=== PATIENT | male | born 1950 | race Caucasian/White ===

== ENCOUNTER 2018-01-29 12:54 | Outpatient (CLI) | payer MEDICARE, OTHER ==
--- NOTE | 2018-01-29 14:51 | XRAY Report ---
Procedure Date: 01/29/2018 Accession Number: [id number] / [id number] Procedure: XR - Hips 2V BILAT CPT Code: FULL RESULT: EXAM: PELVIS AND BILATERAL HIPS RADIOGRAPHY EXAM DATE: 01/29/2018 01:21 PM. CLINICAL HISTORY: DAWSON HIP px. COMPARISON: None. TECHNIQUE: 1 view of the pelvis and 1 view of each hip. FINDINGS: Bones: No fracture or bone lesion. Joints: The bilateral hip, pubis symphysis, and sacroiliac joints are preserved. Soft Tissues: Vascular stent in place. IMPRESSION: Unremarkable pelvis and bilateral hip radiography for age. RADIA
== END 2018-01-29 12:55 | disposition home or self-care (01) ==
LOC: DI 12:54
PROVIDERS: ATTEND Family Medicine
DX: M25.551 Pain in right hip (principal); M25.552 Pain in left hip
CPT/HCPCS: 73521

== ENCOUNTER 2019-07-30 10:02 | Outpatient (CLI) | payer MEDICARE, OTHER ==
[2019-07-30] MEDS ORDERED: IOVERSOL 320 100 ML VIAL IVP ONE ×2 (10:32→12:58)
--- NOTE | 2019-07-30 13:23 | CT Report ---
Reason: RETROMOLAR Procedure Date: 07/30/2019 Accession Number: [id number] / [id number] Procedure: CT - ANGIO LOWER EXT W/WO - RT CPT Code: Final Report FULL RESULT: EXAM: CT ANGIOGRAM RIGHT LOWER EXTREMITY WITH CONTRAST DATE: 07/30/2019 11:25 AM HISTORY: Retromolar cancer. Evaluation of the right lower extremity vessels for graft procedure. COMPARISONS: None. TECHNIQUE: Thin-section axial images were acquired of the lower extremity from the pelvis to the foot in arterial phase after administration of intravenous contrast. IV contrast: 120 cc Optiray 320. Post-processing: Multiplanar MPR and 3D MIP reformats. Other: None. In accordance with CT protocol optimization, one or more of the following dose reduction techniques were utilized for this exam: automated exposure control, adjustment of mA and/or KV based on patient size, or use of iterative reconstructive technique. FINDINGS: Bones: No fracture or bone lesion. Joints: Mild to moderate right hip osteoarthritis. Mild to moderate right knee osteoarthritis. Severe first MTP joint osteoarthritis. Musculature: Normal. No fatty atrophy. Vascular Structures: Calcified plaques at the visualized aorta. Moderate to severe stenosis at the origin of the right renal artery. There is a 1.1 x 0.8 cm saccular aneurysm arising from the right anterolateral aspect of the infrarenal segment of the abdominal aorta. A distal abdominal aortic stent is present. Calcified plaques within the iliac arteries. There is an approximately 6 x 5 mm saccular aneurysm arising from the anteromedial aspect of the right common femoral artery. The right superficial femoral artery is occluded from the level of the right groin to the level of the distal femoral metaphysis (approximate 24 cm long segment). The deep right femoral artery is patent. Contrast is present within the popliteal artery lumen. Calcified plaques at the popliteal artery. Mild to moderate focal stenoses at the popliteus artery. Calcified plaques within the proximal peroneal artery. The peroneal artery is patent. There is lack of contrast within the anterior tibial artery lumen from the level of the proximal tibial diaphysis through the foot. The posterior tibial artery is patent. There are areas of mild to severe stenoses within the visualized left superficial femoral artery. Moderate stenosis within the left popliteal artery. The left posterior tibial and peroneal arteries are patent. There is lack of contrast within the left anterior tibial artery at the level of the lower leg. Other: The other visualized soft tissues are unremarkable. IMPRESSION: 1. 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 2. Occlusion of the right superficial femoral artery from the level of the right groin to the level of the distal femoral metaphysis (approximately 24 cm long segment). Mild to moderate focal stenoses at the right popliteal artery. Occlusion of the right anterior tibial artery. 3. Areas of mild to severe stenoses at the visualized left superficial femoral artery. Moderate stenosis at the left popliteal artery. Occluded left anterior tibial artery. RADIA
--- NOTE | 2019-08-03 13:59 | CT Report ---
Reason: RETROMOLAR AREA CA Procedure Date: 07/30/2019 Accession Number: [id number] / [id number] Procedure: CT - CHEST W CPT Code: Final Report FULL RESULT: EXAM: CT CHEST EXAM DATE: 07/30/2019 11:25 AM. CLINICAL HISTORY: Retromolar area CA. COMPARISONS: None. TECHNIQUE: Routine helical CT imaging was performed through the chest. IV contrast: 120 mL Optiray 320. Reconstructions: Coronal and sagittal. In accordance with CT protocol optimization, one or more of the following dose reduction techniques were utilized for this exam: automated exposure control, adjustment of mA and/or KV based on patient size, or use of iterative reconstructive technique. FINDINGS: Lungs/Pleura: Paraseptal emphysema. Mild centrilobular emphysema. No lung mass or suspicious nodule. Mediastinum: At least moderate coronary arterial calcifications. No cardiomegaly. No bulky mediastinal adenopathy. No pericardial effusion. Moderate atherosclerotic calcifications of the descending thoracic aorta and aortic arch. No thoracic aortic aneurysm. Abdominal aortic stent partially imaged. Bones: Unremarkable. Visualized Abdomen: Dependent gallstones. Large right renal parapelvic cyst. Other: None. IMPRESSION: 1. No evidence for thoracic metastatic disease. 2. Emphysema. 3. Cholelithiasis. RADIA
== END 2019-07-30 10:03 | disposition home or self-care (01) ==
LOC: DI 10:02
PROVIDERS: ATTEND Otolaryngology
DX: C06.2 Malignant neoplasm of retromolar area (principal); I71.4 Abdominal aortic aneurysm, without rupture; I70.92 Chronic total occlusion of artery of the extremities; I70.201 Unspecified atherosclerosis of native arteries of extremities, right leg; J43.9 Emphysema, unspecified; K80.20 Calculus of gallbladder without cholecystitis without obstruction
CPT/HCPCS: 71260; 73706; Q9967

== ENCOUNTER 2019-08-13 10:43 | Outpatient (CLI) | payer MEDICARE, OTHER ==
[2019-08-13] MEDS ORDERED: IOVERSOL 320 100 ML VIAL IVP ONE ×2 (10:52→11:48)
[2019-08-13 11:11] LABS: CREATININE 1.3 mg/dL (0.6-1.2)
--- NOTE | 2019-08-13 14:03 | CT Report ---
Reason: RETROMOLAR CA Procedure Date: 08/13/2019 Accession Number: [id number] / [id number] Procedure: CT - ANGIO LOWER EXT W/WO - LT CPT Code: Final Report FULL RESULT: EXAM: CT ANGIOGRAM ABDOMEN AND PELVIS, WITH LOWER EXTREMITY ARTERY RUNOFF EXAM DATE: 08/13/2019 11:43 AM. CLINICAL HISTORY: Retromolar carcinoma. COMPARISON: 07/30/2019 right lower extremity CTA. TECHNIQUE: Routine helical imaging was performed through the abdomen, pelvis and bilateral lower extremities in arterial phase. IV Contrast: 125 mL Optiray 320. Reconstructions: Coronal, sagittal, and 3D MIP reconstructions were performed. FINDINGS: Vascular: Partially imaged stent graft in the distal infrarenal abdominal aorta. Calcified atherosclerotic plaque is present within the bilateral proximal common iliac arteries without significant stenosis. The internal and external iliac arteries are patent. The common femoral arteries patent. The superficial femoral artery is patent, with 90% stenosis at the mid superficial femoral artery (series 6 image 151). Additionally, there is 90% stenosis of the distal superficial femoral artery at the level of the adductor canal (series 6 image 204). The profunda femoris artery is patent. The popliteal artery is patent, with up to 50% stenosis. The proximal tibial artery is patent. There is occlusion of the proximal anterior tibial artery with immediate reconstitution. The distal half of the peroneal artery is occluded. The posterior tibial artery is patent. Inferior vena cava normal. Abdomen: Image salt abdominal organs are unremarkable. Imaged small bowel and colon is unremarkable. Pelvis: Pelvic organs, bowel, and bladder unremarkable for arterial phase enhancement. Pelvic contents otherwise normal. Extremities: Distal fibula fracture nonunion, with one half shaft width posterior displacement of the distal fracture fragment. Healed fracture of the distal tibial diaphysis. Postsurgical changes of prior instrumentation across the medial malleolus. No significant degenerative changes. IMPRESSION: 1. High-grade stenoses of the mid and distal left superficial arteries measuring 90%. 2. 50% stenosis of the left popliteal artery. 3. Occlusion of the proximal left anterior tibial artery and distal peroneal artery. RADIA
== END 2019-08-13 10:44 | disposition home or self-care (01) ==
LOC: DI 10:43
PROVIDERS: ATTEND Otolaryngology
DX: C06.2 Malignant neoplasm of retromolar area (principal); I70.202 Unspecified atherosclerosis of native arteries of extremities, left leg
CPT/HCPCS: 36415; 73706; 82565; Q9967

== ENCOUNTER 2020-12-20 15:54 | Emergency (ER) | payer MEDICARE, OTHER ==
--- NOTE | 2020-12-20 16:44 | ED Physician Documentation ---
PD HPI HEENT - Stated complaint Stated Complaint: SOA/GROWTH IN MOUTH WITH PX - Chief complaint Chief Complaint: Resp - History obtained from History obtained from: Patient - History of Present Illness Timing - onset: How many days ago (2-3 days of right lower gum/mouth irritation. New dentures feel like they were rubbing in that area and now pain with some swelling.) Timing - duration: Days (2) Timing - details: Gradual onset, Still present Location: Mouth (right lower gums. has had teeth all removed, and neck/mouth cancer with surgery and RT. Had dentures fitted, and started wearing them recently, with feeling of not fitting and rubbing.) Worsens: Swalllowing, Other (palpation) Associated symptoms: No: Fever, Congestion, Unable to swallow (but pain with swallowing.) Review of Systems Constitutional: denies: Fever, Chills Nose: denies: Rhinorrhea / runny nose, Congestion Respiratory: reports: Dyspnea, Cough (mild cough) GI: denies: Nausea, Vomiting, Diarrhea PD PAST MEDICAL HISTORY - Past Medical History Cardiovascular: Hypertension, High cholesterol, Peripheral Vascular Disease Respiratory: COPD GI: GERD : Benign prostate hypertrophy Musculoskeletal: Chronic back pain - Past Surgical History Ortho: Other (ORIF left tib/fib with multiple subsequent procedures including pedicle flap) Cardiovascular: Angioplasty (aortic) HEENT: Other (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 ) Derm: Skin grafts - Present Medications Home Medications: Ambulatory Orders Medication Instructions Recorded Confirmed Aspirin [Adult Aspirin Regimen] 81 mg PO DAILY 03/08/20 12/20/20 Ibuprofen [Motrin Ib] 400 mg PO DAILY 03/08/20 12/20/20 Lovastatin 20 mg PO DAILY 03/08/20 12/20/20 Metoprolol Tartrate 25 tab PO DAILY 03/08/20 12/20/20 Multivitamin [Multiple Vitamins] 1 tab PO DAILY 03/08/20 12/20/20 Omeprazole 20 mg PO DAILY 03/08/20 12/20/20 Sertraline HCl 100 mg PO DAILY 03/08/20 12/20/20 Tamsulosin [Flomax] 0.4 mg PO DAILY 03/08/20 12/20/20 diphenhydrAMINE [Benadryl] 25 mg PO Q4-6H PRN 03/08/20 12/20/20 oxyCODONE ER [OxyCONTIN] 10 mg PO QID 03/08/20 12/20/20 Chlorhexidine Gluconate [Peridex] 15 ml MM TID #118 ml 12/20/20 Clindamycin [Cleocin] 150 mg PO TID 7 Days #15 cap 12/20/20 Ipratropium/Albuterol [Combivent 2 puffs IH QID #1 inhaler 12/20/20 Respimat] LORazepam [Ativan] 1 mg PO Q6H PRN #20 tablet 12/20/20 dexAMETHasone [Decadron] 4 mg PO DAILY #5 tablet 12/20/20 - Allergies Allergies/Adverse Reactions: Allergies Allergy/AdvReac Type Severity Reaction Status Date / Time No Known Drug Allergies Allergy Verified 12/23/20 17:20 PD ED PE NORMAL - Vitals Vital signs reviewed: Yes - General General: Alert and oriented X 3, No acute distress, Well developed/nourished - HEENT HEENT: Ears normal, Moist mucous membranes, Other (old scarring right anterior neck and right inner mouth. There is linear white area lower gums (edentulous) with some redness and swelling of gum, but no fluctuance nor discahrge. ) Results - Vitals Vitals: Oxygen O2 Source Room air - Labs Labs: Laboratory Tests 12/20/20 12/20/20 12/20/20 17:09 17:09 17:09 WBC 4.7 L RBC 3.44 L Hgb 12.3 L Hct 35.2 L MCV 102.3 H MCH 35.8 H MCHC 34.9 RDW 13.3 Plt Count 193 MPV 9.8 Neut # (Auto) 2.8 Lymph # (Auto) 1.2 L [place] # (Auto) 0.5 Eos # (Auto) 0.2 Baso # (Auto) 0.1 Absolute Nucleated RBC 0.00 Nucleated RBC % 0.0 Sodium 139 Potassium 2.9 L Chloride 101 Carbon Dioxide 26 Anion Gap 12.0 BUN 9 Creatinine 0.8 Estimated GFR (MDRD) 96 Glucose 105 H Calcium 8.6 Total Bilirubin 0.5 AST 70 H ALT 34 Alkaline Phosphatase 114 Total Protein 7.0 Albumin 3.3 Globulin 3.7 Albumin/Globulin Ratio 0.9 L Lipase 78 H TSH 1.96 Salicylates < 6.0 Urine Opiates Screen Ur Oxycodone Screen Urine Methadone Screen Ur Propoxyphene Screen Acetaminophen 12 Ur Barbiturates Screen Ur Tricyclics Screen Ur Phencyclidine Scrn Ur Amphetamine Screen U Methamphetamines Scrn U Benzodiazepines Scrn Urine Cocaine Screen U Cannabinoids Screen Ethyl Alcohol 152.8 12/20/20 18:10 WBC RBC Hgb Hct MCV MCH MCHC RDW Plt Count MPV Neut # (Auto) Lymph # (Auto) [place] # (Auto) Eos # (Auto) Baso # (Auto) Absolute Nucleated RBC Nucleated RBC % Sodium Potassium Chloride Carbon Dioxide Anion Gap BUN Creatinine Estimated GFR (MDRD) Glucose Calcium Total Bilirubin AST ALT Alkaline Phosphatase Total Protein Albumin Globulin Albumin/Globulin Ratio Lipase TSH Salicylates Urine Opiates Screen NEGATIVE Ur Oxycodone Screen POSITIVE H Urine Methadone Screen NEGATIVE Ur Propoxyphene Screen NEGATIVE Acetaminophen Ur Barbiturates Screen NEGATIVE Ur Tricyclics Screen NEGATIVE Ur Phencyclidine Scrn NEGATIVE Ur Amphetamine Screen NEGATIVE U Methamphetamines Scrn NEGATIVE U Benzodiazepines Scrn POSITIVE H Urine Cocaine Screen NEGATIVE U Cannabinoids Screen NEGATIVE Ethyl Alcohol - Rads (name of study) chest xray Radiology: Prelim report reviewed (no pneumonia), See rad report PD MEDICAL DECISION MAKING - ED course Complexity details: reviewed results (chest xray without pneumonia), considered differential (he is concerned about recurrent tumor or alternatively abscess in area. Clinically not seeming space occupying enough to affect swallow but lot of scarring. Appears gum issue with redness and point of white/local infection or irritation. ), d/w patient Departure - Departure Disposition: 01 Home, Self Care Clinical Impression: Mild chronic obstructive pulmonary disease, Alcoholism Blister of gum with infection Qualifiers: Encounter type: initial encounter Qualified Code(s): S00.522A - Blister (nonthermal) of oral cavity, initial encounter Alcohol withdrawal Qualifiers: Complication of substance-induced condition: uncomplicated Qualified Code(s): F10.230 - Alcohol dependence with withdrawal, uncomplicated Condition: Stable Record reviewed to determine appropriate education?: Yes Instructions: ED Withdrawal Alcohol, ED COPD Flare Follow-Up: López Brasher MD [Primary Care Provider] - Prescriptions: LORazepam [Ativan] 1 mg PO Q6H PRN #20 tablet PRN Reason: Alcohol Withdrawal Clindamycin [Cleocin] 150 mg PO TID 7 Days #15 cap Ipratropium/Albuterol [Combivent Respimat] 2 puffs IH QID #1 inhaler dexAMETHasone [Decadron] 4 mg PO DAILY #5 tablet Chlorhexidine Gluconate [Peridex] 15 ml MM TID #118 ml Comments: Lesion on your gum looks like a an abrasion or irritation with local infection. I would use the chlorhexidine oral rinse twice daily in particular in that area, swish and spit. Also clindamycin as directed for the next 5 days for apparent infection in the gum. Regarding your breathing, I believe it is your COPD acting up which can relate to your starting smoking again and/or environmental irritants. Use the Combivent inhaler 2 puffs 4 times a day regularly. Also Decadron steroid daily for the next 5 days to help with bronchial inflammation. Please refrain from alcohol as you are hoping to do. Use lorazepam instead to help with withdrawal symptoms. Initially 1 to 2 tablets every 6-8 hours. Try to taper down the dose and frequency over the next 3 to 5 days to help with withdrawal. Follow-up with detox as planned. Follow-up with your throat cancer specialist for the planned follow-up scanning to ensure no recurrence of tumors. Discharge Date/Time: 12/20/20 18:43
[2020-12-20] MEDS ORDERED: IPRATROPIUM/ALBUTEROL 3 ML NEB INH STA (17:00)
[2020-12-20] MEDS ORDERED: CLINDAMYCIN 150 MG CAPSULE PO STA (17:03)
[2020-12-20] MEDS ORDERED: CHERRY SYRUP 10 ML UDC PO ONE (17:03)
[2020-12-20] MEDS ORDERED: DEXAMETHASONE 10 MG/ML VIAL PO STA (17:03)
[2020-12-20] MEDS ORDERED: diphenhydrAMINE ELIXIR 25 MG/10 ML UDC PO STA (17:04)
[2020-12-20 17:21] LABS: BASOPHILS # (AUTO) 0.1 10^3/uL (0.0-0.1); BASOPHILS % (AUTO) 1.1 %; EOSINOPHILS # (AUTO) 0.2 10^3/uL (0.0-0.7); EOSINOPHILS % (AUTO) 4.3 %; HCT - HEMATOCRIT 35.2 % (42.0-52.0); HGB - HEMOGLOBIN 12.3 g/dL (14.0-18.0); LYMPHOCYTES # (AUTO) 1.2 10^3/uL (1.5-3.5); LYMPHOCYTES % (AUTO) 25.2 %; MEAN CORPUSCULAR HEMOGLOBIN 35.8 pg (27.0-31.0); MEAN CORPUSCULAR HGB CONC 34.9 g/dL (32.0-36.0); MEAN CORPUSCULAR VOLUME 102.3 fL (80.0-94.0); MEAN PLATELET VOLUME 9.8 fL (7.4-11.4); MONOCYTES # (AUTO) 0.5 10^3/uL (0.0-1.0); MONOCYTES % (AUTO) 10.4 %; NEUTROPHILS # (AUTO) 2.8 10^3/uL (1.5-6.6); NEUTROPHILS % (AUTO) 58.6 %; PLT - PLATELET COUNT 193 10^3/uL (130-450); RED BLOOD COUNT 3.44 10^6/uL (4.70-6.10); RED CELL DISTRIBUTION WIDTH 13.3 % (12.0-15.0); WHITE BLOOD COUNT 4.7 x10^3/uL (4.8-10.8)
[2020-12-20 17:39] LABS: ACETAMINOPHEN 12 ug/mL (10-30); ALBUMIN 3.3 g/dL (3.2-5.5); ALBUMIN/GLOBULIN RATIO 0.9 (1.0-2.2); ALKALINE PHOSPHATASE 114 IU/L (42-121); ALT ALANINE AMINOTRANSFERASE 34 IU/L (10-60); AST ASPARTATE AMINOTRANSFERASE 70 IU/L (10-42); BILIRUBIN,TOTAL 0.5 mg/dL (0.2-1.0); BUN - BLOOD UREA NITROGEN 9 mg/dL (6-20); CALCIUM 8.6 mg/dL (8.5-10.3); CARBON DIOXIDE - CO2 26 mmol/L (21-32); CHLORIDE 101 mmol/L (101-111); CREATININE 0.8 mg/dL (0.6-1.2); ETOH - ETHANOL 152.8 mg/dL; GFR - MDRD 96 (>89); GLUCOSE 105 mg/dL (70-100); LIPASE 78 U/L (22-51); POTASSIUM 2.9 mmol/L (3.5-5.0); SALICYLATE < 6.0 mg/dL; SODIUM 139 mmol/L (135-145)
[2020-12-20 18:16] LABS: MUDS CUTOFF CONCENTRATIONS CUTOFF CONC BELOW:
--- NOTE | 2020-12-20 18:19 | XRAY Report ---
PROCEDURE: Chest 1 View X-Ray INDICATIONS: chest pain TECHNIQUE: One view of the chest was acquired. COMPARISON: Images from prior studies not available for review. FINDINGS: Surgical changes and devices: None. Lungs and pleura: No pleural effusions or pneumothorax. Lungs are clear. Mediastinum: Mediastinal contours appear normal. Heart size is normal. Bones and chest wall: No suspicious bony lesions. Overlying soft tissues appear unremarkable. IMPRESSION: Chest without acute cardiopulmonary abnormalities. No focal airspace disease. Reviewed by: Aniket Suazo MD on 12/20/2020 6:18 PM PDT Approved by: Aniket Suazo MD on 12/20/2020 6:18 PM PDT Station ID: [id number]
[2020-12-20] MEDS ORDERED: diazePAM 5 MG TABLET PO STA (18:21)
[2020-12-20 18:32] VITALS: BP 171/76
[2020-12-20 18:33] LABS: AMPHETAMINE SCREEN,URINE NEGATIVE (NEGATIVE); BARBITURATE SCREEN,UR NEGATIVE (NEGATIVE); BENZODIAZEPINES SCREEN, URINE POSITIVE (NEGATIVE); COCAINE SCREEN URINE NEGATIVE (NEGATIVE); METHADONE SCREEN, URINE NEGATIVE (NEGATIVE); METHAMPHETAMINES SCREEN, URINE NEGATIVE (NEGATIVE); OPIATE SCREEN, URINE NEGATIVE (NEGATIVE); OXYCODONE SCREEN, URINE POSITIVE (NEGATIVE); PROPOXYPHENE SCREEN, URINE NEGATIVE (NEGATIVE); THC CANNABINOID SCREEN, URINE NEGATIVE (NEGATIVE); TRICYCLIC ANTIDEPRESSANT,URINE NEGATIVE (NEGATIVE)
== END 2020-12-20 18:43 | disposition home or self-care (01) ==
LOC: ED 15:54
DX: S00.522A Blister (nonthermal) of oral cavity, initial encounter (principal); X58.XXXA Exposure to other specified factors, initial encounter; K05.11 Chronic gingivitis, non-plaque induced; F10.230 Alcohol dependence with withdrawal, uncomplicated; J44.9 Chronic obstructive pulmonary disease, unspecified; F17.200 Nicotine dependence, unspecified, uncomplicated; Z85.89 Personal history of malignant neoplasm of other organs and systems; I10 Essential (primary) hypertension; Z79.82 Long term (current) use of aspirin
CPT/HCPCS: 36415; 71045; 80053; 80306; 80307; 83690; 84443; 85025; 94640; 99283; 99284; A9270; G0480; 80320; 80329

== ENCOUNTER 2020-12-23 16:36 | Outpatient (CLI) | payer MEDICARE, OTHER | END 2020-12-23 16:37 | disposition critical access hospital (66) | LOC: EMS 16:36 | DX: R53.1 Weakness (principal) | CPT/HCPCS: A0425; A0429 ==

== ENCOUNTER 2020-12-23 17:12 | Emergency (ER) | payer MEDICARE, OTHER ==
[2020-12-23] MEDS ORDERED: FOLIC ACID INJ 1 MG, THIAMINE INJ 100 MG, MAGNESIUM SULFATE 2 GM, MULTIVITAMIN 10 ML in... IV STA ×5 (17:30)
--- NOTE | 2020-12-23 17:44 | ED Physician Documentation ---
History of Present Illness - Stated complaint Stated Complaint: WEAKNESS - Chief complaint Chief Complaint: General - History obtained from History obtained from: Patient - History of Present Illness Timing: Today Pain level max: 0 Pain level now: 0 - Additonal information Additional information: Patient is a 70-year-old male, alcoholic who presents to the emergency department requesting detox. He states he has been feeling weak for the past week or so. He states he has had several episodes of near falling. No injuries. He also states that he has a sore on his tongue, history of mouth cancer, unclear which type. Patient does not know. He is not suicidal or homicidal. He wants help stopping drinking. Has been taking Ativan at home and drinking 2-3 drinks per day. Review of Systems Ten Systems: 10 systems reviewed and negative Constitutional: denies: Fever, Chills Respiratory: denies: Cough GI: denies: Vomiting, Diarrhea Musculoskeletal: denies: Neck pain, Back pain Neurologic: denies: Headache PD PAST MEDICAL HISTORY - Past Medical History Past Medical History: Yes Cardiovascular: Hypertension, High cholesterol, Peripheral Vascular Disease Respiratory: Emphysema Neuro: None Endocrine/Autoimmune: None GI: GERD : Benign prostate hypertrophy HEENT: None Psych: None Musculoskeletal: Chronic back pain Derm: Other - Past Surgical History Past Surgical History: Yes Ortho: Other Cardiovascular: Angioplasty HEENT: Other Derm: Skin grafts - Present Medications Home Medications: Ambulatory Orders Medication Instructions Recorded Confirmed Aspirin [Adult Aspirin Regimen] 81 mg PO DAILY 03/08/20 12/23/20 Metoprolol Tartrate 25 tab PO BID 03/08/20 12/23/20 Multivitamin [Multiple Vitamins] 1 tab PO DAILY 03/08/20 12/23/20 Omeprazole 20 mg PO DAILY 03/08/20 12/23/20 Sertraline HCl 100 mg PO DAILY 03/08/20 12/23/20 Tamsulosin [Flomax] 0.4 mg PO DAILY 03/08/20 12/23/20 oxyCODONE ER [OxyCONTIN] 10 mg PO QID 03/08/20 12/23/20 Clindamycin [Cleocin] 150 mg PO TID 7 Days #15 cap 12/20/20 12/23/20 Ipratropium/Albuterol [Combivent 2 puffs IH QID #1 inhaler 12/20/20 12/23/20 Respimat] LORazepam [Ativan] 1 mg PO Q6H PRN #20 tablet 12/20/20 12/23/20 dexAMETHasone [Decadron] 4 mg PO DAILY #5 tablet 12/20/20 12/23/20 Baclofen 20 mg PO 12/23/20 Benzocaine [Hurricaine] 1 spray TOP DAILY 12/23/20 12/23/20 Gabapentin [Neurontin] 900 mg PO QID 12/23/20 12/23/20 Senna [Senokot] 1 tab PO DAILY 12/23/20 12/23/20 - Allergies Allergies/Adverse Reactions: Allergies Allergy/AdvReac Type Severity Reaction Status Date / Time No Known Drug Allergies Allergy Verified 12/23/20 17:20 - Social History Does the pt smoke?: No Smoking Status: Never smoker Does the pt drink ETOH?: Yes Does the pt have substance abuse?: No - Immunizations Immunizations are current?: Yes PD ED PE NORMAL - Vitals Vital signs reviewed: Yes - General General: Alert and oriented X 3, No acute distress - HEENT HEENT: Other (Dry mucous membranes. There is a small white lesion on the right side of the tongue. No visible ulceration.) - Neck Neck: Supple, no meningeal sign - Cardiac Cardiac: RRR, Strong equal pulses - Respiratory Respiratory: No respiratory distress, Clear bilaterally - Abdomen Abdomen: Soft, Non tender, Non distended - Derm Derm: Warm and dry - Extremities Extremities: No edema, No calf tenderness / cord - Neuro Neuro: Alert and oriented X 3 - Psych Psych: Normal mood, Normal affect Results - Vitals Vitals: Vital Signs - 24 hr 12/23/20 12/23/20 12/23/20 17:17 19:20 21:00 Temperature 36.7 C 36.6 C 36.7 C Heart Rate 70 74 75 Respiratory 12 17 17 Rate Blood Pressure 108/63 157/97 H 172/105 H O2 Saturation 98 98 98 Oxygen O2 Source Room air - Labs Labs: Laboratory Tests 12/23/20 12/23/20 12/23/20 17:36 17:36 17:40 WBC 5.0 RBC 3.26 L Hgb 11.7 L Hct 34.2 L MCV 104.9 H MCH 35.9 H MCHC 34.2 RDW 13.9 Plt Count 184 MPV 9.8 Neut # (Auto) 4.5 Lymph # (Auto) 0.3 L [facility] # (Auto) 0.2 Eos # (Auto) 0.0 Baso # (Auto) 0.0 Absolute Nucleated RBC 0.00 Nucleated RBC % 0.0 Sodium Potassium Chloride Carbon Dioxide Anion Gap BUN Creatinine Estimated GFR (MDRD) Glucose Calcium Phosphorus Magnesium Total Bilirubin AST ALT Alkaline Phosphatase Total Protein Albumin Globulin Albumin/Globulin Ratio Lipase TSH Urine Color YELLOW Urine Clarity CLEAR Urine pH 6.0 Ur Specific [place] 1.015 Urine Protein NEGATIVE Urine Glucose (UA) NEGATIVE Urine Ketones NEGATIVE Urine Occult Blood NEGATIVE Urine Nitrite NEGATIVE Urine Bilirubin NEGATIVE Urine Urobilinogen 0.2 (NORMAL) Ur Leukocyte Esterase NEGATIVE Ur Microscopic Review NOT INDICATED Urine Culture Comments NOT INDICATED Nasal Adenovirus (PCR) NOT DETECTED Nasal B. parapertussis DNA (PCR) NOT DETECTED Nasal Coronavir 229E PCR NOT DETECTED Nasal Coronavir HKU1 PCR NOT DETECTED Nasal Coronavir NL63 PCR NOT DETECTED Nasal Coronavir OC43 PCR NOT DETECTED Nasal Enterovir/Rhinovir PCR NOT DETECTED Nasal Influenza B PCR NOT DETECTED Nasal Influenza A PCR NOT DETECTED Nasal Parainfluen 1 PCR NOT DETECTED Nasal Parainfluen 2 PCR NOT DETECTED Nasal Parainfluen 3 PCR NOT DETECTED Nasal Parainfluen 4 PCR NOT DETECTED Nasal RSV (PCR) NOT DETECTED Nasal B.pertussis DNA PCR NOT DETECTED Nasal C.pneumoniae (PCR) NOT DETECTED Jamil Human Metapneumo PCR NOT DETECTED Nasal M.pneumoniae (PCR) NOT DETECTED Nasal SARS-CoV-2 (PCR) NOT DETECTED Salicylates Urine Opiates Screen NEGATIVE Ur Oxycodone Screen POSITIVE H Urine Methadone Screen NEGATIVE Ur Propoxyphene Screen NEGATIVE Acetaminophen Ur Barbiturates Screen NEGATIVE Ur Tricyclics Screen NEGATIVE Ur Phencyclidine Scrn NEGATIVE Ur Amphetamine Screen NEGATIVE U Methamphetamines Scrn NEGATIVE U Benzodiazepines Scrn POSITIVE H Urine Cocaine Screen NEGATIVE U Cannabinoids Screen NEGATIVE Ethyl Alcohol 12/23/20 12/23/20 17:40 17:40 WBC RBC Hgb Hct MCV MCH MCHC RDW Plt Count MPV Neut # (Auto) Lymph # (Auto) [facility] # (Auto) Eos # (Auto) Baso # (Auto) Absolute Nucleated RBC Nucleated RBC % Sodium 138 Potassium 3.0 L Chloride 98 L Carbon Dioxide 25 Anion Gap 15.0 H BUN 11 Creatinine 0.9 Estimated GFR (MDRD) 84 L Glucose 135 H Calcium 7.9 L Phosphorus 3.7 Magnesium 1.6 L Total Bilirubin 0.8 AST 65 H ALT 35 Alkaline Phosphatase 93 Total Protein 6.4 L Albumin 3.0 L Globulin 3.4 Albumin/Globulin Ratio 0.9 L Lipase 49 TSH 1.24 Urine Color Urine Clarity Urine pH Ur Specific [place] Urine Protein Urine Glucose (UA) Urine Ketones Urine Occult Blood Urine Nitrite Urine Bilirubin Urine Urobilinogen Ur Leukocyte Esterase Ur Microscopic Review Urine Culture Comments Nasal Adenovirus (PCR) Nasal B. parapertussis DNA (PCR) Nasal Coronavir 229E PCR Nasal Coronavir HKU1 PCR Nasal Coronavir NL63 PCR Nasal Coronavir OC43 PCR Nasal Enterovir/Rhinovir PCR Nasal Influenza B PCR Nasal Influenza A PCR Nasal Parainfluen 1 PCR Nasal Parainfluen 2 PCR Nasal Parainfluen 3 PCR Nasal Parainfluen 4 PCR Nasal RSV (PCR) Nasal B.pertussis DNA PCR Nasal C.pneumoniae (PCR) Jamil Human Metapneumo PCR Nasal M.pneumoniae (PCR) Nasal SARS-CoV-2 (PCR) Salicylates < 6.0 Urine Opiates Screen Ur Oxycodone Screen Urine Methadone Screen Ur Propoxyphene Screen Acetaminophen < 10 L Ur Barbiturates Screen Ur Tricyclics Screen Ur Phencyclidine Scrn Ur Amphetamine Screen U Methamphetamines Scrn U Benzodiazepines Scrn Urine Cocaine Screen U Cannabinoids Screen Ethyl Alcohol 90.2 PD MEDICAL DECISION MAKING - ED course Complexity details: reviewed results, re-evaluated patient, considered differential, d/w patient ED course: Patient feels better after banana bag. He does have some mild electrolyte abnormalities. Tolerating p.o. without difficulty. Ambulating with a steady gait. There are no detox beds available [facility], but the [facility] stabilization facility in [place] states they will likely have a bed tomorrow. Patient is comfortable going home at this time and will follow up with detox tomorrow. He will return if he worsens. Patient counseled regarding signs and symptoms for which I believe and urgent re-evaluation would be necessary. Patient with good understanding of and agreement to plan and is comfortable going home at this time This document was made in part using voice recognition software. While efforts are made to proofread this document, sound alike and grammatical errors may occur. Departure - Departure Disposition: 01 Home, Self Care Clinical Impression: Alcoholism, Dehydration, Hypomagnesemia Condition: Good Instructions: ED Withdrawal Alcohol, ED Dehydration Follow-Up: López Brasher MD [Primary Care Provider] - Within 3 Days Comments: Please call [facility] tomorrow in [place] as they may have a bed for you. Contact: [address] [address] Fax: Discharge Date/Time: 12/23/20 21:45
[2020-12-23 17:45] LABS: MUDS CUTOFF CONCENTRATIONS CUTOFF CONC BELOW:
[2020-12-23 17:47] LABS: BASOPHILS % (AUTO) 0.2 %; HCT - HEMATOCRIT 34.2 % (42.0-52.0); HGB - HEMOGLOBIN 11.7 g/dL (14.0-18.0); LYMPHOCYTES # (AUTO) 0.3 10^3/uL (1.5-3.5); LYMPHOCYTES % (AUTO) 5.4 %; MEAN CORPUSCULAR HEMOGLOBIN 35.9 pg (27.0-31.0); MEAN CORPUSCULAR HGB CONC 34.2 g/dL (32.0-36.0); MEAN CORPUSCULAR VOLUME 104.9 fL (80.0-94.0); MEAN PLATELET VOLUME 9.8 fL (7.4-11.4); MONOCYTES # (AUTO) 0.2 10^3/uL (0.0-1.0); MONOCYTES % (AUTO) 3.4 %; NEUTROPHILS # (AUTO) 4.5 10^3/uL (1.5-6.6); NEUTROPHILS % (AUTO) 90.4 %; PLT - PLATELET COUNT 184 10^3/uL (130-450); RED BLOOD COUNT 3.26 10^6/uL (4.70-6.10); RED CELL DISTRIBUTION WIDTH 13.9 % (12.0-15.0)
[2020-12-23 17:52] LABS: BILIRUBIN,URINE NEGATIVE (NEGATIVE); GLUCOSE, URINE (UA) NEGATIVE (NEGATIVE); KETONES,URINE (UA) NEGATIVE (NEGATIVE); LEUKOCYTE ESTERASE, URINE NEGATIVE (NEGATIVE); NITRITE,URINE NEGATIVE (NEGATIVE); OCCULT BLOOD,URINE NEGATIVE (NEGATIVE); PROTEIN,URINE NEGATIVE (NEGATIVE); UROBILINOGEN,URINE 0.2 (NORMAL) E.U./dL (NORMAL)
[2020-12-23 17:53] LABS: CLARITY,URINE CLEAR (CLEAR)
[2020-12-23 18:01] LABS: AMPHETAMINE SCREEN,URINE NEGATIVE (NEGATIVE); BARBITURATE SCREEN,UR NEGATIVE (NEGATIVE); BENZODIAZEPINES SCREEN, URINE POSITIVE (NEGATIVE); COCAINE SCREEN URINE NEGATIVE (NEGATIVE); METHADONE SCREEN, URINE NEGATIVE (NEGATIVE); METHAMPHETAMINES SCREEN, URINE NEGATIVE (NEGATIVE); OPIATE SCREEN, URINE NEGATIVE (NEGATIVE); OXYCODONE SCREEN, URINE POSITIVE (NEGATIVE); PROPOXYPHENE SCREEN, URINE NEGATIVE (NEGATIVE); THC CANNABINOID SCREEN, URINE NEGATIVE (NEGATIVE); TRICYCLIC ANTIDEPRESSANT,URINE NEGATIVE (NEGATIVE)
[2020-12-23 18:02] LABS: ACETAMINOPHEN < 10 ug/mL (10-30); ALBUMIN/GLOBULIN RATIO 0.9 (1.0-2.2); ALKALINE PHOSPHATASE 93 IU/L (42-121); ALT ALANINE AMINOTRANSFERASE 35 IU/L (10-60); AST ASPARTATE AMINOTRANSFERASE 65 IU/L (10-42); BILIRUBIN,TOTAL 0.8 mg/dL (0.2-1.0); BUN - BLOOD UREA NITROGEN 11 mg/dL (6-20); CALCIUM 7.9 mg/dL (8.5-10.3); CARBON DIOXIDE - CO2 25 mmol/L (21-32); CHLORIDE 98 mmol/L (101-111); CREATININE 0.9 mg/dL (0.6-1.2); ETOH - ETHANOL 90.2 mg/dL; GFR - MDRD 84 (>89); GLUCOSE 135 mg/dL (70-100); LIPASE 49 U/L (22-51); MAGNESIUM 1.6 mg/dL (1.7-2.8); PHOSPHORUS 3.7 mg/dL (2.5-4.6); SALICYLATE < 6.0 mg/dL; SODIUM 138 mmol/L (135-145); TOTAL PROTEIN 6.4 g/dL (6.7-8.2)
[2020-12-23 18:38] LABS: B. PARAPERTUSSIS- RESP PCR PAN NOT DETECTED; B. PERTUSSIS- RESP PCR PANEL NOT DETECTED; C. PNEUMONIAE- RESP PCR PANEL NOT DETECTED; CORONAVIRUS 229E-RESP PCR NOT DETECTED; CORONAVIRUS HKU1-RESP PCR NOT DETECTED; CORONAVIRUS NL63-RESP PCR NOT DETECTED; CORONAVIRUS OC43-RESP PCR NOT DETECTED; HUMAN METAPNEUMOVIRUS NOT DETECTED; INFLUENZA A- RESP PCR PANEL NOT DETECTED; INFLUENZA B - RESP PCR PANEL NOT DETECTED; M. PNEUMONIAE- RESP PCR PANEL NOT DETECTED; PARAINFLUENZA VIRUS 1 NOT DETECTED; PARAINFLUENZA VIRUS 2 NOT DETECTED; PARAINFLUENZA VIRUS 3 NOT DETECTED; PARAINFLUENZA VIRUS 4 NOT DETECTED; RHINOVIRUS/ENTEROVIRUS NOT DETECTED; RSV- RESP PCR PANEL NOT DETECTED; SARS-CoV-2 -RESP PCR PANEL NOT DETECTED
[2020-12-23] MEDS ORDERED: LORazepam 1 MG TABLET PO STA (21:14)
[2020-12-23 21:35] VITALS: BP 172/105
== END 2020-12-23 21:45 | disposition home or self-care (01) ==
LOC: EDUNIT# → ED 17:12 → SUPCPDRO 17:12 → ED 21:45
DX: F10.20 Alcohol dependence, uncomplicated (principal); E86.0 Dehydration; E83.42 Hypomagnesemia; K13.70 Unspecified lesions of oral mucosa; Z85.89 Personal history of malignant neoplasm of other organs and systems; Z20.822 Contact with and (suspected) exposure to COVID-19; I10 Essential (primary) hypertension; Z79.82 Long term (current) use of aspirin
CPT/HCPCS: 36415; 80053; 80306; 80307; 81003; 83690; 83735; 84100; 84443; 85025; 87631; 96360; 96361; 99284; G0480; J3411; J8499; 0202U; 80320; 80329; 81001; 87086

== ENCOUNTER 2022-08-12 12:00 | Outpatient (CLI) | payer MEDICARE, OTHER | END 2022-08-12 12:01 | disposition critical access hospital (66) | LOC: EMS 12:00 | DX: R06.03 Acute respiratory distress (principal); S29.9XXA Unspecified injury of thorax, initial encounter; W18.30XA Fall on same level, unspecified, initial encounter; Y92.002 Bathroom of unspecified non-institutional (private) residence as the place of occurrence of the external cause | CPT/HCPCS: A0425; A0427 ==

== ENCOUNTER 2022-08-12 12:31 | Inpatient (IN) | payer MEDICARE, OTHER ==
[2022-08-12] MEDS ORDERED: fentaNYL 100 MCG/2 ML VIAL IVP STA (12:35)
[2022-08-12] MEDS ORDERED: SODIUM CHLORIDE 0.9% 1,000 ML IV STA (12:35)
[2022-08-12] MEDS ORDERED: PROPOFOL 200 MG/20 ML VIAL IVP STA (12:35)
[2022-08-12] MEDS ORDERED: LIDOCAINE 1%-EPI 1:100000 20 ML MDV SUBQ STA (12:41)
[2022-08-12 12:50] LABS: BASOPHILS # (AUTO) 0.1 10^3/uL (0.0-0.1); BASOPHILS % (AUTO) 0.7 %; EOSINOPHILS % (AUTO) 0.1 %; HCT - HEMATOCRIT 30.5 % (42.0-52.0); HGB - HEMOGLOBIN 8.8 g/dL (14.0-18.0); LYMPHOCYTES # (AUTO) 1.4 10^3/uL (1.5-3.5); LYMPHOCYTES % (AUTO) 7.3 %; MEAN CORPUSCULAR HEMOGLOBIN 24.9 pg (27.0-31.0); MEAN CORPUSCULAR HGB CONC 28.9 g/dL (32.0-36.0); MEAN CORPUSCULAR VOLUME 86.2 fL (80.0-94.0); MEAN PLATELET VOLUME 10.8 fL (7.4-11.4); MONOCYTES # (AUTO) 1.5 10^3/uL (0.0-1.0); MONOCYTES % (AUTO) 7.7 %; NEUTROPHILS # (AUTO) 16.3 10^3/uL (1.5-6.6); NEUTROPHILS % (AUTO) 83.6 %; PLT - PLATELET COUNT 263 10^3/uL (130-450); RED BLOOD COUNT 3.54 10^6/uL (4.70-6.10); RED CELL DISTRIBUTION WIDTH 19.9 % (12.0-15.0); WHITE BLOOD COUNT 19.5 x10^3/uL (4.8-10.8)
[2022-08-12] MEDS ORDERED: iohexoL-300 100 ML VIAL ONE (12:53)
[2022-08-12 12:57] LABS: INR 1.3 (0.8-1.2); PT - PROTHROMBIN TIME 14.9 secs (9.9-12.6)
--- NOTE | 2022-08-12 12:57 | XRAY Report ---
PROCEDURE: Chest 1 View X-Ray INDICATIONS: Chest wall injury TECHNIQUE: One view of the chest was acquired. COMPARISON: None. FINDINGS: Surgical changes and devices: None. Lungs and pleura: Large right pneumothorax. Mediastinum: Mediastinal contours appear normal. Heart size is normal. Bones and chest wall: There are are right ninth and 10th and 11th rib fractures. No suspicious bony lesions. Overlying soft tissues appear unremarkable. IMPRESSION: Right ninth, 10th, 11th rib fractures with a large right pneumothorax. Findings were discussed with the emergency department at 11:[address] Castle is aware of findings . Reviewed by: Ryan Pat on 08/12/2022 11:55 AM [facility] Approved by: Ryan Pat on 08/12/2022 11:55 AM [facility] Station ID: [id number]
--- NOTE | 2022-08-12 13:06 | ED Physician Documentation ---
PD HPI MAJOR TRAUMA - Stated complaint Stated Complaint: GLF/RIB PX - Chief complaint Chief Complaint: Trauma Ch/Bk - History obtained from History obtained from: Patient, EMS - Additional information Additional information: This is 71-year-old gentleman with history of COPD who wears oxygen at home. He was feeling weak and fell and hit his right chest wall on the ground on the way down. He is brought in by ambulance with clear signs of a right-sided pneumothorax including subcu air and lowering blood pressures. Because of acuity history was somewhat limited on initial evaluation. He says he has no heart problems though. Review of the chart shows that he has a history of alcoholism. 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 PD PAST MEDICAL HISTORY - Past Medical History Cardiovascular: Hypertension, High cholesterol, Peripheral Vascular Disease Respiratory: Emphysema Neuro: None Endocrine/Autoimmune: None GI: GERD : Benign prostate hypertrophy HEENT: None Psych: None Musculoskeletal: Chronic back pain Derm: Other - Past Surgical History Past Surgical History: Yes Ortho: Other Cardiovascular: Angioplasty HEENT: Other Derm: Skin grafts - Present Medications Home Medications: Ambulatory Orders Medication Instructions Recorded Confirmed Aspirin [Adult Aspirin Regimen] 81 mg PO DAILY 03/08/20 12/23/20 Metoprolol Tartrate 25 tab PO BID 03/08/20 12/23/20 Multivitamin [Multiple Vitamins] 1 tab PO DAILY 03/08/20 12/23/20 Omeprazole 20 mg PO DAILY 03/08/20 12/23/20 Sertraline HCl 100 mg PO DAILY 03/08/20 12/23/20 Tamsulosin [Flomax] 0.4 mg PO DAILY 03/08/20 12/23/20 oxyCODONE ER [OxyCONTIN] 10 mg PO QID 03/08/20 12/23/20 Clindamycin [Cleocin] 150 mg PO TID 7 Days #15 cap 12/20/20 12/23/20 Ipratropium/Albuterol [Combivent 2 puffs IH QID #1 inhaler 12/20/20 12/23/20 Respimat] LORazepam [Ativan] 1 mg PO Q6H PRN #20 tablet 12/20/20 12/23/20 dexAMETHasone [Decadron] 4 mg PO DAILY #5 tablet 12/20/20 12/23/20 Baclofen 20 mg PO 12/23/20 Benzocaine [Hurricaine] 1 spray TOP DAILY 12/23/20 12/23/20 Gabapentin [Neurontin] 900 mg PO QID 12/23/20 12/23/20 Senna [Senokot] 1 tab PO DAILY 12/23/20 12/23/20 - Allergies Allergies/Adverse Reactions: Allergies Allergy/AdvReac Type Severity Reaction Status Date / Time No Known Drug Allergies Allergy Verified 12/23/20 17:20 - Social History Does the pt smoke?: No Smoking Status: Never smoker Does the pt drink ETOH?: Yes Does the pt have substance abuse?: No - Immunizations Immunizations are current?: Yes PD ED PE NORMAL - Vitals Vital signs reviewed: Yes - General General: Alert and oriented X 3, Other (He appears to be in significant pain from right-sided chest wall injuries. He is very thin.) - HEENT HEENT: PERRL, EOMI - Neck Neck: Supple, no meningeal sign, No bony TTP, Other (No tracheal deviation) - Cardiac Cardiac: RRR, No murmur - Respiratory Respiratory: Other (Subcutaneous air and severe right-sided chest wall tenderness) - Abdomen Abdomen: Normal bowel sounds, Soft, Other (Significant right upper quadrant tenderness.) - Back Back: No CVA TTP, No spinal TTP - Derm Derm: Normal color, Warm and dry - Extremities Extremities: No edema, No calf tenderness / cord - Neuro Neuro: Alert and oriented X 3, Normal speech Results - Vitals Vitals: Vital Signs - 24 hr 08/12/22 08/12/22 08/12/22 12:39 14:00 14:03 Temperature 36.5 C Heart Rate 101 H 88 90 Respiratory 23 21 21 Rate Blood Pressure 131/80 H 169/86 H 110/82 H O2 Saturation 93 100 100 If not protocol 2 : Oxygen Flow, liters/minute 08/12/22 14:30 Temperature Heart Rate 95 Respiratory 19 Rate Blood Pressure 129/79 O2 Saturation 100 If not protocol 2 : Oxygen Flow, liters/minute Oxygen O2 Source Nasal cannula - Labs Labs: Laboratory Tests 08/12/22 08/12/22 08/12/22 12:38 12:38 12:38 WBC 19.5 H RBC 3.54 L Hgb 8.8 L Hct 30.5 L MCV 86.2 MCH 24.9 L MCHC 28.9 L RDW 19.9 H Plt Count 263 MPV 10.8 Neut # (Auto) 16.3 H Lymph # (Auto) 1.4 L [place] # (Auto) 1.5 H Eos # (Auto) 0.0 Baso # (Auto) 0.1 Absolute Nucleated RBC 0.00 Nucleated RBC % 0.0 RBC Morph Micro Appear 1+ SPHEROCYTES PT 14.9 H INR 1.3 H Sodium 145 Potassium 4.4 Chloride 100 L Carbon Dioxide 20 L Anion Gap 25.0 H BUN 20 Creatinine 1.1 Estimated GFR (MDRD) 66 L Glucose 123 H Calcium 9.5 Total Bilirubin 2.5 H AST 109 H ALT 44 Alkaline Phosphatase 437 H Total Protein 7.4 Albumin 2.8 L Globulin 4.6 H Albumin/Globulin Ratio 0.6 L Blood Type Blood Type Recheck Antibody Screen 08/12/22 08/12/22 12:38 12:46 WBC RBC Hgb Hct MCV MCH MCHC RDW Plt Count MPV Neut # (Auto) Lymph # (Auto) [place] # (Auto) Eos # (Auto) Baso # (Auto) Absolute Nucleated RBC Nucleated RBC % RBC Morph Micro Appear PT INR Sodium Potassium Chloride Carbon Dioxide Anion Gap BUN Creatinine Estimated GFR (MDRD) Glucose Calcium Total Bilirubin AST ALT Alkaline Phosphatase Total Protein Albumin Globulin Albumin/Globulin Ratio Blood Type O POSITIVE Blood Type Recheck O POSITIVE Antibody Screen NEGATIVE - Rads (name of study) Initial chest x-ray shows a very large right-sided pneumothorax with 2 rib fractures. Radiology: Final report received, EMP read indepedently Postprocedural x-ray shows appropriate placement of right-sided chest tube with reexpansion of the right lung Radiology: Final report received, EMP read indepedently CT of the head demonstrates right maxillary sinus opacification, no trauma Radiology: Final report received, EMP read indepedently CT of the chest with IV contrast demonstrates 25% residual pneumothorax on the right with right ninth and 10th rib fractures Radiology: Final report received, EMP read indepedently CT C Spine - NAD Radiology: Final report received, EMP read indepedently CT of the abdomen pelvis demonstrates extensive hepatic densities consistent with cancerous disease. No trauma. Radiology: Final report received, EMP read indepedently Procedures - Chest Tube (location) - Major right 4th middle axillary line Chest tube preparation: Consent obtained (Verbally, his acuity did not allow for written consent), Sterile prep and drape Chest tube location: Right Chest tube anesthesia: Lidocaine Chest tube size: 20 Chest tube return: Air Chest tube after care: Sutured, Confirmed with xray, Pt tolerated well - Procedural sedation Sedation prep: Informed consent, Time out completed, ASA 3 - severe disease Sedation Medications: propofol (60 then 40 mg IVP) Mallampati classification: I Patient status during sedation: Responds to tactile Sedation recovery: Recovered uneventfully Time in sedation (Minutes): 10 PD Medical Decision Making - ED course ED course: This is a frail-appearing 71-year-old gentleman that fell today injuring his right chest wall and he clearly has signs of significant chest wall injuries with likely pneumothorax. He was attended to immediately. He was hemodynamically stable and chest x-ray was done showing a large right-sided hemothorax. Using conscious sedation with propofol a chest tube was expeditiously placed. He was not leveled a full trauma in the field but I did call the general surgeon, Dr. Li shortly after the chest tube was placed to consult. CT goldman scan was done. On my review of the initial results, He still had some residual pneumothorax, and several rib fractures. Also concerning the innumerable lesions in the liver that look consistent with metastatic cancer. On further history after the initial read of his CAT scans. He had head neck cancer addressed at [facility] maybe 4 years ago. He thinks he was in remission, and had a PET scare and a year later that was negative. I discussed with the patient that it looks like most likely his cancer has returned with metastases to liver. Alternatively there may be some other source of cancer. Dr. Li is admitting the patient, he requested that I speak with our hospitalist, Dr. Segura for discharge planning and hospice consultation which I did do. - Critical Care Time(min): 42 Time Includes: Direct patient care, Review records, Reassess patient, Document care, Coordinate care, Medical consult Data interpretation: Labs, Pulse ox Procedures included in critical care time: Peripheral IV Procedures excluded from critical care time: Chest tube Departure - Departure Disposition: [facility] DC/Xfer Clinical Impression: Pneumothorax, right, Ground-level fall, Metastatic disease Fracture of ribs, two Qualifiers: Encounter type: initial encounter Fracture type: closed Laterality: right Qualified Code(s): S22.41XA - Multiple fractures of ribs, right side, initial encounter for closed fracture Condition: Serious
[2022-08-12 13:23] LABS: ALBUMIN 2.8 g/dL (3.2-5.5); ALBUMIN/GLOBULIN RATIO 0.6 (1.0-2.2); BILIRUBIN,TOTAL 2.5 mg/dL (0.2-1.0); CALCIUM 9.5 mg/dL (8.5-10.3); CREATININE 1.1 mg/dL (0.6-1.2); POTASSIUM 4.4 mmol/L (3.5-5.0); TOTAL PROTEIN 7.4 g/dL (6.7-8.2)
[2022-08-12] MEDS ORDERED: HYDROmorphone 1 MG/ML CARPUJECT IVP STA ×2 (13:35→15:10)
--- NOTE | 2022-08-12 13:38 | XRAY Report ---
PROCEDURE: Chest for Line Placement INDICATIONS: Status post chest tube TECHNIQUE: One view of the chest was acquired. COMPARISON: None. FINDINGS: Surgical changes and devices: Interval placement of a right-sided chest tube. Lungs and pleura: No pleural effusions or pneumothorax. Lungs are clear. Mediastinum: Mediastinal contours appear normal. Heart size is normal. Bones and chest wall: Fractures of the right 10th and 11th ribs are again seen. IMPRESSION: Interval placement of a right-sided chest tube with reexpansion of the right lung. Reviewed by: Ryan Pat on 08/12/2022 12:36 PM [facility] Approved by: Ryan Pat on 08/12/2022 12:36 PM [facility] [place] Station ID: [id number]
[2022-08-12] MEDS ORDERED: iohexoL-300 100 ML VIAL IVP ONE (13:44)
--- NOTE | 2022-08-12 14:17 | HISTORY & PHYSICAL EXAMINATION ---
Chief Complaint - Chief Complaint Chief Complaint: weak and fell at home History of Present Illness - History Obtained From Records Reviewed: yes History obtained from: pt and ER MD Exam Limitations: none - History of Present Illness HPI Comment/Other: frail 71 year old gentlemen. lives alone. history tobacco use, home O2, head and neck cancer. ground level fall with right ptx and 2 broken ribs by cxr. ct chest pending. feeling better after chest tube placement. has been very weak for a long time. sister lives in adjacent apartment. she is on dialysis. no other support. History - Past Medical History Cardiovascular: reports: Hypertension, High cholesterol, Peripheral Vascular Disease Respiratory: reports: Emphysema Neuro: reports: None Endocrine/Autoimmune: reports: None GI: reports: GERD : reports: Benign prostate hypertrophy HEENT: reports: None Psych: reports: None Musculoskeletal: reports: Chronic back pain Derm: reports: Other MRSA Hx?: No - Past Surgical History Ortho: reports: Other Cardiovascular: reports: Angioplasty HEENT: reports: Other Derm: reports: Skin grafts - Substance History Use: Uses substance without health or social issues: NONE Meds/Allgy - Home Medications Home Medications: Ambulatory Orders Medication Instructions Recorded Confirmed Aspirin [Adult Aspirin Regimen] 81 mg PO DAILY 03/08/20 12/23/20 Metoprolol Tartrate 25 tab PO BID 03/08/20 12/23/20 Multivitamin [Multiple Vitamins] 1 tab PO DAILY 03/08/20 12/23/20 Omeprazole 20 mg PO DAILY 03/08/20 12/23/20 Sertraline HCl 100 mg PO DAILY 03/08/20 12/23/20 Tamsulosin [Flomax] 0.4 mg PO DAILY 03/08/20 12/23/20 oxyCODONE ER [OxyCONTIN] 10 mg PO QID 03/08/20 12/23/20 Clindamycin [Cleocin] 150 mg PO TID 7 Days #15 cap 12/20/20 12/23/20 Ipratropium/Albuterol [Combivent 2 puffs IH QID #1 inhaler 12/20/20 12/23/20 Respimat] LORazepam [Ativan] 1 mg PO Q6H PRN #20 tablet 12/20/20 12/23/20 dexAMETHasone [Decadron] 4 mg PO DAILY #5 tablet 12/20/20 12/23/20 Baclofen 20 mg PO 12/23/20 Benzocaine [Hurricaine] 1 spray TOP DAILY 12/23/20 12/23/20 Gabapentin [Neurontin] 900 mg PO QID 12/23/20 12/23/20 Senna [Senokot] 1 tab PO DAILY 12/23/20 12/23/20 - Allergies Allergies/Adverse Reactions: Allergies Allergy/AdvReac Type Severity Reaction Status Date / Time No Known Drug Allergies Allergy Verified 12/23/20 17:20 Review of Systems - Other Findings Other Findings: 10 pt ros as above otherwise unremarkable Exam - Vital Signs Reviewed Vital Signs: Yes Vital Signs: Vital Signs x48h Temp Pulse Resp BP Pulse Ox O2 Flow Rate 08/12/22 14:03 36.5 C 90 21 110/82 H 100 2 08/12/22 14:00 88 21 169/86 H 100 08/12/22 12:39 101 H 23 131/80 H 93 - Physical Exam General Appearance: positive: No acute distress, Lethargic, Other (frail, cachectic) Eyes Bilateral: positive: PERRL, EOMI, No scleral icterus ENT: positive: No signs of dehydration Neck: positive: No JVD, Trachea midline, Other (mild subcut air right neck) Respiratory: positive: No respiratory distress, Other (functional right chest tube) Cardiovascular: positive: Regular rate & rhythm Abdomen: positive: Non-tender, No distention Neurologic/Psychiatric: positive: Oriented x3 Conclusion/Plan - Problem List (1) Ground-level fall Conclusion/Plan: right rib fractures, pneumothorax. he has been very weak. he is frail, cachectic, little to no support at home. appears to have advanced metastatic cancer to liver. plan admit, medicine consult. - Lab Results Fish Bones: 08/12/22 12:38 08/12/22 12:38
[2022-08-12] MEDS ORDERED: ACETAMINOPHEN 325 MG TABLET PO PRN (14:22)
[2022-08-12] MEDS ORDERED: ONDANSETRON 4 MG/2 ML VIAL IVP PRN (14:22)
[2022-08-12] MEDS ORDERED: oxyCODONE 5 MG TABLET PO PRN ×2 (14:22)
[2022-08-12] MEDS ORDERED: ZOLPIDEM 5 MG TABLET PO PRN (14:22)
[2022-08-12] MEDS ORDERED: ONDANSETRON ODT 4 MG TABLET TL PRN (14:22)
[2022-08-12] MEDS ORDERED: GABAPENTIN 300 MG CAPSULE PO PRN (14:28)
--- NOTE | 2022-08-12 14:29 | CT Report ---
PROCEDURE: HEAD WO INDICATIONS: trauma TECHNIQUE: Noncontrast 4.5 mm thick angled axial sections acquired from the foramen magnum to the vertex. For r adiation dose reduction, the following was used: automated exposure control, adjustment of mA and/or kV according to patient size. COMPARISON: None. FINDINGS: Image quality: Excellent. CSF spaces: Basal cisterns are patent. No extra-axial fluid collections. Ventricles are normal in size and shape. Brain: No midline shift. No intracranial masses or hemorrhage. Reed-white matter interface is norm al. Skull and face: Calvarium and visualized facial bones are intact, without suspicious lesions. Sinuses: The right maxillary sinus is opacified. IMPRESSION: 1. No acute intracranial abnormality. 2. Opacification of the right maxillary sinus likely due to sinusitis. Reviewed by: Ryan Pat on 08/12/2022 1:27 PM [facility] Approved by: Ryan Pat on 08/12/2022 1:27 PM [facility] Station ID: [id number]
[2022-08-12] MEDS ORDERED: TAMSULOSIN 0.4 MG CAPSULE PO STA (14:30)
[2022-08-12] MEDS ORDERED: SENNA 8.6 MG TABLET PO STA (14:31)
[2022-08-12] MEDS ORDERED: LORazepam 1 MG TABLET PO PRN (14:32)
--- NOTE | 2022-08-12 14:34 | CT Report ---
PROCEDURE: CHEST W INDICATIONS: IV only, trauma CONTRAST:100ml omni 300 TECHNIQUE: After the administration of intravenous contrast, 1 mm axial images were acquired from the pulmonary apices through the posterior costophrenic angles. Axial 5 mm soft tissue kernel reconstructions were performed as well as 8 mm axial MIP and coronal and sagittal 5 mm reformations. For radiation dose reduction, the following was used: automated exposure control, adjustment of mA and/or kV according to patient size. COMPARISON: None. FINDINGS: Image quality: Excellent. Lungs and pleura: A chest tube has been placed in the right hemithorax. There is a persistent pneumot horax anteriorly of approximately 25%. Extensive subcutaneous emphysema over the right chest wall. Th e left lung is well aerated. There is right basilar atelectasis. Mediastinum: Heart size is normal. No pericardial effusion. The coronary arteries have atheroscler otic calcifications. No mediastinal or hilar adenopathy by size criteria. Thoracic aorta and central pulmonary arteries are normal in size. Esophagus is normal in caliber. No hiatal hernia. Bones and chest wall: No suspicious bony lesions. The right ninth and 10th ribs have minimally disp laced fractures No vertebral body compression fractures. No axillary or supraclavicular adenopathy b y size criteria. The thyroid is normal in size and there are no incidental findings.. Abdomen: See separately dictated CT of the abdomen. IMPRESSION: 1. Interval placement of a right-sided chest tube with a 25% residual pneumothorax on the right. 2. Fractures of the right ninth and 10th ribs. Reviewed by: Ryan Pat on 08/12/2022 1:33 PM [facility] Approved by: Ryan Pat on 08/12/2022 1:33 PM [facility] Station ID: [id number]
--- NOTE | 2022-08-12 14:55 | CT Report ---
PROCEDURE: CERVICAL SPINE WO INDICATIONS: trauma TECHNIQUE: Noncontrast 3 mm thick sections acquired from the skull base to the T4 level. Sagittal and coronal r eformats were then constructed. For radiation dose reduction, the following was used: automated exp osure control, adjustment of mA and/or kV according to patient size. COMPARISON: None. FINDINGS: Image quality: Excellent. Bones: No fractures or dislocations. Visualized superior ribs are intact. Soft tissues: Prevertebral soft tissues are normal in thickness. No paravertebral hematomas. No ap ical pneumothoraces. Subcutaneous emphysema from the right chest extends into the right neck. There is seen extending as far superiorly as the retropharyngeal space. IMPRESSION: No acute traumatic abnormality of the cervical spine. Reviewed by: Ryan Pat on 08/12/2022 1:53 PM [facility] Approved by: Ryan Pat on 08/12/2022 1:53 PM [facility] Station ID: [id number]
--- NOTE | 2022-08-12 15:13 | CT Report ---
PROCEDURE: ABDOMEN/PELVIS W INDICATIONS: IV only, trauma CONTRAST: 100ml omni 300 TECHNIQUE: After the administration of contrast, 5 mm thick sections acquired from the diaphragms to the symphys is. 5 mm thick coronal and sagittal reformats were acquired. For radiation dose reduction, the foll owing was used: automated exposure control, adjustment of mA and/or kV according to patient size. COMPARISON: None. FINDINGS: Image quality: Excellent. ABDOMEN: Lung bases: See separately dictated CT of the chest. Solid organs: The liver has innumerable hypodensities consistent with metastatic disease. The gallbladder is not distinctly identified. No acute traumatic abnormality of the liver. The spleen is normal. Both adrenal glands are normal with no nodules. The kidneys have no solid or cystic roberta s. The right kidney has a 5 cm parapelvic cyst versus pelviectasis. No dilatation of the ureter is se en. No stone along the course of the ureters. The bladder is intact. Peritoneum and bowel: Bowel loops demonstrate normal wall thickness and caliber. No free fluid or a ir. Nodes and vessels: No retroperitoneal or mesenteric adenopathy by size criteria. The aorta has a nor mal caliber. There are diffuse atherosclerotic calcifications. There is an aortobifemoral stent graft . Miscellaneous: No ventral hernias. PELVIS: Genitourinary: Bladder wall thickness is normal. Miscellaneous: No inguinal hernias or adenopathy. Bones: No suspicious bony lesions. No vertebral body compression fractures. IMPRESSION: 1. No acute traumatic abnormality of the abdomen or pelvis. 2. Extensive hepatic hypodensities consistent with metastatic disease or extensive primary neoplasm o f the liver. Reviewed by: Ryan Pat on 08/12/2022 2:12 PM [place] Approved by: Ryan Pat on 08/12/2022 2:12 PM [facility] Station ID: [id number]
[2022-08-12] MEDS: D5.45NS W/20 MEQ KCL 1,000 ML IV SCH (17:24)
[2022-08-12] MEDS: oxyCODONE ER 10 MG TABLET PO SCH ×2 (17:24→21:32)
[2022-08-12] MEDS: SODIUM CHLORIDE FLUSH 0.9% 10 ML SYRINGE IVP SCH (17:24)
[2022-08-12] MEDS: HYDROmorphone 0.5 MG/0.5 ML SYRINGE IVP PRN (20:07)
[2022-08-12] MEDS: IBUPROFEN 600 MG TABLET PO SCH (21:31)
[2022-08-12] MEDS: METOPROLOL TARTRATE 25 MG TABLET PO SCH (21:31)
[2022-08-12] MEDS: BACLOFEN 10 MG TABLET PO SCH (21:31)
[2022-08-13] MEDS: HYDROmorphone 0.5 MG/0.5 ML SYRINGE IVP PRN (00:35)
[2022-08-13] MEDS: SODIUM CHLORIDE FLUSH 0.9% 10 ML SYRINGE IVP SCH ×3 (00:35→17:15)
[2022-08-13] MEDS: hydrALAZINE INJ 20 MG/ML VIAL IVP PRN (01:50)
[2022-08-13] MEDS: PANTOPRAZOLE 40 MG TABLET PO SCH (06:16)
[2022-08-13] MEDS: D5.45NS W/20 MEQ KCL 1,000 ML IV SCH ×2 (06:16→18:57)
[2022-08-13] MEDS: BACLOFEN 10 MG TABLET PO SCH ×3 (06:16→21:33)
[2022-08-13] MEDS: IBUPROFEN 600 MG TABLET PO SCH ×3 (06:16→21:32)
[2022-08-13] MEDS: SERTRALINE 50 MG TABLET PO SCH (09:03)
[2022-08-13] MEDS: oxyCODONE ER 10 MG TABLET PO SCH ×4 (09:03→21:33)
[2022-08-13] MEDS: METOPROLOL TARTRATE 25 MG TABLET PO SCH ×2 (09:04→21:33)
[2022-08-13] MEDS: ENOXAPARIN 40 MG/0.4 ML SYRINGE SUBQ SCH (09:07)
--- NOTE | 2022-08-13 11:27 | PHARMACY PROGRESS NOTE ---
- Best Possible Medication History Admit Date and Time: 08/12/22 1422 Processed by: Pharmacy Medication History completed: Yes Patient Interview: Pt unable to participate Secondary Source(s): Prescription bottles, Pharmacy records, Insurance records Patient unable to participate in med rec interview. List updated using prescription bottles brought in with patient. According to insurance records, patient has been taking Suboxone but this medication was not included in patient's bag of medications. I called his [facility] pharmacy to confirm the dose. He filled the medication a couple days ago and the current prescription on file is for the buprenorphine-naloxone 8 mg-2 mg SL films (0.5 film SL TID). As the person ultimately responsible for medication therapy, providers are able to order a medication from an existing home medication list in [facility] via the "Reconcile Routine" prior to Confirmation of that medication by customer support associate. Such practice is discouraged except when the physician, in their clinical judgment, deems that a medical need exists for a medication without regard to previous use.
[2022-08-13] MEDS: polyethylene glycoL 3350 17 GM PACKET PO SCH (13:17)
--- NOTE | 2022-08-13 16:29 | PROVIDER PROGRESS NOTE ---
Subjective - Prog Note Date Prog Note Date: 08/13/22 - Subjective Subjective: very sleepy and difficult to arouse. falls back to sleep Objective - Vital Signs/Intake & Output Reviewed Vital Signs: Yes Vital Signs: Vital Signs x48h Temp Pulse Resp BP BP Pulse Ox O2 Flow Rate 08/13/22 15:36 36.7 C 79 16 161/72 H 97 1 08/13/22 13:00 95 16 96 1 08/13/22 09:15 36.7 C 91 12 160/77 H 97 1 08/13/22 09:04 155/76 H Intake & Output: Intake & Output 08/10/22 08/11/22 08/12/22 08/13/22 23:59 23:59 23:59 23:59 Intake Total 600 1133 Output Total 201 1019 Balance 399 114 - Objective General Appearance: positive: No acute distress, Lethargic Eyes Bilateral: positive: PERRL, EOMI Respiratory: positive: No respiratory distress Abdomen: positive: No distention Neurologic/Psychiatric: positive: Other (lethargic and not able to keep eyes open at time seen) - Lab Results Fish Bones: 08/12/22 12:38 08/12/22 12:38 Assessment/Plan - Problem List (1) Ground-level fall Impression: doing well in regards to breathing and pneumothorax/ chest tube he has advanced metastatic cancer to his liver. I was hoping to discuss this with him; however, he is too sleepy. will talk with him tomorrow. appreciated medical service help chest tube to water seal tomorrow. cxr 08/15/ and likely chest tube out 08/15
[2022-08-14] MEDS: IBUPROFEN 600 MG TABLET PO SCH (06:57)
[2022-08-14] MEDS: SODIUM CHLORIDE FLUSH 0.9% 10 ML SYRINGE IVP SCH ×4 (06:57→23:55)
[2022-08-14] MEDS: BACLOFEN 10 MG TABLET PO SCH (06:58)
[2022-08-14] MEDS: PANTOPRAZOLE 40 MG TABLET PO SCH (07:07)
[2022-08-14] MEDS: D5.45NS W/20 MEQ KCL 1,000 ML IV SCH ×2 (07:25→17:30)
[2022-08-14] MEDS ORDERED: MULTIVITAMIN W/MINERALS TABLET PO SCH (08:00)
[2022-08-14] MEDS: oxyCODONE ER 10 MG TABLET PO SCH (08:05)
[2022-08-14] MEDS: ENOXAPARIN 40 MG/0.4 ML SYRINGE SUBQ SCH (08:27)
--- NOTE | 2022-08-14 08:46 | PROVIDER PROGRESS NOTE ---
Subjective - Subjective Pt reports feeling: No change (awakens to voice. very weak. denies breathing problems) Objective - Vital Signs/Intake & Output Reviewed Vital Signs: Yes Vital Signs: Vital Signs x48h Temp Pulse Resp BP Pulse Ox O2 Flow Rate 08/14/22 07:50 36.4 C L 64 12 130/61 96 1 Intake & Output: Intake & Output 08/11/22 08/12/22 08/13/22 08/14/22 23:59 23:59 23:59 23:59 Intake Total 600 2641.75 587.5 Output Total 201 1166 130 Balance 399 1475.75 457.5 - Objective General Appearance: positive: No acute distress, Alert Eyes Bilateral: positive: PERRL, EOMI, No scleral icterus Neck: positive: No JVD, Trachea midline Respiratory: positive: No respiratory distress Abdomen: positive: Non-tender, No distention Neurologic/Psychiatric: positive: Oriented x3 - Lab Results Fish Bones: 08/12/22 12:38 08/12/22 12:38 Assessment/Plan - Problem List (1) Ground-level fall Impression: metastatic cancer and very weak, cachectic plan chest tube to water seal cxr tomorrow and likely chest tube out tomorrow. I briefly discussed that his cancer has spread to his liver and is making him weak. he is too lethargic to discuss in detail what he would like to do.
[2022-08-14 09:55] LABS: BASOPHILS % (AUTO) 0.3 %; EOSINOPHILS # (AUTO) 0.1 10^3/uL (0.0-0.7); EOSINOPHILS % (AUTO) 1.2 %; HCT - HEMATOCRIT 23.4 % (42.0-52.0); LYMPHOCYTES # (AUTO) 0.6 10^3/uL (1.5-3.5); LYMPHOCYTES % (AUTO) 4.6 %; MEAN CORPUSCULAR HGB CONC 29.5 g/dL (32.0-36.0); MEAN CORPUSCULAR VOLUME 84.8 fL (80.0-94.0); MEAN PLATELET VOLUME 10.6 fL (7.4-11.4); MONOCYTES # (AUTO) 0.9 10^3/uL (0.0-1.0); MONOCYTES % (AUTO) 7.2 %; NEUTROPHILS # (AUTO) 10.4 10^3/uL (1.5-6.6); NEUTROPHILS % (AUTO) 86.4 %; PLT - PLATELET COUNT 146 10^3/uL (130-450); RED BLOOD COUNT 2.76 10^6/uL (4.70-6.10); RED CELL DISTRIBUTION WIDTH 19.8 % (12.0-15.0); WHITE BLOOD COUNT 12.1 x10^3/uL (4.8-10.8)
[2022-08-14 10:05] LABS: HGB - HEMOGLOBIN 6.9 g/dL (14.0-18.0); SLIDE REVIEW? Indicated
[2022-08-14 10:07] LABS: ALBUMIN 2.2 g/dL (3.2-5.5); ALBUMIN/GLOBULIN RATIO 0.6 (1.0-2.2); BILIRUBIN,TOTAL 1.9 mg/dL (0.2-1.0); CALCIUM 8.4 mg/dL (8.5-10.3); POTASSIUM 4.8 mmol/L (3.5-5.0); TOTAL PROTEIN 5.9 g/dL (6.7-8.2)
[2022-08-14 10:16] LABS: PLATELET MORPHOLOGY NORMAL APPEARANCE (NORMAL)
[2022-08-14 10:17] LABS: PLATELET ESTIMATE, MANUAL NORMAL (130-450,000) (NORMAL)
[2022-08-14] MEDS: METOPROLOL TARTRATE 25 MG TABLET PO SCH (11:28)
[2022-08-14] MEDS: polyethylene glycoL 3350 17 GM PACKET PO SCH (11:29)
[2022-08-14] MEDS: SERTRALINE 50 MG TABLET PO SCH (11:29)
--- NOTE | 2022-08-14 14:42 | PROVIDER PROGRESS NOTE ---
Assessment/Plan - Problem List (1) AMS (altered mental status) Qualifiers: Altered mental status type: somnolence Qualified Code(s): R40.0 - Somnolence Assessment/Plan: This patient has been very weak and also eating poorly. Here he is ordered to get alot of narcotics prn and scheduled and prn Ambien. He is mostly somnolent today. RN did a clinical swallowing evaluation and he cannot swallow safely today. Plan: Stop the scheduled narcotics and prn Ambien which are probably causing hyper- somnolence Continue with as needed narcotic pain meds We will try to use his home dose of buprenorphine/naloxone translingual TID Change p.o. to IV meds Stop his Baclofen, Neurontin, oral Motrin, prn Ativan, Zoloft and Miralax Continue IV fluids and increase rate from 75 cc/hr tyo 83.33 cc/hr, since he is not adequately taking nutrition or hydration Continue with the pured diet, will order that he must be fed Depending on if the family wants him to be under Hospice care, we could start ordering comfort measures. RN gave me the message that the son is not coming in today and I have not heard from the son who lives in [place], [place] regarding what he and his brother want going forward. 2) Pneumothorax Management as per general surgery 3) Broken ribs Management as per general surgery Head and neck cancer with mets 4) Anemia Suspect this is anemia of chronic disease given his cancer with mets diagnosed Plan: No new work-up is planned as the patient is likely to go under Hospice care soon 5) Cancer, metastatic C79.9 As per Hx (6) Severe protein calorie malnutrition This patient has significant muscle wasting, loss of subcu fat, oral intake of less than 50% of recommended for 2 weeks or more, has been basically bedridden and has a BMI of 16.1 Plan: No new work-up is planned as the patient is likely to go under Hospice care soon - Current Meds Current Meds: Current Medications Generic Name Dose Route Start Last Admin Trade Name Freq PRN Reason Stop Dose Admin Baclofen 10 mg 08/12/22 22:00 08/14/22 06:58 Baclofen 10 Mg Tablet PO Not Given TID [facility] Enoxaparin Sodium 40 mg 08/13/22 09:00 08/14/22 08:27 Enoxaparin 40 Mg/0.4 Ml Syringe SUBQ 40 mg DAILY ANAID Administration Hydralazine HCl 10 mg 08/13/22 01:13 08/13/22 01:50 Hydralazine Inj 20 Mg/Ml Vial IVP 10 mg Q8H PRN Administration sys bp more than 170 Hydromorphone HCl 0.5 mg 08/12/22 14:22 08/13/22 00:35 Hydromorphone 0.5 Mg/0.5 Ml Syringe IVP 0.5 mg Q2H PRN Administration Pain 8 to 10 Potassium Chloride/Dextrose/Sod Cl 1,000 mls @ 75 mls/hr 08/12/22 15:00 08/14/22 07:25 D5.45ns W/20 Meq Kcl IV 75 mls/hr .[id number] ANAID Administration Ibuprofen 600 mg 08/12/22 22:00 08/14/22 06:57 Ibuprofen 600 Mg Tablet PO Not Given Q8HR ANAID Lorazepam 1 mg 08/12/22 14:32 08/13/22 01:49 Lorazepam 1 Mg Tablet PO 1 mg QID PRN Administration Anxiety Metoprolol Tartrate 25 mg 08/12/22 21:00 08/14/22 11:28 Metoprolol Tartrate 25 Mg Tablet PO Not Given BID ANAID Multivitamins/Minerals 1 tab 08/14/22 08:00 08/14/22 11:28 Multivitamin W/Minerals Tablet PO Not Given DAILYWM ANAID Ondansetron HCl 4 mg 08/12/22 14:22 08/12/22 20:07 Ondansetron 4 Mg/2 Ml Vial IVP 4 mg Q6HR PRN Administration Nausea / Vomiting Oxycodone HCl 10 mg 08/12/22 17:00 08/14/22 08:05 Oxycodone Er 10 Mg Tablet PO 10 mg QID ANAID Administration Pantoprazole Sodium 40 mg 08/13/22 07:00 08/14/22 07:07 Pantoprazole 40 Mg Tablet PO Not Given QDAC ANAID Polyethylene Glycol 17 gm 08/13/22 12:00 08/14/22 11:29 Polyethylene Glycol 3350 17 Gm Packet PO Not Given DAILY ANAID Sertraline HCl 100 mg 08/13/22 09:00 08/14/22 11:29 Sertraline 50 Mg Tablet PO Not Given DAILY ANAID Sodium Chloride 10 ml 08/12/22 17:00 08/14/22 11:29 Sodium Chloride Flush 0.9% 10 Ml Syringe IVP Not Given 0100,0900,1700 ANAID - Lab Result Fish Bone Diagrams: 08/14/22 09:41 08/14/22 09:41 Subjective - Subjective Patient Reports: Other (Awakens to touch or to name but falls right back to sleep) Nursing Reports: Other (Not awake enough to swallow pills or manipulate water or swallow meds) Objective Vital Signs: Vital Signs - 24 hr 08/13/22 08/13/22 08/13/22 15:36 21:33 22:25 Temperature 36.7 C Heart Rate [ 79 Brachial] Respiratory 16 Rate Blood Pressure 136/76 H Blood Pressure 161/72 H [Left Brachial artery] O2 Saturation 97 If not protocol 1 1 : Oxygen Flow, liters/minute 08/13/22 08/14/22 23:48 07:50 Temperature 36.4 C L 36.4 C L Heart Rate [ 62 64 Brachial] Respiratory 13 12 Rate Blood Pressure Blood Pressure 134/61 H 130/61 [Left Brachial artery] O2 Saturation 99 96 If not protocol 1 1 : Oxygen Flow, liters/minute Oxygen O2 Source Nasal cannula I&O (Last 24 Hrs): Intake and Output Totals x24h 08/12/22 08/13/22 08/14/22 23:59 23:59 23:59 Intake Total 600 2641.75 587.5 Output Total 201 1166 330 Balance 399 1475.75 257.5 General: Other (Somnolent, appears in no distress, is cachectic with temporal wasting and sunken eyes) HEENT: Other (Has temporal wasting and sunken eyes, dry mucosa, is edentulous) Neuro: Other (Lethargic and overall weak, sleepy) Cardiovascular: Regular rate, No murmurs Respiratory: No respiratory distress, Breath sounds nml Abdomen: Normal bowel sounds, Soft, No tenderness Extremities: No clubbing, No edema, No tenderness/swelling - Results Results: Laboratory Results WBC 12.1 x10^3/uL (4.8-10.8) H 08/14/22 09:41 RBC 2.76 10^6/uL (4.70-6.10) L 08/14/22 09:41 Hgb 6.9 g/dL (14.0-18.0) L* 08/14/22 09:41 Hct 23.4 % (42.0-52.0) L 08/14/22 09:41 MCV 84.8 fL (80.0-94.0) 08/14/22 09:41 MCH 25.0 pg (27.0-31.0) L 08/14/22 09:41 MCHC 29.5 g/dL (32.0-36.0) L 08/14/22 09:41 RDW 19.8 % (12.0-15.0) H 08/14/22 09:41 Plt Count 146 10^3/uL (130-450) 08/14/22 09:41 MPV 10.6 fL (7.4-11.4) 08/14/22 09:41 Neut # (Auto) 10.4 10^3/uL (1.5-6.6) H 08/14/22 09:41 Lymph # (Auto) 0.6 10^3/uL (1.5-3.5) L 08/14/22 09:41 [place] # (Auto) 0.9 10^3/uL (0.0-1.0) 08/14/22 09:41 Eos # (Auto) 0.1 10^3/uL (0.0-0.7) 08/14/22 09:41 Baso # (Auto) 0.0 10^3/uL (0.0-0.1) 08/14/22 09:41 Absolute Nucleated RBC 0.00 x10^3/uL 08/14/22 09:41 Nucleated RBC % 0.0 /100WBC 08/14/22 09:41 Manual Slide Review Indicated 08/14/22 09:41 Platelet Estimate NORMAL (130-450,000) (NORMAL) 08/14/22 09:41 Platelet Morphology NORMAL APPEARANCE (NORMAL) 08/14/22 09:41 RBC Morph Micro Appear 3+ HYPOCHROMASIA (NORMAL) 2+ ANISOCYTOSIS (NORMAL) 1+ SPHEROCYTES (NORMAL) 08/14/22 09:41 RBC Morph Micro Appear 3+ HYPOCHROMASIA (NORMAL) 2+ ANISOCYTOSIS (NORMAL) 1+ SPHEROCYTES (NORMAL) 08/14/22 09:41 RBC Morph Micro Appear 3+ HYPOCHROMASIA (NORMAL) 2+ ANISOCYTOSIS (NORMAL) 1+ SPHEROCYTES (NORMAL) 08/14/22 09:41 PT 14.9 secs (9.9-12.6) H 08/12/22 12:38 INR 1.3 (0.8-1.2) H 08/12/22 12:38 Sodium 143 mmol/L (135-145) 08/14/22 09:41 Potassium 4.8 mmol/L (3.5-5.0) 08/14/22 09:41 Chloride 107 mmol/L (101-111) 08/14/22 09:41 Carbon Dioxide 26 mmol/L (21-32) 08/14/22 09:41 Anion Gap 10.0 (6-13) 08/14/22 09:41 BUN 22 mg/dL (6-20) H 08/14/22 09:41 Creatinine 1.0 mg/dL (0.6-1.2) 08/14/22 09:41 Estimated GFR (MDRD) 74 (>89) L 08/14/22 09:41 Glucose 104 mg/dL (70-100) H 08/14/22 09:41 Calcium 8.4 mg/dL (8.5-10.3) L 08/14/22 09:41 Total Bilirubin 1.9 mg/dL (0.2-1.0) H 08/14/22 09:41 AST 139 IU/L (10-42) H 08/14/22 09:41 ALT 52 IU/L (10-60) 08/14/22 09:41 Alkaline Phosphatase 267 IU/L (42-121) H 08/14/22 09:41 Total Protein 5.9 g/dL (6.7-8.2) L 08/14/22 09:41 Albumin 2.2 g/dL (3.2-5.5) L 08/14/22 09:41 Globulin 3.7 g/dL (2.1-4.2) 08/14/22 09:41 Albumin/Globulin Ratio 0.6 (1.0-2.2) L 08/14/22 09:41 Blood Type O POSITIVE 08/12/22 12:46 Blood Type Recheck O POSITIVE 08/12/22 12:38 Antibody Screen NEGATIVE 08/12/22 12:46
[2022-08-14] MEDS: HYDROmorphone 0.5 MG/0.5 ML SYRINGE IVP PRN ×3 (19:24→23:55)
[2022-08-14] MEDS: BUPRENORPHINE/NALOXONE 8-2 MG TAB SL SCH (21:49)
[2022-08-15] MEDS: HYDROmorphone 0.5 MG/0.5 ML SYRINGE IVP PRN ×4 (06:00→16:08)
[2022-08-15] MEDS: SODIUM CHLORIDE FLUSH 0.9% 10 ML SYRINGE IVP PRN (06:01)
[2022-08-15] MEDS: D5.45NS W/20 MEQ KCL 1,000 ML IV SCH ×2 (06:01→18:44)
[2022-08-15] MEDS: BUPRENORPHINE/NALOXONE 8-2 MG TAB SL SCH ×4 (06:12→21:56)
[2022-08-15] MEDS: hydrALAZINE INJ 20 MG/ML VIAL IVP PRN (08:16)
[2022-08-15] MEDS: ACETAMINOPHEN 1,000 MG/100 ML 1,000 MG/100 ML BAG IV PRN ×2 (08:20→15:10)
[2022-08-15] MEDS: SODIUM CHLORIDE FLUSH 0.9% 10 ML SYRINGE IVP SCH ×2 (08:49→17:29)
[2022-08-15] MEDS: ENOXAPARIN 40 MG/0.4 ML SYRINGE SUBQ SCH (09:18)
--- NOTE | 2022-08-15 09:20 | XRAY Report ---
PROCEDURE: Chest 1 View X-Ray INDICATIONS: follow up ptx TECHNIQUE: One view of the chest was acquired. COMPARISON: 08/12/2022 chest radiograph FINDINGS: Surgical changes and devices: Right chest tube in place. Lungs and pleura: No significant right pneumothorax. Mild right basal opacities. Mediastinum: Mediastinal contours appear normal. Heart size is normal. Bones and chest wall: No suspicious osseous lesions. There is subcutaneous emphysema. IMPRESSION: Right chest tube in place. No significant right pneumothorax. Persistent mild right basal opacity. Co nsider future imaging surveillance to assess for resolution. Reviewed by: Spencer Lewis MD on 08/15/2022 9:19 AM PST Approved by: Spencer Lewis MD on 08/15/2022 9:19 AM PST Station ID: [id number]
--- NOTE | 2022-08-15 17:30 | PROCEDURE REPORT ---
Hospitalist Procedure Note - Procedure Note Procedure Note: right chest tube removed. well tolerated. dressing applied. dressing should remain for 5 to 7 days
--- NOTE | 2022-08-15 18:14 | PROVIDER PROGRESS NOTE ---
Assessment/Plan - Problem List (1) FTT (failure to thrive) in adult Assessment/Plan: This patient has been very weak and also eating poorly. He is more alert since being on Suboxone since yesterday. His oral intake is very poor and he is needing pain meds, too weak to stand on his own I stopped his Baclofen, Neurontin, oral Motrin, prn Ativan, Zoloft and Miralax, whenm he could not swallow yesterday. Today I met with pt's son Andrea and Andrea's (from [place]), as well and pt's caregiver and friend Tristen, and pt's giwryr-[id number] Lisa, at bedside and outside the room. We discussed his poor prognosis. Andrea has spoken to his step-brother Gerard, the pt's step son, who is currently working in [place]. Andrea and Gerard do agree to continue with DNR status for th pt. They are deciding if they want hospice and when they want to start comfort care and where the pt should go to have caregiving, while under hospice, likely for end-of-life. Andrea does not know where the DPOA paperwork is, somewhere in the patient's house and needs to find it. Plan: Continue IV fluids, since he is not adequately taking nutrition or hydration. Continue with the pured diet, and he must be fed Depending on where the family wants him to be, when under Hospice care, we could start ordering comfort measures. I asked [employer] Sony to talk with Andrea directly today, and put in a referral for hospice care for after discharge and called the hospice office myself with this request today 2) Pneumothorax Management as per general surgery 3) Broken ribs Management as per general surgery 4) Anemia Suspect this is anemia of chronic disease given his cancer with mets diagnosed Plan: No new work-up is planned as the patient is likely to go under Hospice care soon 5) Cancer, metastatic C79.9 As per Hx (6) Severe protein calorie malnutrition This patient has significant muscle wasting, loss of subq fat, oral intake of less than 50% of recommended for 2 weeks or more, has been basically bedridden and has a BMI of 16.1 Plan: No new work-up is planned as the patient is likely to go under Hospice care soon (7) AMS (altered mental status) Somnolence has resolved. It was likely from needing narcotics for paibn control. Now that the patient is on Suboxone he is awake and more alert and has pain is also controlled. - Current Meds Current Meds: Current Medications Generic Name Dose Route Start Last Admin Trade Name Freq PRN Reason Stop Dose Admin Buprenorphine HCl 0.5 tab 08/15/22 17:00 08/15/22 17:28 Buprenorphine/Naloxone 8-2 Mg Tab SL 0.5 tab TID ANAID Administration Enoxaparin Sodium 40 mg 08/13/22 09:00 08/15/22 09:18 Enoxaparin 40 Mg/0.4 Ml Syringe SUBQ 40 mg DAILY ANAID Administration Hydralazine HCl 10 mg 08/13/22 01:13 08/15/22 08:16 Hydralazine Inj 20 Mg/Ml Vial IVP 10 mg Q8H PRN Administration sys bp more than 170 Hydromorphone HCl 0.5 mg 08/12/22 14:22 08/15/22 16:08 Hydromorphone 0.5 Mg/0.5 Ml Syringe IVP 0.5 mg Q2H PRN Administration Pain 8 to 10 Potassium Chloride/Dextrose/Sod Cl 1,000 mls @ 83.33 mls/hr 08/14/22 14:45 08/15/22 06:01 D5.45ns W/20 Meq Kcl IV 83.33 mls/hr .Q12H1M ANAID Administration Acetaminophen 1,000 mg in 100 mls @ 400 mls/hr 08/14/22 14:48 08/15/22 15:25 Acetaminophen IV Infused Q6HR PRN Infusion Moderate Pain (Level 4-6) Ondansetron HCl 4 mg 08/12/22 14:22 08/12/22 20:07 Ondansetron 4 Mg/2 Ml Vial IVP 4 mg Q6HR PRN Administration Nausea / Vomiting Sodium Chloride 10 ml 08/12/22 14:22 08/15/22 06:01 Sodium Chloride Flush 0.9% 10 Ml Syringe IVP 10 ml PRN PRN Administration NEEDED PER PROVIDER ORDERS Sodium Chloride 10 ml 08/12/22 17:00 08/15/22 17:29 Sodium Chloride Flush 0.9% 10 Ml Syringe IVP Not Given 0100,0900,1700 ANAID - Lab Result Fish Bone Diagrams: 08/14/22 09:41 08/14/22 09:41 - Additional Planning My Orders: My Active Orders 08/15/22 Hospice Referral for Post-Discharge Services [CONS] Routine 08/15/22 17:00 Buprenorphine HCl/Naloxone HCl [Suboxone 8-2 mg Tab] 0.5 tab SL TID 08/16/22 05:00 BMP - BASIC METABOLIC PANEL [CHEM] DAILYLAB CBC - COMP BLD CT W/AUTO DIFF [HEME] DAILYLAB Subjective - Subjective Nursing Reports: Other (More alert, ate more and swallowed po pills. also more confused, was trying to get OOB alone) Objective Vital Signs: Vital Signs - 24 hr 08/14/22 08/15/22 08/15/22 21:30 00:05 08:00 Temperature 36.7 C 36.3 C L Heart Rate [ 100 103 H Brachial] Heart Rate [ Monitoring electrodes] Respiratory 14 14 Rate Blood Pressure Blood Pressure 157/76 H 153/76 H [Left Brachial artery] O2 Saturation 96 97 If not protocol 1 1 0.5 : Oxygen Flow, liters/minute 08/15/22 08/15/22 08/15/22 08:16 08:43 08:46 Temperature Heart Rate [ Brachial] Heart Rate [ Monitoring electrodes] Respiratory Rate Blood Pressure 174/79 H 151/73 H Blood Pressure [Left Brachial artery] O2 Saturation If not protocol 1 : Oxygen Flow, liters/minute 08/15/22 08/15/22 13:08 15:25 Temperature 36.6 C Heart Rate [ 116 H Brachial] Heart Rate [ 117 H Monitoring electrodes] Respiratory 25 H 16 Rate Blood Pressure Blood Pressure 168/80 H [Left Brachial artery] O2 Saturation 96 92 If not protocol : Oxygen Flow, liters/minute Oxygen O2 Source Room air I&O (Last 24 Hrs): Intake and Output Totals x24h 08/13/22 08/14/22 08/15/22 23:59 23:59 23:59 Intake Total 2641.75 1857.368 726.132 Output Total 9112 428 7340 Balance 1475.75 1467.368 -404.868 General: Mild distress (Confused, disoriented and in pain.), Other (Cachectic) HEENT: Other (Oral mucosa dry. Cachectic with temporal wasting.) Neck: Supple Neuro: Alert, Disoriented, Non Focal (Has generalized moderate to severe weakness) Cardiovascular: Regular rate Respiratory: No respiratory distress Abdomen: Soft Extremities: No clubbing, Other (Has skin tenting of the skin of his upper extremities) - Results Results: Laboratory Results WBC 12.1 x10^3/uL (4.8-10.8) H 08/14/22 09:41 RBC 2.76 10^6/uL (4.70-6.10) L 08/14/22 09:41 Hgb 6.9 g/dL (14.0-18.0) L* 08/14/22 09:41 Hct 23.4 % (42.0-52.0) L 08/14/22 09:41 MCV 84.8 fL (80.0-94.0) 08/14/22 09:41 MCH 25.0 pg (27.0-31.0) L 08/14/22 09:41 MCHC 29.5 g/dL (32.0-36.0) L 08/14/22 09:41 RDW 19.8 % (12.0-15.0) H 08/14/22 09:41 Plt Count 146 10^3/uL (130-450) 08/14/22 09:41 MPV 10.6 fL (7.4-11.4) 08/14/22 09:41 Neut # (Auto) 10.4 10^3/uL (1.5-6.6) H 08/14/22 09:41 Lymph # (Auto) 0.6 10^3/uL (1.5-3.5) L 08/14/22 09:41 [place] # (Auto) 0.9 10^3/uL (0.0-1.0) 08/14/22 09:41 Eos # (Auto) 0.1 10^3/uL (0.0-0.7) 08/14/22 09:41 Baso # (Auto) 0.0 10^3/uL (0.0-0.1) 08/14/22 09:41 Absolute Nucleated RBC 0.00 x10^3/uL 08/14/22 09:41 Nucleated RBC % 0.0 /100WBC 08/14/22 09:41 Manual Slide Review Indicated 08/14/22 09:41 Platelet Estimate NORMAL (130-450,000) (NORMAL) 08/14/22 09:41 Platelet Morphology NORMAL APPEARANCE (NORMAL) 08/14/22 09:41 RBC Morph Micro Appear 3+ HYPOCHROMASIA (NORMAL) 2+ ANISOCYTOSIS (NORMAL) 1+ SPHEROCYTES (NORMAL) 08/14/22 09:41 RBC Morph Micro Appear 3+ HYPOCHROMASIA (NORMAL) 2+ ANISOCYTOSIS (NORMAL) 1+ SPHEROCYTES (NORMAL) 08/14/22 09:41 RBC Morph Micro Appear 3+ HYPOCHROMASIA (NORMAL) 2+ ANISOCYTOSIS (NORMAL) 1+ SPHEROCYTES (NORMAL) 08/14/22 09:41 PT 14.9 secs (9.9-12.6) H 08/12/22 12:38 INR 1.3 (0.8-1.2) H 08/12/22 12:38 Sodium 143 mmol/L (135-145) 08/14/22 09:41 Potassium 4.8 mmol/L (3.5-5.0) 08/14/22 09:41 Chloride 107 mmol/L (101-111) 08/14/22 09:41 Carbon Dioxide 26 mmol/L (21-32) 08/14/22 09:41 Anion Gap 10.0 (6-13) 08/14/22 09:41 BUN 22 mg/dL (6-20) H 08/14/22 09:41 Creatinine 1.0 mg/dL (0.6-1.2) 08/14/22 09:41 Estimated GFR (MDRD) 74 (>89) L 08/14/22 09:41 Glucose 104 mg/dL (70-100) H 08/14/22 09:41 Calcium 8.4 mg/dL (8.5-10.3) L 08/14/22 09:41 Total Bilirubin 1.9 mg/dL (0.2-1.0) H 08/14/22 09:41 AST 139 IU/L (10-42) H 08/14/22 09:41 ALT 52 IU/L (10-60) 08/14/22 09:41 Alkaline Phosphatase 267 IU/L (42-121) H 08/14/22 09:41 Total Protein 5.9 g/dL (6.7-8.2) L 08/14/22 09:41 Albumin 2.2 g/dL (3.2-5.5) L 08/14/22 09:41 Globulin 3.7 g/dL (2.1-4.2) 08/14/22 09:41 Albumin/Globulin Ratio 0.6 (1.0-2.2) L 08/14/22 09:41 Blood Type O POSITIVE 08/12/22 12:46 Blood Type Recheck O POSITIVE 08/12/22 12:38 Antibody Screen NEGATIVE 08/12/22 12:46
[2022-08-16] MEDS: HYDROmorphone 0.5 MG/0.5 ML SYRINGE IVP PRN ×2 (01:16→17:52)
[2022-08-16] MEDS: SODIUM CHLORIDE FLUSH 0.9% 10 ML SYRINGE IVP SCH ×4 (01:16→21:59)
[2022-08-16] MEDS: BUPRENORPHINE/NALOXONE 8-2 MG TAB SL SCH ×3 (05:44→21:58)
[2022-08-16] MEDS: D5.45NS W/20 MEQ KCL 1,000 ML IV SCH ×2 (05:45→17:52)
[2022-08-16 06:25] LABS: BASOPHILS # (AUTO) 0.1 10^3/uL (0.0-0.1); BASOPHILS % (AUTO) 0.6 %; EOSINOPHILS # (AUTO) 0.1 10^3/uL (0.0-0.7); EOSINOPHILS % (AUTO) 0.3 %; HCT - HEMATOCRIT 24.2 % (42.0-52.0); HGB - HEMOGLOBIN 7.4 g/dL (14.0-18.0); LYMPHOCYTES # (AUTO) 0.7 10^3/uL (1.5-3.5); LYMPHOCYTES % (AUTO) 4.1 %; MEAN CORPUSCULAR HEMOGLOBIN 25.5 pg (27.0-31.0); MEAN CORPUSCULAR HGB CONC 30.6 g/dL (32.0-36.0); MEAN CORPUSCULAR VOLUME 83.4 fL (80.0-94.0); MEAN PLATELET VOLUME 10.8 fL (7.4-11.4); MONOCYTES # (AUTO) 1.2 10^3/uL (0.0-1.0); MONOCYTES % (AUTO) 7.2 %; NEUTROPHILS # (AUTO) 15.1 10^3/uL (1.5-6.6); NEUTROPHILS % (AUTO) 87.3 %; PLT - PLATELET COUNT 188 10^3/uL (130-450); RED CELL DISTRIBUTION WIDTH 20.4 % (12.0-15.0); WHITE BLOOD COUNT 17.2 x10^3/uL (4.8-10.8)
[2022-08-16 06:26] LABS: SLIDE REVIEW? Indicated
[2022-08-16 06:39] LABS: PLATELET ESTIMATE, MANUAL NORMAL (130-450,000) (NORMAL); PLATELET MORPHOLOGY NORMAL APPEARANCE (NORMAL); WBC MORPHOLOGY (MULTIPLE) NORMAL APPEARANCE (NORMAL)
[2022-08-16 06:46] LABS: CALCIUM 8.4 mg/dL (8.5-10.3); CREATININE 0.8 mg/dL (0.6-1.2); POTASSIUM 4.5 mmol/L (3.5-5.0)
[2022-08-16] MEDS: ENOXAPARIN 40 MG/0.4 ML SYRINGE SUBQ SCH (08:16)
[2022-08-16] MEDS: ACETAMINOPHEN 1,000 MG/100 ML 1,000 MG/100 ML BAG IV PRN ×2 (08:16→17:54)
--- NOTE | 2022-08-16 09:09 | XRAY Report ---
PROCEDURE: Chest 1 View X-Ray INDICATIONS: Shortness of breath, S/P chest tube removal after pneumothorax TECHNIQUE: One view of the chest was acquired. COMPARISON: Chest radiograph 08/15/2022 FINDINGS: Surgical changes and devices: Interval removal of the right chest tube. Lungs and pleura: Increased patchy opacity medial right lung base. Possible small right apical pneum othorax. Evaluation is difficult due to overlying soft tissue gas. Mediastinum: Mediastinal contours appear normal. Heart size is normal. Bones and chest wall: Pronounced soft tissue gas along the right chest wall and lower neck present a s before. IMPRESSION: Possible small right apical pneumothorax. Increased opacity medial right lung base, nonspecific, could represent aspiration, atelectasis, or pn eumonia. Reviewed by: Manpreet Escoto MD on 08/16/2022 9:07 AM PST Approved by: Manpreet Escoto MD on 08/16/2022 9:07 AM PST Station ID: [id number]
--- NOTE | 2022-08-16 09:15 | PROVIDER PROGRESS NOTE ---
Assessment/Plan - Problem List (1) Pneumonia Assessment/Plan: The patient is more tachypneic this morning. Labs were all reviewed. His white blood count increased from 12 on 08/14 to a WBC of 17 today. Pt is not on steroids to explain this increase. A chest x-ray was performed today and shows right-sided infiltrate which could be atelectasis, pneumonia or aspiration Plan: We will start empiric IV Zosyn 2) Pneumothorax The chest tube was removed yesterday by the general surgeon. Today a follow-up chest x-ray shows a possible small right-sided pneumothorax Plan: Further management as per general surgery 3) Broken ribs Management as per general surgery 4) FTT (failure to thrive) in adult Assessment/Plan: This patient has been very weak and also eating poorly. He is more alert since being on Suboxone since 08/14. His oral intake is very poor and he is needing pain meds, too weak to stand or get OOB on his own We stopped his Baclofen, Neurontin, oral Motrin, prn Ativan, Zoloft and Miralax, when he could not swallow 08/14. On 08/15 I met with pt's son Andrea and Andrea's (from [place]), as well and pt's caregiver and friend Tristen, and pt's [id number] Lisa, at bedside and outside the room. We discussed his poor prognosis. Andrea has spoken to his step-brother Gerard, the pt's step son, who is currently working in [place]. Andrea and Gerard do agree to continue with DNR status for the pt. They are deciding if they want hospice and when they want to start comfort care and where the pt should go to have caregiving, while under hospice, likely for end-of-life. Andrea does not know where the DPOA paperwork is, somewhere in the patient's house and needs to find it. Last night I drafted a letter to the bank, to allow the DPOA to access the patient's bank account, gave that to [employer]. [employer] started to meet with Andrea and . I have ordered a Hospice referral for care after [facility]. Plan: Continue IV fluids, since he is not adequately taking nutrition or hydration. Continue with the pured diet, and he must be fed Depending on where the family wants him to be, when under Hospice care, we could start ordering comfort measures. (5) Anemia Labs were all reviewed. Hgb was 6.9 on 08/14 and is 7.4 today. This is consistent with volume depletion. Suspect this is anemia of chronic disease given his cancer with mets diagnosed Plan: No new work-up is planned as the patient is likely to go under Hospice care soon (6) Cancer, metastatic C79.9 As per Hx (7) Severe protein calorie malnutrition This patient has significant muscle wasting, loss of subq fat, oral intake of less than 50% of recommended for 2 weeks or more, has been basically bedridden and has a BMI of 16.1 Plan: No new work-up is planned as the patient is likely to go under Hospice care soon (8) AMS (altered mental status) Resolved. It was likely from needing narcotics for paibn control. Now that the patient is on Suboxone he is awake and more alert and has pain is also controlled. - Current Meds Current Meds: Current Medications Generic Name Dose Route Start Last Admin Trade Name Freq PRN Reason Stop Dose Admin Buprenorphine HCl 0.5 tab 08/15/22 17:00 08/16/22 05:44 Buprenorphine/Naloxone 8-2 Mg Tab SL 0.5 tab TID ANAID Administration Enoxaparin Sodium 40 mg 08/13/22 09:00 08/16/22 08:16 Enoxaparin 40 Mg/0.4 Ml Syringe SUBQ 40 mg DAILY ANAID Administration Hydralazine HCl 10 mg 08/13/22 01:13 08/15/22 08:16 Hydralazine Inj 20 Mg/Ml Vial IVP 10 mg Q8H PRN Administration sys bp more than 170 Hydromorphone HCl 0.5 mg 08/12/22 14:22 08/16/22 01:16 Hydromorphone 0.5 Mg/0.5 Ml Syringe IVP 0.5 mg Q2H PRN Administration Pain 8 to 10 Potassium Chloride/Dextrose/Sod Cl 1,000 mls @ 83.33 mls/hr 08/14/22 14:45 08/16/22 05:45 D5.45ns W/20 Meq Kcl IV 83.33 mls/hr .Q12H1M ANAID Administration Acetaminophen 1,000 mg in 100 mls @ 400 mls/hr 08/14/22 14:48 08/16/22 08:16 Acetaminophen IV 400 mls/hr Q6HR PRN Administration Moderate Pain (Level 4-6) Ondansetron HCl 4 mg 08/12/22 14:22 08/12/22 20:07 Ondansetron 4 Mg/2 Ml Vial IVP 4 mg Q6HR PRN Administration Nausea / Vomiting Sodium Chloride 10 ml 08/12/22 14:22 08/15/22 06:01 Sodium Chloride Flush 0.9% 10 Ml Syringe IVP 10 ml PRN PRN Administration NEEDED PER PROVIDER ORDERS Sodium Chloride 10 ml 08/12/22 17:00 08/16/22 08:17 Sodium Chloride Flush 0.9% 10 Ml Syringe IVP Not Given 0100,0900,1700 ANAID - Lab Result Fish Bone Diagrams: 08/16/22 05:56 08/16/22 05:56 - Additional Planning My Orders: My Active Orders 08/15/22 17:00 Buprenorphine HCl/Naloxone HCl [Suboxone 8-2 mg Tab] 0.5 tab SL TID 08/16/22 10:00 Piperacillin/Tazobactam [Zosyn] 3.375 gm Sodium Chloride 0.9% Minibag [Normal Saline 0.9% Minibag] 100 ml IV Q6H Subjective - Subjective Patient Reports: Other (Lethargic, mostly sleeps, too weak to get OOB.) Objective Vital Signs: Vital Signs - 24 hr 08/15/22 08/15/22 08/16/22 13:08 15:25 01:25 Temperature 36.6 C 37.5 C Heart Rate [ 116 H 116 H Brachial] Heart Rate [ 117 H Monitoring electrodes] Respiratory 25 H 16 21 Rate Blood Pressure 168/80 H 152/83 H [Left Brachial artery] O2 Saturation 96 92 91 L If not protocol : Oxygen Flow, liters/minute 08/16/22 07:56 Temperature 36.5 C Heart Rate [ 112 H Brachial] Heart Rate [ Monitoring electrodes] Respiratory 18 Rate Blood Pressure 143/70 H [Left Brachial artery] O2 Saturation 92 If not protocol 1 : Oxygen Flow, liters/minute Oxygen O2 Source Nasal cannula I&O (Last 24 Hrs): Intake and Output Totals x24h 08/14/22 08/15/22 08/16/22 23:59 23:59 23:59 Intake Total 0372.001 3542.132 918.019 Output Total 390 1431 275 Balance 1467.368 295.132 643.019 General: Other (Lethargic, cachectic) HEENT: Mucous membr. moist/pink, Other (Edentulous) Neck: Supple Neuro: Other (Lethargic but moves all extremities spontaneously) Cardiovascular: Regular rate Respiratory: No respiratory distress Abdomen: Soft, No tenderness, Other (Scaphoid abdomen) Extremities: No clubbing, No edema - Results Results: Laboratory Results WBC 17.2 x10^3/uL (4.8-10.8) H 08/16/22 05:56 RBC 2.90 10^6/uL (4.70-6.10) L 08/16/22 05:56 Hgb 7.4 g/dL (14.0-18.0) L 08/16/22 05:56 Hct 24.2 % (42.0-52.0) L 08/16/22 05:56 MCV 83.4 fL (80.0-94.0) 08/16/22 05:56 MCH 25.5 pg (27.0-31.0) L 08/16/22 05:56 MCHC 30.6 g/dL (32.0-36.0) L 08/16/22 05:56 RDW 20.4 % (12.0-15.0) H 08/16/22 05:56 Plt Count 188 10^3/uL (130-450) 08/16/22 05:56 MPV 10.8 fL (7.4-11.4) 08/16/22 05:56 Neut # (Auto) 15.1 10^3/uL (1.5-6.6) H 08/16/22 05:56 Lymph # (Auto) 0.7 10^3/uL (1.5-3.5) L 08/16/22 05:56 [place] # (Auto) 1.2 10^3/uL (0.0-1.0) H 08/16/22 05:56 Eos # (Auto) 0.1 10^3/uL (0.0-0.7) 08/16/22 05:56 Baso # (Auto) 0.1 10^3/uL (0.0-0.1) 08/16/22 05:56 Absolute Nucleated RBC 0.00 x10^3/uL 08/16/22 05:56 Nucleated RBC % 0.0 /100WBC 08/16/22 05:56 Manual Slide Review Indicated 08/16/22 05:56 WBC Morphology NORMAL APPEARANCE (NORMAL) 08/16/22 05:56 Platelet Estimate NORMAL (130-450,000) (NORMAL) 08/16/22 05:56 Platelet Morphology NORMAL APPEARANCE (NORMAL) 08/16/22 05:56 RBC Morph Micro Appear 2+ ANISOCYTOSIS (NORMAL) 1+ SCHISTOCYTES (NORMAL) 2+ HYPOCHROMASIA (NORMAL) 08/16/22 05:56 RBC Morph Micro Appear 2+ ANISOCYTOSIS (NORMAL) 1+ SCHISTOCYTES (NORMAL) 2+ HYPOCHROMASIA (NORMAL) 08/16/22 05:56 RBC Morph Micro Appear 2+ ANISOCYTOSIS (NORMAL) 1+ SCHISTOCYTES (NORMAL) 2+ HYPOCHROMASIA (NORMAL) 08/16/22 05:56 PT 14.9 secs (9.9-12.6) H 08/12/22 12:38 INR 1.3 (0.8-1.2) H 08/12/22 12:38 Sodium 143 mmol/L (135-145) 08/16/22 05:56 Potassium 4.5 mmol/L (3.5-5.0) 08/16/22 05:56 Chloride 110 mmol/L (101-111) 08/16/22 05:56 Carbon Dioxide 24 mmol/L (21-32) 08/16/22 05:56 Anion Gap 9.0 (6-13) 08/16/22 05:56 BUN 14 mg/dL (6-20) 08/16/22 05:56 Creatinine 0.8 mg/dL (0.6-1.2) 08/16/22 05:56 Estimated GFR (MDRD) 96 (>89) 08/16/22 05:56 Glucose 106 mg/dL (70-100) H 08/16/22 05:56 Calcium 8.4 mg/dL (8.5-10.3) L 08/16/22 05:56 Total Bilirubin 1.9 mg/dL (0.2-1.0) H 08/14/22 09:41 AST 139 IU/L (10-42) H 08/14/22 09:41 ALT 52 IU/L (10-60) 08/14/22 09:41 Alkaline Phosphatase 267 IU/L (42-121) H 08/14/22 09:41 Total Protein 5.9 g/dL (6.7-8.2) L 08/14/22 09:41 Albumin 2.2 g/dL (3.2-5.5) L 08/14/22 09:41 Globulin 3.7 g/dL (2.1-4.2) 08/14/22 09:41 Albumin/Globulin Ratio 0.6 (1.0-2.2) L 08/14/22 09:41 Blood Type O POSITIVE 08/12/22 12:46 Blood Type Recheck O POSITIVE 08/12/22 12:38 Antibody Screen NEGATIVE 08/12/22 12:46
[2022-08-16] MEDS ORDERED: PIPERACILLIN/TAZOBACTAM 3.375 GM in SODIUM CHLORIDE 0.9% MINIBAG 100 ML IV ONE (11:00)
--- NOTE | 2022-08-16 12:50 | PROVIDER PROGRESS NOTE ---
Subjective - Prog Note Date Prog Note Date: 08/16/22 - Subjective Subjective: sleeping soundly Objective - Vital Signs/Intake & Output Reviewed Vital Signs: Yes Vital Signs: Vital Signs x48h Temp Pulse Resp BP Pulse Ox O2 Flow Rate 08/16/22 07:56 36.5 C 112 H 18 143/70 H 92 1 Intake & Output: Intake & Output 08/13/22 08/14/22 08/15/22 08/16/22 23:59 23:59 23:59 23:59 Intake Total 2641.75 9052.423 2204.132 1128.019 Output Total 7766 085 3454 275 Balance 1475.75 1467.368 295.132 853.019 - Objective General Appearance: positive: Mild distress Respiratory: positive: No respiratory distress - Lab Results Fish Bones: 08/16/22 05:56 08/16/22 05:56 Other Labs: Lab Results x24hrs 08/16/22 08/16/22 Range/Units 05:56 05:56 WBC 17.2 H (4.8-10.8) x10^3/uL RBC 2.90 L (4.70-6.10) 10^6/uL Hgb 7.4 L (14.0-18.0) g/dL Hct 24.2 L (42.0-52.0) % MCV 83.4 (80.0-94.0) fL MCH 25.5 L (27.0-31.0) pg MCHC 30.6 L (32.0-36.0) g/dL RDW 20.4 H (12.0-15.0) % Plt Count 188 (130-450) 10^3/uL MPV 10.8 (7.4-11.4) fL Neut # (Auto) 15.1 H (1.5-6.6) 10^3/uL Lymph # (Auto) 0.7 L (1.5-3.5) 10^3/uL [place] # (Auto) 1.2 H (0.0-1.0) 10^3/uL Eos # (Auto) 0.1 (0.0-0.7) 10^3/uL Baso # (Auto) 0.1 (0.0-0.1) 10^3/uL Absolute Nucleated RBC 0.00 x10^3/uL Nucleated RBC % 0.0 /100WBC Manual Slide Review Indicated WBC Morphology NORMAL APPEARANCE (NORMAL) Platelet Estimate NORMAL (130-450,000) (NORMAL) Platelet Morphology NORMAL APPEARANCE (NORMAL) RBC Morph Micro Appear 2+ HYPOCHROMASIA (NORMAL) Sodium 143 (135-145) mmol/L Potassium 4.5 (3.5-5.0) mmol/L Chloride 110 (101-111) mmol/L Carbon Dioxide 24 (21-32) mmol/L Anion Gap 9.0 (6-13) BUN 14 (6-20) mg/dL Creatinine 0.8 (0.6-1.2) mg/dL Estimated GFR (MDRD) 96 (>89) Glucose 106 H (70-100) mg/dL Calcium 8.4 L (8.5-10.3) mg/dL Assessment/Plan - Problem List (1) Ground-level fall Impression: chest tube out. breathing comfortably appreciate med service help
[2022-08-16] MEDS: PIPERACILLIN/TAZOBACTAM 3.375 GM in SODIUM CHLORIDE 0.9% MINIBAG 100 ML IV SCH ×2 (14:16→21:59)
[2022-08-17] MEDS: HYDROmorphone 0.5 MG/0.5 ML SYRINGE IVP PRN ×5 (02:23→22:33)
[2022-08-17] MEDS: SODIUM CHLORIDE FLUSH 0.9% 10 ML SYRINGE IVP PRN (02:24)
[2022-08-17] MEDS: D5.45NS W/20 MEQ KCL 1,000 ML IV SCH ×2 (05:47→17:23)
[2022-08-17] MEDS: BUPRENORPHINE/NALOXONE 8-2 MG TAB SL SCH ×3 (05:54→22:26)
[2022-08-17] MEDS: PIPERACILLIN/TAZOBACTAM 3.375 GM in SODIUM CHLORIDE 0.9% MINIBAG 100 ML IV SCH ×3 (05:54→22:26)
[2022-08-17 09:37] LABS: BASOPHILS # (AUTO) 0.1 10^3/uL (0.0-0.1); BASOPHILS % (AUTO) 0.6 %; EOSINOPHILS # (AUTO) 0.1 10^3/uL (0.0-0.7); EOSINOPHILS % (AUTO) 0.5 %; HCT - HEMATOCRIT 25.9 % (42.0-52.0); HGB - HEMOGLOBIN 7.5 g/dL (14.0-18.0); LYMPHOCYTES # (AUTO) 0.6 10^3/uL (1.5-3.5); MEAN CORPUSCULAR HEMOGLOBIN 24.7 pg (27.0-31.0); MEAN CORPUSCULAR VOLUME 85.2 fL (80.0-94.0); MEAN PLATELET VOLUME 10.5 fL (7.4-11.4); MONOCYTES # (AUTO) 1.1 10^3/uL (0.0-1.0); MONOCYTES % (AUTO) 5.6 %; NEUTROPHILS # (AUTO) 17.9 10^3/uL (1.5-6.6); NEUTROPHILS % (AUTO) 89.6 %; PLT - PLATELET COUNT 168 10^3/uL (130-450); RED BLOOD COUNT 3.04 10^6/uL (4.70-6.10); RED CELL DISTRIBUTION WIDTH 20.1 % (12.0-15.0)
[2022-08-17 09:39] LABS: SLIDE REVIEW? Indicated
[2022-08-17 09:48] LABS: CALCIUM 8.3 mg/dL (8.5-10.3); CREATININE 0.9 mg/dL (0.6-1.2); POTASSIUM 4.4 mmol/L (3.5-5.0)
[2022-08-17 10:03] LABS: PLATELET ESTIMATE, MANUAL NORMAL (130-450,000) (NORMAL); PLATELET MORPHOLOGY NORMAL APPEARANCE (NORMAL); WBC MORPHOLOGY (MULTIPLE) NORMAL APPEARANCE (NORMAL)
[2022-08-17] MEDS: SODIUM CHLORIDE FLUSH 0.9% 10 ML SYRINGE IVP SCH ×3 (13:02→22:27)
[2022-08-17] MEDS: ENOXAPARIN 40 MG/0.4 ML SYRINGE SUBQ SCH (13:03)
[2022-08-17] MEDS: polyethylene glycoL 3350 17 GM PACKET PO SCH (14:13)
--- NOTE | 2022-08-17 16:16 | PROVIDER PROGRESS NOTE ---
Assessment/Plan - Problem List (1) Pneumonia Assessment/Plan: Improved since yesterday The patient was more tachypneic yesterday 08/16. Labs were all reviewed. His white blood count had increased from 12 on 08/14 to a WBC of 17 on 08/16. Pt was not on steroids to explain this increase. A chest x-ray was performed 08/16 and showed right-sided infiltrate which could be atelectasis, pneumonia or aspiration. I ordered empiric IV Zosyn, which started yesterday 08/16. Plan: Continue an empiric 5-7 day course of antibiotics, will use iv Zosyn, since it helped his clinical status 2) Pneumothorax The chest tube was removed 08/15 by the general surgeon. On 08/16 a follow-up chest x-ray showed a possible small right-sided pneumothorax Plan: Further management as per general surgery 3) Broken ribs Management as per general surgery 4) FTT (failure to thrive) in adult Assessment/Plan: This patient has been very weak and also eating poorly. He is more alert since being on Suboxone since 08/14. His oral intake is very poor and he is needing pain meds, too weak to stand or get OOB on his own We stopped his Baclofen, Neurontin, oral Motrin, prn Ativan, Zoloft and Miralax, when he could not swallow 08/14. On 08/15 I met with pt's son Andrea and Andrea's (from [place]), as well and pt's caregiver and friend Tristen, and pt's [id number] Lisa, at bedside and outside the room. We discussed his poor prognosis. Andrea has spoken to his step-brother Gerard, the pt's step son, who is currently working in [place]. Andrea and Gerard do agree to continue with DNR status for the pt. They were deciding when they want Hospice and when they want to start comfort care and where the pt should go to have caregiving, while under Hospice, likely for end-of-life. Andrea did not know where the DPOA paperwork is, somewhere in the patient's house and needed to find it. I have drafted a letter to the bank, to allow the DPOA to access the patient's bank account, gave that to [employer]. [employer] started to meet with Andrea and . Andrea has found the DPOA form, but it is unsigned. I have ordered a Hospice referral for care after Dch. Plan: Continue IV fluids, since he is not adequately taking nutrition or hydration. Continue with the pured diet, and he must be fed Depending on where the family wants him to be, when under Hospice care, we could start ordering comfort measures. Today the patient is alert and oriented x4. I discussed the incomplete DPOA for m with the patient and he is willing to complete the paperwork. The son Andrea is arriving today with a Notary, to have the patient sign the DPOA form. Since the patient has improved clinically and is communicative and not in pain, our Bit Grinder to meet with the patient today to determine his wishes regarding location for discharge, and needing complete care. (5) Anemia Labs were all reviewed. Hgb was 6.9 on 08/14 and has been stable due to some dehydration Suspect this is anemia of chronic disease given his cancer with mets diagnosed Plan: No new work-up is planned as the patient is likely to go under Hospice care soon (6) Cancer, metastatic C79.9 As per Hx (7) Severe protein calorie malnutrition This patient has significant muscle wasting, loss of subq fat, oral intake of less than 50% of recommended for 2 weeks or more, has been basically bedridden and has a BMI of 16.1 Plan: No new work-up is planned as the patient is likely to go under Hospice care soon (8) AMS (altered mental status) Resolved. It was likely from needing narcotics for pain control. Now that the patient is on Suboxone he is awake and alert and his pain is also well controlled. - Current Meds Current Meds: Current Medications Generic Name Dose Route Start Last Admin Trade Name Freq PRN Reason Stop Dose Admin Buprenorphine HCl 0.5 tab 08/15/22 17:00 08/17/22 14:21 Buprenorphine/Naloxone 8-2 Mg Tab SL 0.5 tab TID ANAID Administration Enoxaparin Sodium 40 mg 08/13/22 09:00 08/17/22 13:03 Enoxaparin 40 Mg/0.4 Ml Syringe SUBQ 40 mg DAILY ANAID Administration Hydralazine HCl 10 mg 08/13/22 01:13 08/15/22 08:16 Hydralazine Inj 20 Mg/Ml Vial IVP 10 mg Q8H PRN Administration sys bp more than 170 Hydromorphone HCl 0.5 mg 08/12/22 14:22 08/17/22 12:18 Hydromorphone 0.5 Mg/0.5 Ml Syringe IVP 0.5 mg Q2H PRN Administration Pain 8 to 10 Potassium Chloride/Dextrose/Sod Cl 1,000 mls @ 83.33 mls/hr 08/14/22 14:45 08/17/22 05:47 D5.45ns W/20 Meq Kcl IV 83.33 mls/hr .Q12H1M ANAID Administration Acetaminophen 1,000 mg in 100 mls @ 400 mls/hr 08/14/22 14:48 08/16/22 18:09 Acetaminophen IV Infused Q6HR PRN Infusion Moderate Pain (Level 4-6) Piperacillin Sod/Tazobactam 100 mls @ 25 mls/hr 08/16/22 14:00 08/17/22 14:23 Sod 3.375 gm/ Sodium Chloride IV 25 mls/hr Q8H ANAID Administration Ondansetron HCl 4 mg 08/12/22 14:22 08/12/22 20:07 Ondansetron 4 Mg/2 Ml Vial IVP 4 mg Q6HR PRN Administration Nausea / Vomiting Polyethylene Glycol 17 gm 08/17/22 09:00 08/17/22 14:13 Polyethylene Glycol 3350 17 Gm Packet PO Not Given DAILY ANAID Sodium Chloride 10 ml 08/12/22 14:22 08/17/22 02:24 Sodium Chloride Flush 0.9% 10 Ml Syringe IVP 10 ml PRN PRN Administration NEEDED PER PROVIDER ORDERS Sodium Chloride 10 ml 08/12/22 17:00 08/17/22 13:02 Sodium Chloride Flush 0.9% 10 Ml Syringe IVP Not Given 0100,0900,1700 ANAID - Lab Result Fish Bone Diagrams: 08/17/22 09:32 08/17/22 09:32 - Additional Planning My Orders: My Active Orders 08/17/22 09:00 polyethylene glycoL 3350 [Miralax] 17 gm PO DAILY 08/18/22 05:00 BMP - BASIC METABOLIC PANEL [CHEM] DAILYLAB CBC - COMP BLD CT W/AUTO DIFF [HEME] DAILYLAB MAGNESIUM [CHEM] DAILYLAB Subjective - Subjective Patient Reports: Resting Comfortably, No Complaints, Other (No appetite, only takes sips of water and of Ensure) Objective Vital Signs: Vital Signs - 24 hr 08/16/22 08/17/22 08/17/22 18:41 00:00 08:00 Temperature 36.7 C 36.8 C Heart Rate [ 95 101 H Brachial] Respiratory 16 16 Rate Blood Pressure 148/75 H 150/67 H [Left Brachial artery] O2 Saturation 93 93 93 If not protocol 0.5 1 1 : Oxygen Flow, liters/minute Oxygen O2 Source Nasal cannula I&O (Last 24 Hrs): Intake and Output Totals x24h 08/15/22 08/16/22 08/17/22 23:59 23:59 23:59 Intake Total 3551.063 9202.019 1368.016 Output Total 1431 825 425 Balance 364.106 8033.019 943.016 General: Alert, Oriented x3, Other (Cachectic, with sunken eyes, edentulous, and has sunken cheeks) HEENT: Atraumatic, EOMI Neck: Supple Neuro: Alert, Non Focal Cardiovascular: Regular rate Respiratory: No respiratory distress Abdomen: Soft, No tenderness Extremities: No clubbing, No edema, Other ((+) skin tenting) - Results Results: Laboratory Results WBC 20.0 x10^3/uL (4.8-10.8) H 08/17/22 09:32 RBC 3.04 10^6/uL (4.70-6.10) L 08/17/22 09:32 Hgb 7.5 g/dL (14.0-18.0) L 08/17/22 09:32 Hct 25.9 % (42.0-52.0) L 08/17/22 09:32 MCV 85.2 fL (80.0-94.0) 08/17/22 09:32 MCH 24.7 pg (27.0-31.0) L 08/17/22 09:32 MCHC 29.0 g/dL (32.0-36.0) L 08/17/22 09:32 RDW 20.1 % (12.0-15.0) H 08/17/22 09:32 Plt Count 168 10^3/uL (130-450) 08/17/22 09:32 MPV 10.5 fL (7.4-11.4) 08/17/22 09:32 Neut # (Auto) 17.9 10^3/uL (1.5-6.6) H 08/17/22 09:32 Lymph # (Auto) 0.6 10^3/uL (1.5-3.5) L 08/17/22 09:32 [place] # (Auto) 1.1 10^3/uL (0.0-1.0) H 08/17/22 09:32 Eos # (Auto) 0.1 10^3/uL (0.0-0.7) 08/17/22 09: Baso # (Auto) 0.1 10^3/uL (0.0-0.1) 08/17/22 09:32 Absolute Nucleated RBC 0.00 x10^3/uL 08/17/22 09: Nucleated RBC % 0.0 /100WBC 08/17/22 09:32 Manual Slide Review Indicated 08/17/22 09:32 WBC Morphology NORMAL APPEARANCE (NORMAL) 08/17/22 09: Platelet Estimate NORMAL (130-450,000) (NORMAL) 08/17/22 09:32 Platelet Morphology NORMAL APPEARANCE (NORMAL) 08/17/22 09:32 RBC Morph Micro Appear 1+ ANISOCYTOSIS (NORMAL) 1+ HYPOCHROMASIA (NORMAL) 2+ SCHISTOCYTES (NORMAL) 1+ POIKILOCYTOSIS (NORMAL) 08/17/22 09:32 RBC Morph Micro Appear 1+ ANISOCYTOSIS (NORMAL) 1+ HYPOCHROMASIA (NORMAL) 2+ SCHISTOCYTES (NORMAL) 1+ POIKILOCYTOSIS (NORMAL) 08/17/22 09:32 RBC Morph Micro Appear 1+ ANISOCYTOSIS (NORMAL) 1+ HYPOCHROMASIA (NORMAL) 2+ SCHISTOCYTES (NORMAL) 1+ POIKILOCYTOSIS (NORMAL) 08/17/22 09:32 RBC Morph Micro Appear 1+ ANISOCYTOSIS (NORMAL) 1+ HYPOCHROMASIA (NORMAL) 2+ SCHISTOCYTES (NORMAL) 1+ POIKILOCYTOSIS (NORMAL) 08/17/22 09:32 PT 14.9 secs (9.9-12.6) H 08/12/22 12:38 INR 1.3 (0.8-1.2) H 08/12/22 12:38 Sodium 142 mmol/L (135-145) 08/17/22 09:32 Potassium 4.4 mmol/L (3.5-5.0) 08/17/22 09:32 Chloride 110 mmol/L (101-111) 08/17/22 09:32 Carbon Dioxide 22 mmol/L (21-32) 08/17/22 09:32 Anion Gap 10.0 (6-13) 08/17/22 09:32 BUN 15 mg/dL (6-20) 08/17/22 09:32 Creatinine 0.9 mg/dL (0.6-1.2) 08/17/22 09:32 Estimated GFR (MDRD) 84 (>89) L 08/17/22 09:32 Glucose 128 mg/dL (70-100) H 08/17/22 09:32 Calcium 8.3 mg/dL (8.5-10.3) L 08/17/22 09:32 Total Bilirubin 1.9 mg/dL (0.2-1.0) H 08/14/22 09:41 AST 139 IU/L (10-42) H 08/14/22 09:41 ALT 52 IU/L (10-60) 08/14/22 09:41 Alkaline Phosphatase 267 IU/L (42-121) H 08/14/22 09:41 Total Protein 5.9 g/dL (6.7-8.2) L 08/14/22 09:41 Albumin 2.2 g/dL (3.2-5.5) L 08/14/22 09:41 Globulin 3.7 g/dL (2.1-4.2) 08/14/22 09:41 Albumin/Globulin Ratio 0.6 (1.0-2.2) L 08/14/22 09:41 Blood Type O POSITIVE 08/12/22 12:46 Blood Type Recheck O POSITIVE 08/12/22 12:38 Antibody Screen NEGATIVE 08/12/22 12:46
--- NOTE | 2022-08-17 17:40 | PROVIDER PROGRESS NOTE ---
Subjective - Prog Note Date Prog Note Date: 08/17/22 - Subjective Pt reports feeling: No change Objective - Vital Signs/Intake & Output Reviewed Vital Signs: Yes Intake & Output: Intake & Output 08/14/22 08/15/22 08/16/22 08/17/22 23:59 23:59 23:59 23:59 Intake Total 5973.646 0735.132 2553.019 2334.644 Output Total 390 1431 825 425 Balance 1467.368 599.532 2400.019 1909.644 - Objective General Appearance: positive: Alert Respiratory: positive: No respiratory distress - Lab Results Fish Bones: 08/17/22 09:32 08/17/22 09:32 Other Labs: Lab Results x24hrs 08/17/22 08/17/22 Range/Units 09:32 09:32 WBC 20.0 H (4.8-10.8) x10^3/uL RBC 3.04 L (4.70-6.10) 10^6/uL Hgb 7.5 L (14.0-18.0) g/dL Hct 25.9 L (42.0-52.0) % MCV 85.2 (80.0-94.0) fL MCH 24.7 L (27.0-31.0) pg MCHC 29.0 L (32.0-36.0) g/dL RDW 20.1 H (12.0-15.0) % Plt Count 168 (130-450) 10^3/uL MPV 10.5 (7.4-11.4) fL Neut # (Auto) 17.9 H (1.5-6.6) 10^3/uL Lymph # (Auto) 0.6 L (1.5-3.5) 10^3/uL [place] # (Auto) 1.1 H (0.0-1.0) 10^3/uL Eos # (Auto) 0.1 (0.0-0.7) 10^3/uL Baso # (Auto) 0.1 (0.0-0.1) 10^3/uL Absolute Nucleated RBC 0.00 x10^3/uL Nucleated RBC % 0.0 /100WBC Manual Slide Review Indicated WBC Morphology NORMAL APPEARANCE (NORMAL) Platelet Estimate NORMAL (130-450,000) (NORMAL) Platelet Morphology NORMAL APPEARANCE (NORMAL) RBC Morph Micro Appear 1+ POIKILOCYTOSIS (NORMAL) Sodium 142 (135-145) mmol/L Potassium 4.4 (3.5-5.0) mmol/L Chloride 110 (101-111) mmol/L Carbon Dioxide 22 (21-32) mmol/L Anion Gap 10.0 (6-13) BUN 15 (6-20) mg/dL Creatinine 0.9 (0.6-1.2) mg/dL Estimated GFR (MDRD) 84 L (>89) Glucose 128 H (70-100) mg/dL Calcium 8.3 L (8.5-10.3) mg/dL Assessment/Plan - Problem List (1) Ground-level fall Impression: ptx resolved
[2022-08-18 04:51] LABS: BASOPHILS # (AUTO) 0.1 10^3/uL (0.0-0.1); BASOPHILS % (AUTO) 0.5 %; EOSINOPHILS # (AUTO) 0.4 10^3/uL (0.0-0.7); EOSINOPHILS % (AUTO) 2.3 %; HCT - HEMATOCRIT 24.5 % (42.0-52.0); HGB - HEMOGLOBIN 7.3 g/dL (14.0-18.0); LYMPHOCYTES # (AUTO) 0.8 10^3/uL (1.5-3.5); LYMPHOCYTES % (AUTO) 4.7 %; MEAN CORPUSCULAR HEMOGLOBIN 24.8 pg (27.0-31.0); MEAN CORPUSCULAR HGB CONC 29.8 g/dL (32.0-36.0); MEAN CORPUSCULAR VOLUME 83.3 fL (80.0-94.0); MEAN PLATELET VOLUME 10.5 fL (7.4-11.4); MONOCYTES # (AUTO) 1.2 10^3/uL (0.0-1.0); MONOCYTES % (AUTO) 6.5 %; NEUTROPHILS # (AUTO) 15.1 10^3/uL (1.5-6.6); NEUTROPHILS % (AUTO) 84.8 %; PLT - PLATELET COUNT 164 10^3/uL (130-450); RED BLOOD COUNT 2.94 10^6/uL (4.70-6.10); RED CELL DISTRIBUTION WIDTH 20.1 % (12.0-15.0); WHITE BLOOD COUNT 17.8 x10^3/uL (4.8-10.8)
[2022-08-18 04:54] LABS: SLIDE REVIEW? Indicated
[2022-08-18 04:57] LABS: CALCIUM 8.3 mg/dL (8.5-10.3); CREATININE 0.8 mg/dL (0.6-1.2); MAGNESIUM 1.5 mg/dL (1.7-2.8); POTASSIUM 4.3 mmol/L (3.5-5.0)
[2022-08-18] MEDS: PIPERACILLIN/TAZOBACTAM 3.375 GM in SODIUM CHLORIDE 0.9% MINIBAG 100 ML IV SCH ×3 (05:28→22:08)
[2022-08-18] MEDS: D5.45NS W/20 MEQ KCL 1,000 ML IV SCH ×2 (05:28→17:32)
[2022-08-18 05:30] LABS: PLATELET ESTIMATE, MANUAL NORMAL (130-450,000) (NORMAL)
[2022-08-18] MEDS: BUPRENORPHINE/NALOXONE 8-2 MG TAB SL SCH ×3 (05:30→22:09)
[2022-08-18] MEDS: polyethylene glycoL 3350 17 GM PACKET PO SCH (09:57)
[2022-08-18] MEDS: ENOXAPARIN 40 MG/0.4 ML SYRINGE SUBQ SCH (09:57)
[2022-08-18] MEDS: SODIUM CHLORIDE FLUSH 0.9% 10 ML SYRINGE IVP SCH ×2 (09:58→22:16)
--- NOTE | 2022-08-18 18:59 | PROVIDER PROGRESS NOTE ---
Assessment/Plan - Problem List (1) Pneumonia Assessment/Plan: Improved since yesterday The patient was more tachypneic on 08/16. Labs were all reviewed and his white blood count had increased from 12 on 08/14 to a WBC of 17 on 08/16. Pt was not on steroids to explain this increase. A chest x-ray was performed 08/16 and showed right-sided infiltrate which could be atelectasis, pneumonia or aspiration. I ordered empiric IV Zosyn, which started 08/16. No tachypnea since then Plan: Continue an empiric 5 day course of antibiotics, will use iv Zosyn, since it helped his clinical status 2) Pneumothorax The chest tube was removed 08/15 by the general surgeon. On 08/16 a follow-up chest x-ray showed a possible small right-sided pneumothorax Plan: Further management as per general surgery 3) Broken ribs Management as per general surgery 4) FTT (failure to thrive) in adult Assessment/Plan: This patient has been very weak and also eating poorly. He is more alert since being on Suboxone since 08/14. His oral intake is very poor and he is needing pain meds, too weak to stand or get OOB on his own, he is now bedridden. No PT was ordered. We stopped his Baclofen, Neurontin, oral Motrin, prn Ativan, Zoloft and Miralax, when he could not swallow 08/14. On 08/15 I met with pt's son Andrea and Andrea's (from [place]), as well and pt's caregiver and friend Tristen, and pt's [id number] Lisa, at bedside. We discussed his poor prognosis. Andrea has spoken to his step-brother Gerard, the pt's step-son, who is currently working in [place]. Andrea and Gerard did agree to continue with DNR status for the pt. They wanted Hospice involved but did not want to start comfort care. SW started to meet with Andrea and . Andrea found the DPOA form, but it is unsigned. The patient was asking why Andrea is planning his end-of-life. Andrea's asked me to have a discussion with the pt about his prognosis, which I did (see ACP note) and we discussed if he wants Comfort Care, which he did not. He wants full care. I have ordered a Hospice referral for care after Dch. Plan: Continue IV fluids, since he is not adequately taking nutrition or hydration. Continue with the pured diet. Today the patient is alert and oriented x4. I discussed the incomplete DPOA form with the patient and he is willing to complete the paperwork. The son Andrea is arriving today with a Notary, to have the patient sign the DPOA form. Since the patient has improved clinically and is communicative and not in pain, our Wrecking Supervisor to meet with the patient today to determine his wishes regarding location for discharge, and needing complete care. (5) Anemia Labs were all reviewed. Hgb was 6.9 on 08/14 and has been stable due to some dehydration Suspect this is anemia of chronic disease given his cancer with mets diagnosed Plan: No new work-up is planned as the patient is likely to go under Hospice care soon (6) Cancer, metastatic C79.9 As per Hx. See separate ACP note (7) Severe protein calorie malnutrition This patient has significant muscle wasting, loss of subq fat, oral intake of less than 50% of recommended for 2 weeks or more, has been basically bedridden and has a BMI of 16.1 Plan: No new work-up is planned as the patient is likely to go under Hospice care soon (8) AMS (altered mental status) Resolved. It was likely from needing narcotics for pain control. Now that the patient is on Suboxone he is awake and alert and his pain is also well controlled. - Current Meds Current Meds: Current Medications Generic Name Dose Route Start Last Admin Trade Name Freq PRN Reason Stop Dose Admin Buprenorphine HCl 0.5 tab 08/15/22 17:00 08/18/22 14:04 Buprenorphine/Naloxone 8-2 Mg Tab SL 0.5 tab TID ANAID Administration Enoxaparin Sodium 40 mg 08/13/22 09:00 08/18/22 09:57 Enoxaparin 40 Mg/0.4 Ml Syringe SUBQ 40 mg DAILY ANAID Administration Hydralazine HCl 10 mg 08/13/22 01:13 08/15/22 08:16 Hydralazine Inj 20 Mg/Ml Vial IVP 10 mg Q8H PRN Administration sys bp more than 170 Hydromorphone HCl 0.5 mg 08/12/22 14:22 08/17/22 22:33 Hydromorphone 0.5 Mg/0.5 Ml Syringe IVP 0.5 mg Q2H PRN Administration Pain 8 to 10 Potassium Chloride/Dextrose/Sod Cl 1,000 mls @ 83.33 mls/hr 08/14/22 14:45 08/18/22 17:32 D5.45ns W/20 Meq Kcl IV 83.33 mls/hr .Q12H1M ANAID Administration Acetaminophen 1,000 mg in 100 mls @ 400 mls/hr 08/14/22 14:48 08/16/22 18:09 Acetaminophen IV Infused Q6HR PRN Infusion Moderate Pain (Level 4-6) Piperacillin Sod/Tazobactam 100 mls @ 25 mls/hr 08/16/22 14:00 08/18/22 18:11 Sod 3.375 gm/ Sodium Chloride IV Infused Q8H ANAID Infusion Ondansetron HCl 4 mg 08/12/22 14:22 08/12/22 20:07 Ondansetron 4 Mg/2 Ml Vial IVP 4 mg Q6HR PRN Administration Nausea / Vomiting Polyethylene Glycol 17 gm 08/17/22 09:00 08/18/22 09:57 Polyethylene Glycol 3350 17 Gm Packet PO Not Given DAILY ANAID Sodium Chloride 10 ml 08/12/22 14:22 08/17/22 02:24 Sodium Chloride Flush 0.9% 10 Ml Syringe IVP 10 ml PRN PRN Administration NEEDED PER PROVIDER ORDERS Sodium Chloride 10 ml 08/12/22 17:00 08/18/22 09:58 Sodium Chloride Flush 0.9% 10 Ml Syringe IVP Not Given 0100,0900,1700 ANAID - Lab Result Fish Bone Diagrams: 08/18/22 04:24 08/18/22 04:24 - Additional Planning My Orders: My Active Orders 08/18/22 10:13 Miscellaenous Nursing Order [RC] QSHIFT Subjective - Subjective Patient Reports: Resting Comfortably, No Complaints (but refuses to eat, only takes in drinks) Objective Vital Signs: Vital Signs - 24 hr 08/17/22 08/18/22 08/18/22 19:00 00:00 07:46 Temperature 36.7 C 36.4 C L Heart Rate [ 98 98 Brachial] Heart Rate [ Monitoring electrodes] Respiratory 20 18 Rate Blood Pressure 158/77 H 170/82 H [Left Brachial artery] O2 Saturation 94 97 If not protocol 0.5 0.5 0.5 : Oxygen Flow, liters/minute 08/18/22 08/18/22 08/18/22 08:15 10:14 15:41 Temperature 36.5 C Heart Rate [ 99 Brachial] Heart Rate [ 93 Monitoring electrodes] Respiratory 18 Rate Blood Pressure 160/68 H 167/83 H [Left Brachial artery] O2 Saturation 94 If not protocol 0.5 0.5 : Oxygen Flow, liters/minute Oxygen O2 Source Nasal cannula I&O (Last 24 Hrs): Intake and Output Totals x24h 08/16/22 08/17/22 08/18/22 23:59 23:59 23:59 Intake Total 2553.019 2734.644 2620 Output Total 825 675 450 Balance 5755.070 3409.644 2170 General: Alert, Oriented x3, Other (Cachectic, bedridden) HEENT: PERRLA, Other (Cachectic, sunken eyes, chheks sunken, edentulous) Neck: Other (supple, poss prior surg) Neuro: Alert, Other (generalized weakness) Cardiovascular: Regular rate Respiratory: No respiratory distress Abdomen: Soft, No tenderness Extremities: No clubbing, No edema, Other (Skin tenting and muscle wasting present) - Results Results: Laboratory Results WBC 17.8 x10^3/uL (4.8-10.8) H 08/18/22 04:24 RBC 2.94 10^6/uL (4.70-6.10) L 08/18/22 04:24 Hgb 7.3 g/dL (14.0-18.0) L 08/18/22 04:24 Hct 24.5 % (42.0-52.0) L 08/18/22 04:24 MCV 83.3 fL (80.0-94.0) 08/18/22 04:24 MCH 24.8 pg (27.0-31.0) L 08/18/22 04:24 MCHC 29.8 g/dL (32.0-36.0) L 08/18/22 04:24 RDW 20.1 % (12.0-15.0) H 08/18/22 04:24 Plt Count 164 10^3/uL (130-450) 08/18/22 04:24 MPV 10.5 fL (7.4-11.4) 08/18/22 04:24 Neut # (Auto) 15.1 10^3/uL (1.5-6.6) H 08/18/22 04:24 Lymph # (Auto) 0.8 10^3/uL (1.5-3.5) L 08/18/22 04:24 [place] # (Auto) 1.2 10^3/uL (0.0-1.0) H 08/18/22 04:24 Eos # (Auto) 0.4 10^3/uL (0.0-0.7) 08/18/22 04:24 Baso # (Auto) 0.1 10^3/uL (0.0-0.1) 08/18/22 04:24 Absolute Nucleated RBC 0.00 x10^3/uL 08/18/22 04:24 Nucleated RBC % 0.0 /100WBC 08/18/22 04:24 Manual Slide Review Indicated 08/18/22 04:24 WBC Morphology NORMAL APPEARANCE (NORMAL) 08/17/22 09:32 Platelet Estimate NORMAL (130-450,000) (NORMAL) 08/18/22 04:24 Platelet Morphology NORMAL APPEARANCE (NORMAL) 08/17/22 09:32 RBC Morph Micro Appear 1+ ANISOCYTOSIS (NORMAL) 1+ HYPOCHROMASIA (NORMAL) 1+ OVALOCYTES (NORMAL) 08/18/22 04:24 RBC Morph Micro Appear 1+ ANISOCYTOSIS (NORMAL) 1+ HYPOCHROMASIA (NORMAL) 1+ OVALOCYTES (NORMAL) 08/18/22 04:24 RBC Morph Micro Appear 1+ ANISOCYTOSIS (NORMAL) 1+ HYPOCHROMASIA (NORMAL) 1+ OVALOCYTES (NORMAL) 08/18/22 04:24 PT 14.9 secs (9.9-12.6) H 08/12/22 12:38 INR 1.3 (0.8-1.2) H 08/12/22 12:38 Sodium 140 mmol/L (135-145) 08/18/22 04:24 Potassium 4.3 mmol/L (3.5-5.0) 08/18/22 04:24 Chloride 109 mmol/L (101-111) 08/18/22 04:24 Carbon Dioxide 23 mmol/L (21-32) 08/18/22 04:24 Anion Gap 8.0 (6-13) 08/18/22 04:24 BUN 14 mg/dL (6-20) 08/18/22 04:24 Creatinine 0.8 mg/dL (0.6-1.2) 08/18/22 04:24 Estimated GFR (MDRD) 96 (>89) 08/18/22 04:24 Glucose 100 mg/dL (70-100) 08/18/22 04:24 Calcium 8.3 mg/dL (8.5-10.3) L 08/18/22 04:24 Magnesium 1.5 mg/dL (1.7-2.8) L 08/18/22 04:24 Total Bilirubin 1.9 mg/dL (0.2-1.0) H 08/14/22 09:41 AST 139 IU/L (10-42) H 08/14/22 09:41 ALT 52 IU/L (10-60) 08/14/22 09:41 Alkaline Phosphatase 267 IU/L (42-121) H 08/14/22 09:41 Total Protein 5.9 g/dL (6.7-8.2) L 08/14/22 09:41 Albumin 2.2 g/dL (3.2-5.5) L 08/14/22 09:41 Globulin 3.7 g/dL (2.1-4.2) 08/14/22 09:41 Albumin/Globulin Ratio 0.6 (1.0-2.2) L 08/14/22 09:41 Blood Type O POSITIVE 08/12/22 12:46 Blood Type Recheck O POSITIVE 08/12/22 12:38 Antibody Screen NEGATIVE 08/12/22 12:46
--- NOTE | 2022-08-18 19:00 | ADVANCE CARE PLANNING NOTE ---
Advance Care Planning - Planning Encounter Date: 08/18/22 Time: 15:15 Purpose: To update the patient regarding his diagnosis of stage IV cancer. To determine his wishes regarding aggressiveness of medical care To confirm his wishes regarding next location after discharge. Parties in Attendance: I spoke to the patient in his hospital room. Decisional Capacity of the Patient: He is lucid, alert and oriented, and in no pain, conversing normally, and has full decisional capacity. - Encounter Subjective/Patient's Story: The patient currently lives alone, after his 3 years ago. Next door lives his 's sister Lisa, she checks in on him occasionally but not on a schedule. She has her own medical problems, since she attends hemodialysis for many hours on Mon, Wed, Fri. There is a close family friend Tristen, who also stops in to see pt often, but has never been a caregiver to him. The pt has gotten very week, eating less, losing weight. He fell, broke several ribs and required a chest tube placed for lung re-expansion, and is on the Gen Surgery service, Hospitalist consult was requested and I have started to see him daily. Objective/Medical Story: He had SCC diagnosed many years ago and had treatment. His last PET scan was 3 years ago, with no mets seen, he told me. This admission, his abd/pelvis CT is showing many liver mets. When he was admitted now, he was almost unresponsive, severely malnourished and cachectic, and was not informed of the liver mets at admission. He became more awake about a day ago, after he received many days of iv fluids, and his pain was better controlled, and we started treating his pneumonia. 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 But because of his malnutrition and continued poor hydration and nutrition, I estimate his prognosis is probably 1 month, and I did discuss this estimate with the patient today. I then told him what happened after his fall and about the fractured ribs and chest tube and current (mild) pneumonia), and now being bedridden, that he cannot go back to living alone. I told him what I have learned from his son and [id number]; that Lisa cannot care for him because of her own medical condition, needing hemodialysis 3 times a week, and that his son Andrea is not nearby and has his own family, and cannot be his caregiver. Then he asked why he needs caregivers. I gave him examples of what the nurses are doing for him here such as turning and repositioning since he cannot get OOB, bringing him medicines and nutrition and drinks, and would him if he needs to toilet. He then understood. Goals of Care: I told him that his son Andrea has chosen to have all medical care continue, and asked if the pt himself wants that plan now, he said Yes. No Comfort Care to be ordered yet. I told him that his son Andrea has requested the pt be DNR/DNI, and the patient agreed to continue DNR Code Status. I told him that his son Andrea has started to research what Hospice would do and where the patient should be discharged to after this hospitalization. Sandoval agreed he will want to be under Hospice Care, then said he wants to go home and not to any facility. He said he does not want a feeding tube to be kept alive, and will only eat and drink what he chooses, but understands that he is taking in not enough to get stronger again. Plan: Continue to treat the pneumonia and his volume depletion. No Comfort Care to be ordered yet. Discharge under Hospice Care is desired. Location of discharge and who will be his caregivers still needs to be determined. Continue with the DNR status. Code Status: Do Not Attempt Resuscitation Time spent on advance care plannin
[2022-08-18] MEDS ORDERED: LACTULOSE 10 GM /15 ML UDC PO ONE (19:07)
[2022-08-18] MEDS: ACETAMINOPHEN 1,000 MG/100 ML 1,000 MG/100 ML BAG IV PRN (19:35)
[2022-08-18] MEDS: SENNA 8.6 MG TABLET PO SCH (22:10)
[2022-08-19] MEDS: SODIUM CHLORIDE FLUSH 0.9% 10 ML SYRINGE IVP SCH ×3 (00:10→16:34)
[2022-08-19] MEDS: BUPRENORPHINE/NALOXONE 8-2 MG TAB SL SCH ×3 (05:54→22:00)
[2022-08-19] MEDS: SENNA 8.6 MG TABLET PO SCH ×3 (05:54→16:34)
[2022-08-19] MEDS: D5.45NS W/20 MEQ KCL 1,000 ML IV SCH ×2 (05:55→16:35)
[2022-08-19] MEDS: PIPERACILLIN/TAZOBACTAM 3.375 GM in SODIUM CHLORIDE 0.9% MINIBAG 100 ML IV SCH ×3 (06:02→21:54)
[2022-08-19] MEDS: polyethylene glycoL 3350 17 GM PACKET PO SCH (12:00)
[2022-08-19] MEDS: ENOXAPARIN 40 MG/0.4 ML SYRINGE SUBQ SCH (12:14)
--- NOTE | 2022-08-19 17:52 | PROVIDER PROGRESS NOTE ---
Assessment/Plan - Problem List (1) Pneumonia Assessment/Plan: Improved The patient was more tachypneic 08/16. Labs were all reviewed and his white blood count had increased from 12 on 08/14 to a WBC of 17 on 08/16. Pt was not on steroids to explain this increase. A chest x-ray was performed 08/16 and showed right-sided infiltrate which could be atelectasis, pneumonia or aspiration. I ordered empiric IV Zosyn started 08/16. He has not been dyspneic or hypoxic and was more alert the day after Zosyn began. Plan: Continue an empiric 5 day course of antibiotics, will use iv Zosyn, since it helped his clinical status. The final dose will be on 08/20. 2) Pneumothorax The chest tube was removed 08/15 by the general surgeon. On 08/16 a follow-up chest x-ray showed a right-sided pneumothorax Plan: General surgery has no new input 3) Broken ribs Management as per general surgery, pain meds and IS 4) FTT (failure to thrive) in adult Assessment/Plan: This patient has been very weak and also eating poorly. He is more alert since being on Suboxone since 08/14. His oral intake is very poor and he is needing pain meds, too weak to stand or get OOB on his own, basically bedbound now We stopped his Baclofen, Neurontin, oral Motrin, prn Ativan, Zoloft and Miralax, when he could not swallow 08/14. On 08/15 I met with pt's son Andrea and Andrea's (from [place]), as well and pt's caregiver and friend Tristen, and pt's [id number] Lisa, at bedside. We discussed his poor prognosis. Andrea has spoken to his step-brother Gerard, the pt's step son, who is currently working in [place]. Andrea and Gerard do agree to continue with DNR status for the pt. They wanted information about Hospice but did not request comfort care. [facility] started to meet with Andrea and . Then pt awoke and was lucid, a&o x3 and was able to say what he wanted. Andrea found the DPOA paperwork and it was completed legally. I had ordered a Hospice referral for care after [facility]. Plan: We are continuing IV fluids, since the pt did not want to start Comfort Care. We will start to decrease iv fluids, and cont to promote taking by mouth. Continue with the pured diet, and high calorie drinks Since the patient has improved clinically and is communicative and not in pain, our High Court Justice is working with the patient to plan location for discharge, and needing complete care. (5) Anemia Labs were all reviewed. Hgb has been stable. Suspect this is anemia of chronic disease given his cancer with mets diagnosis Plan: No new work-up is planned as the patient is likely to go under Hospice care soon (6) Cancer, metastatic C79.9 Today the patient requested more information about his prognosis and today I printed out reading material for him and reviewed with PRINCESS Hutton to read him these. He had SCC, last PET scan was 3 years ago, with no mets seen. This admission his abd CT is showing many liver mets. I gave him this info: he has SCC Stage 4, which has a <6 month prognosis. Because of his malnutrition and con tinued poor hydration and nutrition, I estimate his prognosis is probably 1 month, and I did discuss my estimate with the patient today. (7) Severe protein calorie malnutrition This patient has significant muscle wasting, loss of subq fat, oral intake of less than 50% of recommended for 2 weeks or more, has been basically bedridden and has a BMI of 16.1 Plan: No new work-up is planned as the patient is likely to go under Hospice care soon (8) AMS (altered mental status) Resolved. It was likely from needing narcotics for pain control. Now that the patient is on Suboxone he is awake and alert and his pain is also well controlled. - Current Meds Current Meds: Current Medications Generic Name Dose Route Start Last Admin Trade Name Freq PRN Reason Stop Dose Admin Buprenorphine HCl 0.5 tab 08/15/22 17:00 08/19/22 14:15 Buprenorphine/Naloxone 8-2 Mg Tab SL 0.5 tab TID ANAID Administration Enoxaparin Sodium 40 mg 08/13/22 09:00 08/19/22 12:14 Enoxaparin 40 Mg/0.4 Ml Syringe SUBQ 40 mg DAILY ANAID Administration Hydralazine HCl 10 mg 08/13/22 01:13 08/15/22 08:16 Hydralazine Inj 20 Mg/Ml Vial IVP 10 mg Q8H PRN Administration sys bp more than 170 Hydromorphone HCl 0.5 mg 08/12/22 14:22 08/17/22 22:33 Hydromorphone 0.5 Mg/0.5 Ml Syringe IVP 0.5 mg Q2H PRN Administration Pain 8 to 10 Potassium Chloride/Dextrose/Sod Cl 1,000 mls @ 83.33 mls/hr 08/14/22 14:45 08/19/22 16:35 D5.45ns W/20 Meq Kcl IV 83.3 mls/hr .Q12H1M ANAID Administration Acetaminophen 1,000 mg in 100 mls @ 400 mls/hr 08/14/22 14:48 08/18/22 19:52 Acetaminophen IV Infused Q6HR PRN Infusion Moderate Pain (Level 4-6) Piperacillin Sod/Tazobactam 100 mls @ 25 mls/hr 08/16/22 14:00 08/19/22 14:16 Sod 3.375 gm/ Sodium Chloride IV 25 mls/hr Q8H ANAID Administration Ondansetron HCl 4 mg 08/12/22 14:22 08/12/22 20:07 Ondansetron 4 Mg/2 Ml Vial IVP 4 mg Q6HR PRN Administration Nausea / Vomiting Polyethylene Glycol 17 gm 08/17/22 09:00 08/19/22 12:00 Polyethylene Glycol 3350 17 Gm Packet PO Not Given DAILY ANAID Sodium Chloride 10 ml 08/12/22 14:22 08/17/22 02:24 Sodium Chloride Flush 0.9% 10 Ml Syringe IVP 10 ml PRN PRN Administration NEEDED PER PROVIDER ORDERS Sodium Chloride 10 ml 08/12/22 17:00 08/19/22 16:34 Sodium Chloride Flush 0.9% 10 Ml Syringe IVP 10 ml 0100,0900,1700 ANAID Administration - Lab Result Fish Bone Diagrams: 08/18/22 04:24 08/18/22 04:24 Subjective - Subjective Patient Reports: Resting Comfortably, No Complaints (but refuses to eat, more than sips) Objective Vital Signs: Vital Signs - 24 hr 08/18/22 08/19/22 08/19/22 19:00 00:19 08:00 Temperature 36.7 C 36.4 C L Heart Rate [ 92 98 Brachial] Respiratory 20 18 Rate Blood Pressure 159/72 H 165/76 H [Left Brachial artery] O2 Saturation 95 97 If not protocol 0.5 0.5 0.5 : Oxygen Flow, liters/minute 08/19/22 08/19/22 08:11 16:00 Temperature 36.4 C L Heart Rate [ 94 Brachial] Respiratory 18 Rate Blood Pressure 164/80 H [Left Brachial artery] O2 Saturation 96 If not protocol 0.5 0.5 : Oxygen Flow, liters/minute Oxygen O2 Source Nasal cannula I&O (Last 24 Hrs): Intake and Output Totals x24h 08/17/22 08/18/22 08/20/22 23:59 23:59 00:59 Intake Total 2734.644 2920 1428.573 Output Total 675 750 650 Balance 2059.644 2170 778.573 General: Alert, Oriented x3, Other (Cachectic) HEENT: PERRLA, Other (Cachectic with sunken eyes and cheeks, edentulous, speech is soft) Neck: Supple Neuro: Alert, Other (Generalized weakness) Cardiovascular: Regular rate Respiratory: No respiratory distress Abdomen: No tenderness Extremities: No clubbing, No edema, Other (Skin tenting and muscle wasting) - Results Results: Laboratory Results WBC 17.8 x10^3/uL (4.8-10.8) H 08/18/22 04:24 RBC 2.94 10^6/uL (4.70-6.10) L 08/18/22 04:24 Hgb 7.3 g/dL (14.0-18.0) L 08/18/22 04:24 Hct 24.5 % (42.0-52.0) L 08/18/22 04:24 MCV 83.3 fL (80.0-94.0) 08/18/22 04:24 MCH 24.8 pg (27.0-31.0) L 08/18/22 04:24 MCHC 29.8 g/dL (32.0-36.0) L 08/18/22 04:24 RDW 20.1 % (12.0-15.0) H 08/18/22 04:24 Plt Count 164 10^3/uL (130-450) 08/18/22 04:24 MPV 10.5 fL (7.4-11.4) 08/18/22 04:24 Neut # (Auto) 15.1 10^3/uL (1.5-6.6) H 08/18/22 04:24 Lymph # (Auto) 0.8 10^3/uL (1.5-3.5) L 08/18/22 04:24 [place] # (Auto) 1.2 10^3/uL (0.0-1.0) H 08/18/22 04:24 Eos # (Auto) 0.4 10^3/uL (0.0-0.7) 08/18/22 04:24 Baso # (Auto) 0.1 10^3/uL (0.0-0.1) 08/18/22 04:24 Absolute Nucleated RBC 0.00 x10^3/uL 08/18/22 04:24 Nucleated RBC % 0.0 /100WBC 08/18/22 04:24 Manual Slide Review Indicated 08/18/22 04:24 WBC Morphology NORMAL APPEARANCE (NORMAL) 08/17/22 09:32 Platelet Estimate NORMAL (130-450,000) (NORMAL) 08/18/22 04:24 Platelet Morphology NORMAL APPEARANCE (NORMAL) 08/17/22 09:32 RBC Morph Micro Appear 1+ ANISOCYTOSIS (NORMAL) 1+ HYPOCHROMASIA (NORMAL) 1+ OVALOCYTES (NORMAL) 08/18/22 04:24 RBC Morph Micro Appear 1+ ANISOCYTOSIS (NORMAL) 1+ HYPOCHROMASIA (NORMAL) 1+ OVALOCYTES (NORMAL) 08/18/22 04:24 RBC Morph Micro Appear 1+ ANISOCYTOSIS (NORMAL) 1+ HYPOCHROMASIA (NORMAL) 1+ OVALOCYTES (NORMAL) 08/18/22 04:24 PT 14.9 secs (9.9-12.6) H 08/12/22 12:38 INR 1.3 (0.8-1.2) H 08/12/22 12:38 Sodium 140 mmol/L (135-145) 08/18/22 04:24 Potassium 4.3 mmol/L (3.5-5.0) 08/18/22 04:24 Chloride 109 mmol/L (101-111) 08/18/22 04:24 Carbon Dioxide 23 mmol/L (21-32) 08/18/22 04:24 Anion Gap 8.0 (6-13) 08/18/22 04:24 BUN 14 mg/dL (6-20) 08/18/22 04:24 Creatinine 0.8 mg/dL (0.6-1.2) 08/18/22 04:24 Estimated GFR (MDRD) 96 (>89) 08/18/22 04:24 Glucose 100 mg/dL (70-100) 08/18/22 04:24 Calcium 8.3 mg/dL (8.5-10.3) L 08/18/22 04:24 Magnesium 1.5 mg/dL (1.7-2.8) L 08/18/22 04:24 Total Bilirubin 1.9 mg/dL (0.2-1.0) H 08/14/22 09:41 AST 139 IU/L (10-42) H 08/14/22 09:41 ALT 52 IU/L (10-60) 08/14/22 09:41 Alkaline Phosphatase 267 IU/L (42-121) H 08/14/22 09:41 Total Protein 5.9 g/dL (6.7-8.2) L 08/14/22 09:41 Albumin 2.2 g/dL (3.2-5.5) L 08/14/22 09:41 Globulin 3.7 g/dL (2.1-4.2) 08/14/22 09:41 Albumin/Globulin Ratio 0.6 (1.0-2.2) L 08/14/22 09:41 Blood Type O POSITIVE 08/12/22 12:46 Blood Type Recheck O POSITIVE 08/12/22 12:38 Antibody Screen NEGATIVE 08/12/22 12:46
[2022-08-19] MEDS: HYDROmorphone 0.5 MG/0.5 ML SYRINGE IVP PRN (18:32)
[2022-08-19] MEDS: SODIUM CHLORIDE FLUSH 0.9% 10 ML SYRINGE IVP PRN (18:32)
[2022-08-19] MEDS: ACETAMINOPHEN 1,000 MG/100 ML 1,000 MG/100 ML BAG IV PRN (21:11)
[2022-08-19] MEDS: ZINC OXIDE 20% OINT 30 GM TUBE TOP PRN (21:55)
[2022-08-20] MEDS: HYDROmorphone 0.5 MG/0.5 ML SYRINGE IVP PRN (00:34)
[2022-08-20] MEDS: SODIUM CHLORIDE FLUSH 0.9% 10 ML SYRINGE IVP SCH ×3 (00:34→15:40)
[2022-08-20] MEDS: hydrALAZINE INJ 20 MG/ML VIAL IVP PRN (00:49)
[2022-08-20] MEDS: SODIUM CHLORIDE FLUSH 0.9% 10 ML SYRINGE IVP PRN (00:49)
[2022-08-20] MEDS: D5.45NS W/20 MEQ KCL 1,000 ML IV SCH ×2 (04:37→16:40)
[2022-08-20] MEDS: PIPERACILLIN/TAZOBACTAM 3.375 GM in SODIUM CHLORIDE 0.9% MINIBAG 100 ML IV SCH ×3 (05:36→21:50)
[2022-08-20] MEDS: BUPRENORPHINE/NALOXONE 8-2 MG TAB SL SCH ×3 (05:36→21:50)
[2022-08-20] MEDS: ENOXAPARIN 40 MG/0.4 ML SYRINGE SUBQ SCH (08:57)
[2022-08-20] MEDS: polyethylene glycoL 3350 17 GM PACKET PO SCH (08:57)
[2022-08-20] MEDS: ACETAMINOPHEN 1,000 MG/100 ML 1,000 MG/100 ML BAG IV PRN (15:39)
[2022-08-20] MEDS ORDERED: MAGNESIUM HYDROXIDE 2,400 MG/30 ML UDC PO ONE (19:00)
--- NOTE | 2022-08-20 20:48 | PROVIDER PROGRESS NOTE ---
Assessment/Plan - Problem List (1) Pneumonia Assessment/Plan: Improved The patient was more tachypneic 08/16. Labs were all reviewed. His white blood count had increased from 12 on 08/14 to a WBC of 17 on 08/16. A chest x-ray was performed 08/16 and showed right-sided infiltrate which could be atelectasis, pneumonia or aspiration. I ordered empiric IV Zosyn, which started 08/16. He was never hypoxic, did not need supplemental O2. He also made no sputum to send for culture. Plan: He is finishing as empiric 5 day course of iv Zosyn with today's dosing. He will be medically cleared for discharge after today 2) Pneumothorax The chest tube was removed 08/15 by the general surgeon. On 08/16 a follow-up chest x-ray showed a right-sided pneumothorax Plan: General surgery has no other input 3) Broken ribs This was a result of the fall at home. Plan: General surgery has no other input 4) FTT (failure to thrive) in adult This patient has been very weak and also eating poorly. He is more alert ever since being on Suboxone since 08/14. His oral intake is very poor. Since being admitted he is too weak to stand or get OOB on his own, and he is now bed-bound. On 08/14, we stopped his Baclofen, Neurontin, oral Motrin, prn Ativan, Zoloft and Miralax, when he could not swallow On 08/15 I met with pt's son Andrea and Andrea's (from [place]), as well and pt's caregiver and friend Tristen, and pt's [id number] Lisa, at bedside. We discussed his poor prognosis. Andrea also spoke to his step-brother Gerard, the pt's step-son, who is currently working in [place]. Andrea and Gerard do agree to continue with DNR status for the pt. Andrea brought in a Notary and the pt and witnesses completed the DPOA paperwork here several days ago. Hospice referral was sent for care after [facility]. Plan: We continued IV fluids, since he is not adequately taking nutrition or hydration. We will start to decrease the iv, if he is taking increased by mouth or if he chooses comfort measures. Continue with the pured diet, and high calorie drinks Since the patient has improved clinically and is communicative and not in pain, our Executive Director [employer] met with the patient and he was interviewed by a staff from [facility]. Plan is for him to be discharged there tomorrow 08/21, by ambulance (5) Anemia Hgb has been low but stable Suspect this is anemia of chronic disease given his cancer with mets diagnosed Plan: No new work-up is planned as the patient will go under Hospice care soon (6) Cancer, metastatic C79.9 When the patient became more alert, about 4 days ago, he asked about his prognos is. I gave him reading material about head and neck squamous cell cancer with mets to the liver. His last PET scan was 3 years ago when he had no mets, but he did not go for yearly cancer imaging after that. His prognosis with Stage 4 cancer is less than 6 months according to the literature Because of his malnutrition and continued poor hydration and nutrition, I estimate his prognosis is probably 1 month. I did present this to the patient on 08/18 and 08/19 and today he has agreed to go under Hospice care after [facility], to [facility], which is what his son Andrea has arranged. (7) Severe protein calorie malnutrition This patient has significant muscle wasting, loss of subq fat, oral intake of less than 50% of recommended for 2 weeks or more, has been basically bedridden and has a BMI of 16.1 Plan: No new work-up is planned as the patient is to go under Hospice care (8) AMS (altered mental status) Resolved. He was somnolent at admission It was likely from getting narcotics for pain control. Now that the patient is on Suboxone he is awake and alert and his pain is also well controlled. - Current Meds Current Meds: Current Medications Generic Name Dose Route Start Last Admin Trade Name Freq PRN Reason Stop Dose Admin Buprenorphine HCl 0.5 tab 08/15/22 17:00 08/20/22 13:22 Buprenorphine/Naloxone 8-2 Mg Tab SL 0.5 tab TID ANAID Administration Enoxaparin Sodium 40 mg 08/13/22 09:00 08/20/22 08:57 Enoxaparin 40 Mg/0.4 Ml Syringe SUBQ 40 mg DAILY ANAID Administration Hydralazine HCl 10 mg 08/13/22 01:13 08/20/22 00:49 Hydralazine Inj 20 Mg/Ml Vial IVP 10 mg Q8H PRN Administration sys bp more than 170 Hydromorphone HCl 0.5 mg 08/12/22 14:22 08/20/22 00:34 Hydromorphone 0.5 Mg/0.5 Ml Syringe IVP 0.5 mg Q2H PRN Administration Pain 8 to 10 Potassium Chloride/Dextrose/Sod Cl 1,000 mls @ 83.33 mls/hr 08/14/22 14:45 08/20/22 16:40 D5.45ns W/20 Meq Kcl IV 83.3 mls/hr .Q12H1M ANAID Administration Acetaminophen 1,000 mg in 100 mls @ 400 mls/hr 08/14/22 14:48 08/20/22 15:57 Acetaminophen IV Infused Q6HR PRN Infusion Moderate Pain (Level 4-6) Piperacillin Sod/Tazobactam 100 mls @ 25 mls/hr 08/16/22 14:00 08/20/22 17:29 Sod 3.375 gm/ Sodium Chloride IV Infused Q8H ANAID Infusion Multi-Ingredient Ointment 1 applic 08/19/22 19:45 08/19/22 21:55 Zinc Oxide 20% Oint 30 Gm Tube TOP 1 applic PRN PRN Administration Skin Care Ondansetron HCl 4 mg 08/12/22 14:22 08/12/22 20:07 Ondansetron 4 Mg/2 Ml Vial IVP 4 mg Q6HR PRN Administration Nausea / Vomiting Polyethylene Glycol 17 gm 08/17/22 09:00 08/20/22 08:57 Polyethylene Glycol 3350 17 Gm Packet PO 17 gm DAILY ANAID Administration Sodium Chloride 10 ml 08/12/22 14:22 08/20/22 00:49 Sodium Chloride Flush 0.9% 10 Ml Syringe IVP 10 ml PRN PRN Administration NEEDED PER PROVIDER ORDERS Sodium Chloride 10 ml 08/12/22 17:00 08/20/22 15:40 Sodium Chloride Flush 0.9% 10 Ml Syringe IVP 10 ml 0100,0900,1700 ANAID Administration - Lab Result Fish Bone Diagrams: 08/18/22 04:24 08/18/22 04:24 - Additional Planning My Orders: My Active Orders 08/21/22 05:00 BMP - BASIC METABOLIC PANEL [CHEM] DAILYLAB CBC - COMP BLD CT W/AUTO DIFF [HEME] DAILYLAB Subjective - Subjective Patient Reports: Resting Comfortably, No Complaints Objective Vital Signs: Vital Signs - 24 hr 08/20/22 08/20/22 08/20/22 00:35 00:44 00:54 Temperature 36.4 C L Heart Rate [ 90 Brachial] Heart Rate [ 91 89 Monitoring electrodes] Respiratory 16 Rate Blood Pressure 175/75 H 173/80 H 165/80 H [Left Brachial artery] O2 Saturation 95 If not protocol 0.5 : Oxygen Flow, liters/minute 08/20/22 08/20/22 08/20/22 01:00 01:07 01:15 Temperature Heart Rate [ Brachial] Heart Rate [ 92 89 94 Monitoring electrodes] Respiratory Rate Blood Pressure 159/74 H 154/73 H 148/74 H [Left Brachial artery] O2 Saturation If not protocol : Oxygen Flow, liters/minute 08/20/22 08/20/22 08/20/22 01:30 01:45 08:05 Temperature 36.9 C Heart Rate [ 105 H Brachial] Heart Rate [ 97 99 Monitoring electrodes] Respiratory 18 Rate Blood Pressure 161/75 H 156/64 H 162/76 H [Left Brachial artery] O2 Saturation 95 If not protocol 0.5 : Oxygen Flow, liters/minute 08/20/22 15:32 Temperature 36.6 C Heart Rate [ Brachial] Heart Rate [ 104 H Monitoring electrodes] Respiratory 18 Rate Blood Pressure 146/72 H [Left Brachial artery] O2 Saturation 96 If not protocol 0.5 : Oxygen Flow, liters/minute Oxygen O2 Source Nasal cannula I&O (Last 24 Hrs): Intake and Output Totals x24h 08/18/22 08/19/22 08/20/22 22:59 23:59 23:59 Intake Total 2930 Output Total 650 Balance 2280 General: Alert, Oriented x3, Other (Extremely emaciated, cachectic, has temporal wasting, sunken eyes, hollow cheeks) HEENT: Mucous membr. moist/pink, Other (edentulous) Neck: Supple Neuro: Alert, Other (generalized weakness, moves all extrem) Cardiovascular: Regular rate Respiratory: No respiratory distress Abdomen: Soft Extremities: No clubbing, Other (Skin tenting and severe muscle wasting of all extremities) - Results Results: Laboratory Results WBC 17.8 x10^3/uL (4.8-10.8) H 08/18/22 04:24 RBC 2.94 10^6/uL (4.70-6.10) L 08/18/22 04:24 Hgb 7.3 g/dL (14.0-18.0) L 08/18/22 04:24 Hct 24.5 % (42.0-52.0) L 08/18/22 04:24 MCV 83.3 fL (80.0-94.0) 08/18/22 04:24 MCH 24.8 pg (27.0-31.0) L 08/18/22 04:24 MCHC 29.8 g/dL (32.0-36.0) L 08/18/22 04:24 RDW 20.1 % (12.0-15.0) H 08/18/22 04:24 Plt Count 164 10^3/uL (130-450) 08/18/22 04:24 MPV 10.5 fL (7.4-11.4) 08/18/22 04:24 Neut # (Auto) 15.1 10^3/uL (1.5-6.6) H 08/18/22 04:24 Lymph # (Auto) 0.8 10^3/uL (1.5-3.5) L 08/18/22 04:24 [place] # (Auto) 1.2 10^3/uL (0.0-1.0) H 08/18/22 04:24 Eos # (Auto) 0.4 10^3/uL (0.0-0.7) 08/18/22 04:24 Baso # (Auto) 0.1 10^3/uL (0.0-0.1) 08/18/22 04:24 Absolute Nucleated RBC 0.00 x10^3/uL 08/18/22 04:24 Nucleated RBC % 0.0 /100WBC 08/18/22 04:24 Manual Slide Review Indicated 08/18/22 04:24 WBC Morphology NORMAL APPEARANCE (NORMAL) 08/17/22 09:32 Platelet Estimate NORMAL (130-450,000) (NORMAL) 08/18/22 04:24 Platelet Morphology NORMAL APPEARANCE (NORMAL) 08/17/22 09:32 RBC Morph Micro Appear 1+ ANISOCYTOSIS (NORMAL) 1+ HYPOCHROMASIA (NORMAL) 1+ OVALOCYTES (NORMAL) 08/18/22 04:24 RBC Morph Micro Appear 1+ ANISOCYTOSIS (NORMAL) 1+ HYPOCHROMASIA (NORMAL) 1+ OVALOCYTES (NORMAL) 08/18/22 04:24 RBC Morph Micro Appear 1+ ANISOCYTOSIS (NORMAL) 1+ HYPOCHROMASIA (NORMAL) 1+ OVALOCYTES (NORMAL) 08/18/22 04:24 PT 14.9 secs (9.9-12.6) H 08/12/22 12:38 INR 1.3 (0.8-1.2) H 08/12/22 12:38 Sodium 140 mmol/L (135-145) 08/18/22 04:24 Potassium 4.3 mmol/L (3.5-5.0) 08/18/22 04:24 Chloride 109 mmol/L (101-111) 08/18/22 04:24 Carbon Dioxide 23 mmol/L (21-32) 08/18/22 04:24 Anion Gap 8.0 (6-13) 08/18/22 04:24 BUN 14 mg/dL (6-20) 08/18/22 04:24 Creatinine 0.8 mg/dL (0.6-1.2) 08/18/22 04:24 Estimated GFR (MDRD) 96 (>89) 08/18/22 04:24 Glucose 100 mg/dL (70-100) 08/18/22 04:24 Calcium 8.3 mg/dL (8.5-10.3) L 08/18/22 04:24 Magnesium 1.5 mg/dL (1.7-2.8) L 08/18/22 04:24 Total Bilirubin 1.9 mg/dL (0.2-1.0) H 08/14/22 09:41 AST 139 IU/L (10-42) H 08/14/22 09:41 ALT 52 IU/L (10-60) 08/14/22 09:41 Alkaline Phosphatase 267 IU/L (42-121) H 08/14/22 09:41 Total Protein 5.9 g/dL (6.7-8.2) L 08/14/22 09:41 Albumin 2.2 g/dL (3.2-5.5) L 08/14/22 09:41 Globulin 3.7 g/dL (2.1-4.2) 08/14/22 09:41 Albumin/Globulin Ratio 0.6 (1.0-2.2) L 08/14/22 09:41 Blood Type O POSITIVE 08/12/22 12:46 Blood Type Recheck O POSITIVE 08/12/22 12:38 Antibody Screen NEGATIVE 08/12/22 12:46
[2022-08-21] MEDS: HYDROmorphone 0.5 MG/0.5 ML SYRINGE IVP PRN (01:25)
[2022-08-21] MEDS: SODIUM CHLORIDE FLUSH 0.9% 10 ML SYRINGE IVP SCH ×4 (01:25→23:56)
[2022-08-21] MEDS: BUPRENORPHINE/NALOXONE 8-2 MG TAB SL SCH ×3 (06:37→23:55)
[2022-08-21] MEDS: ZINC OXIDE 20% OINT 30 GM TUBE TOP PRN (06:38)
[2022-08-21] MEDS: PIPERACILLIN/TAZOBACTAM 3.375 GM in SODIUM CHLORIDE 0.9% MINIBAG 100 ML IV SCH ×3 (06:40→23:55)
[2022-08-21] MEDS: DOCUSATE SODIUM 250 MG CAPSULE PO SCH (09:00)
[2022-08-21] MEDS: polyethylene glycoL 3350 17 GM PACKET PO SCH (09:00)
[2022-08-21] MEDS: ENOXAPARIN 40 MG/0.4 ML SYRINGE SUBQ SCH (09:00)
[2022-08-21] MEDS: SENNA 8.6 MG TABLET PO SCH (09:01)
[2022-08-21] MEDS: ACETAMINOPHEN 1,000 MG/100 ML 1,000 MG/100 ML BAG IV PRN ×2 (09:08→19:25)
--- NOTE | 2022-08-21 09:09 | Discharge Plan ---
Discharge Plan Problem Reviewed?: Yes Disposition: 50 Hospice/Home DC/Xfer Condition: Fair Prescriptions: Amox/Clav 500/125 [Augmentin 500/125] 1 tablet PO Q12H #6 tablet Bisacodyl Supp [Dulcolax Supp] 10 mg WA DAILY PRN #3 supp PRN Reason: Constipation Haloperidol Oral Soln [Haldol Oral Soln] 1 mg PO Q6H PRN #15 ml PRN Reason: Nausea / Vomiting Hyoscyamine [Levsin] 0.125 mg SL Q4H PRN #12 tablet PRN Reason: secretions LORazepam [Lorazepam INTENSOL] 1 mg PO Q6H PRN #5 ml PRN Reason: Anxiety Acetaminophen [Pain Relief] 650 mg PO Q6H PRN #12 tab PRN Reason: fever, pain, headache Morphine Oral Soln [Roxanol] 5 mg PO Q4H PRN #30 ml PRN Reason: pain or breathlessness Sennosides/Docusate Sodium [Senna-S Tablet] 1 each PO BID PRN #10 tablet PRN Reason: Constipation Diet: Regular (small, easy to chew, eggs/malt-o-meal/jello/broth/potatoes/pasta) Activity Restrictions: Activity as Tolerated Shower Restrictions: No Driving Restrictions: No Health Concerns: You have been losing weight for 2 years and getting gradually weaker and weaker. This finally resulted in you see your PCP on Saturday, August 13. It is a private practice we do not have access to those records. Then you collapsed on Saturday were brought to the hospital August 14. Because of your collapse, you broke several ribs, and also needed a chest tube for collapsed lung. You finally recovered from the collapsed lung and the chest tube was pulled. We found to be profoundly malnourished gentleman who has a history of head and neck cancer. Unfortunately your cancer has come back and has spread to multiple lesions in your liver. You and your family have decided he will transition to hospice. Plan of Treatment: During your stay our plan of treatment consisted of mainly inflating your lung, taking care of your rib cage pain. You did develop a touch of pneumonia because you could not take a deep breath. Discharge plan is to: 1. Hospice will take over and start processing you on August 23. They have all the equipment you would need such as a hospital bed, medications, etc. 2. Because you cannot take care of yourself due to weakness, you will be discharged to a longterm and will be living there. You and your son have made arrangements for this. Paperwork was signed 08/22/22. 3. You have completed antibiotics for a small pneumonia seen on chest xray and do not need any more treatment. 4. Please let your primary care provider office, Dr. Barboza, know that you are at home with hospice Care Goals: To have your pain and discomfort managed adequately so that you have comfort and peace being at home. Your goal is to pass away at home. Assessment: Patient is alert, aware that he is going home with hospice, and his main worry is where his "bed will be" Follow-Up Care: Hospice No Smoking: If you smoke, Please STOP! Call for help.
--- NOTE | 2022-08-21 15:38 | PROVIDER PROGRESS NOTE ---
Progress Note August 21, 2022 August 21, 2022 3:30 PM Patient was to be discharged today. However between the ages of would be (who would be his new caregivers) and hospice would be, they are not able to coordinate opening him up to hospice until of this week. Today is Saturday. There is no one to be able to take care of him if he gets home. As hopson ch discharge will not be today. The patient says this is all okay with him. He is not invested anyone where the other other than he just wants to go home. He denies any pain. Not eating very well. Hard to clear secretions. I first saw this patient on August 13. At that time he was almost unresponsive, severely malnourished and cachectic. With food, control of his pain, and resumption of his Suboxone, he is an alert fatigued elderly gentleman now. Still cachectic, still malnourished but alert, and normally conversant. Active Medications Buprenorphine HCl (Buprenorphine/Naloxone 8-2 Mg Tab) 0.5 tab SL TID [facility] Last Admin: 08/21/22 14:31 Dose: 0.5 tab Docusate Sodium (Docusate Sodium 250 Mg Capsule) 250 - 500 mg PO DAILY [facility] Last Admin: 08/21/22 09:00 Dose: 500 mg Enoxaparin Sodium (Enoxaparin 40 Mg/0.4 Ml Syringe) 40 mg SUBQ DAILY [facility] Last Admin: 08/21/22 09:00 Dose: 40 mg Hydromorphone HCl (Hydromorphone 0.5 Mg/0.5 Ml Syringe) 0.5 mg IVP Q2H PRN PRN Reason: Pain 8 to 10 Last Admin: 08/21/22 01:25 Dose: 0.5 mg Acetaminophen (Acetaminophen) 1,000 mg in 100 mls @ 400 mls/hr IV Q6HR PRN PRN Reason: Moderate Pain (Level 4-6) Last Infusion: 08/21/22 10:49 Dose: Infused Piperacillin Sod/Tazobactam (Sod 3.375 gm/ Sodium Chloride) 100 mls @ 25 mls/hr IV Q8H [facility] Last Admin: 08/21/22 14:31 Dose: 25 mls/hr Multi-Ingredient Ointment (Zinc Oxide 20% Oint 30 Gm Tube) 1 applic TOP PRN PRN PRN Reason: Skin Care Last Admin: 08/21/22 06:38 Dose: 1 applic Ondansetron HCl (Ondansetron 4 Mg/2 Ml Vial) 4 mg IVP Q6HR PRN PRN Reason: Nausea / Vomiting Last Admin: 08/12/22 20:07 Dose: 4 mg Polyethylene Glycol (Polyethylene Glycol 3350 17 Gm Packet) 17 gm PO DAILY [facility] Last Admin: 08/21/22 09:00 Dose: 17 gm Senna (Senna 8.6 Mg Tablet) 8.6 - 17.2 mg PO DAILY [facility] Last Admin: 08/21/22 09:01 Dose: 17.2 mg Sodium Chloride (Sodium Chloride Flush 0.9% 10 Ml Syringe) 10 ml IVP PRN PRN PRN Reason: NEEDED PER PROVIDER ORDERS Last Admin: 08/20/22 00:49 Dose: 10 ml Sodium Chloride (Sodium Chloride Flush 0.9% 10 Ml Syringe) 10 ml IVP 0100,0900,1700 [facility] Last Admin: 08/21/22 09:02 Dose: Not Given Aspirin [Adult Aspirin Regimen] 81 mg PO DAILY 03/08/20 Omeprazole 20 mg PO DAILY 03/08/20 Sertraline HCl 100 mg PO DAILY 03/08/20 Tamsulosin [Flomax] 0.4 mg PO DAILY 03/08/20 Gabapentin [Neurontin] 300 mg PO TID 12/23/20 Senna [Senokot] 1 tab PO DAILY 12/23/20 Buprenorphine HCl/Naloxone HCl [Buprenorphine-Nalox 8-2Mg Film] 0.5 film SL TID 08/12/22 Metoprolol Succinate [Toprol Xl] 25 mg PO DAILY 08/12/22 Budesonide/Formoterol Fumarate [Symbicort 160-4.5 Mcg Inhaler] 1 - 2 puffs INH Q4H PRN 08/13/22 diphenhydrAMINE [Benadryl] 25 mg PO DAILY PRN 08/13/22 Exam: Temperature 36.5, pulse rate 108, blood pressure 156/79, respirations 18, 93% on half a liter nasal cannula Alert and oriented but fatigued appearing cachectic elderly gentleman who has no teeth. Rib cage visible, skull protuberance through his skin, no respiratory distress. Mild deformity of the jaw from his previous surgery. Neck has shotty adenopathy. Diminished breath sounds at the bases. Occasionally he coughs and brings up yellowish phlegm. No respiratory distress, no rhonchi. Tachycardic regular rate and rhythm Abdomen is soft, hypoactive bowel sounds, he is only eating 10% of his food at best. Last bowel movement recorded was August 09 No muscle mass or fat. Severely cachectic Alert and oriented to person, place, and is agreeable to going home with hospice Assessment/Plan - Problem List (1) Pneumonia Assessment/Plan: Presented his tachypnea on August 16. White cell count was increasing. Chest x- ray showed right-sided infiltrate. Completed 5 days of Zosyn August 20. 2) Pneumothorax after fall at home The chest tube was removed 08/15 by the general surgeon. On 08/16 a follow-up chest x-ray showed a right-sided pneumothorax Plan: General surgery has no other input 3) Broken ribs This was a result of the fall at home. Plan: General surgery has no other input 4) FTT (failure to thrive) in adult Patient presented as weakness with a fall at home resulting in rib fractures and pneumothorax. This resulted in a chest tube being placed and then we were consulted. When I spoke to his [id number] on August 13, the patient been gradually losing weight for 2 years. His and she attributed his weight loss to the grief reaction. She lives in an apartment over his garage. He lives in the main house. She brings him over food but she would find food rotting in the refrigerator or left on the kitchen counter. He also does not have any teeth because his dentures have been fit since his head and neck cancer treatment. She never suspected that he had recurrence of his cancer. He is now bedbound. Hospitalist met with pt's son Andrea and Andrea's (from [place]) on 08/15, as well and pt's caregiver and friend Tristen, and pt's [id number] Lisa, at bedside. We discussed his poor prognosis. Andrea also spoke to his step-brother Gerard, the pt's step-son, who is currently working in [place]. Andrea and Gerard do agree to continue with DNR status for the pt. Andrea brought in a Notary and the pt and witnesses completed the DPOA paperwork here several days ago. Hospice referral was sent for care after [facility]. Plan: We are continuing a pured diet and high calorie drinks. He really is not eating very much. Changes of would be will be his primary caregivers at home. And then hospice will help take care of him with [facility]. He was to be discharged today, but coordination between no services does not allow the patient to be discharged until of this week. (5) Anemia Hgb has been low but stable Suspect this is anemia of chronic disease given his cancer with mets diagnosed Plan: No new work-up is planned as the patient will go under Hospice care soon (6) Cancer, metastatic C79.9 When the patient became more alert, about 5 days ago, he asked about his prognosis. He was given reading material about head and neck squamous cell cancer with mets to the liver. His last PET scan was 3 years ago when he had no mets, but he did not go for yearly cancer imaging after that. His prognosis with Stage 4 cancer is less than 6 months according to the literature Because of his malnutrition and continued poor hydration and nutrition, we estimate his prognosis is poor with probably 1 month left. This was presented to the patient on 08/18 and 08/19 and on 08/20, he has agreed to go under Hospice care after [facility], to [facility], which is what his son Andrea has arranged. (7) Severe protein calorie malnutrition This patient has significant muscle wasting, loss of subq fat, oral intake of less than 50% of recommended for 2 weeks or more, has been basically bedridden and has a BMI of 16.1 Plan: No new work-up is planned as the patient is to go under Hospice care (8) AMS (altered mental status) Resolved. He was somnolent at admission It was likely from getting narcotics for pain control. Now that the patient is on Suboxone he is awake and alert and his pain is also well controlled. I am now the new hospitalist coming on service again. I had met him the previous week. He is definitely much more alert, and himself in comparison to what was presented on August 12
[2022-08-22] MEDS: ZINC OXIDE 20% OINT 30 GM TUBE TOP PRN (00:06)
[2022-08-22] MEDS: SODIUM CHLORIDE FLUSH 0.9% 10 ML SYRINGE IVP PRN (04:28)
[2022-08-22] MEDS: HYDROmorphone 0.5 MG/0.5 ML SYRINGE IVP PRN ×2 (04:28→20:55)
[2022-08-22] MEDS: DOCUSATE SODIUM 250 MG CAPSULE PO SCH (08:11)
[2022-08-22] MEDS: BUPRENORPHINE/NALOXONE 8-2 MG TAB SL SCH ×2 (08:11→16:37)
[2022-08-22] MEDS: SENNA 8.6 MG TABLET PO SCH (08:11)
[2022-08-22] MEDS: ENOXAPARIN 40 MG/0.4 ML SYRINGE SUBQ SCH (08:12)
[2022-08-22] MEDS: polyethylene glycoL 3350 17 GM PACKET PO SCH (08:12)
[2022-08-22] MEDS: SODIUM CHLORIDE FLUSH 0.9% 10 ML SYRINGE IVP SCH ×2 (08:12→16:36)
[2022-08-22] MEDS: PIPERACILLIN/TAZOBACTAM 3.375 GM in SODIUM CHLORIDE 0.9% MINIBAG 100 ML IV SCH ×2 (08:12→16:36)
--- NOTE | 2022-08-22 19:33 | PROVIDER PROGRESS NOTE ---
Progress Note August 22, 2022 7:25 PM Patient was seen twice today. Once with son at the bedside. In discussions at care conference, our thought was that this patient was going home with [facility]. He tells me that he changes mind and would prefer to go to a fdc. She plans on going to a fdc in [place] with hospice. Son is at the bedside, waiting to sign paperwork to get that process going for his dad tomorrow. Exam: Temperature 36.4, heart rate 103, blood pressure 134/67, respirations 16, 95% saturated and 1/2 L nasal cannula He is a cachectic, malnourished, elderly gentleman. When he was here on admission he was quite dehydrated, with skin tenting, or dry oral mucosa and all of that has gone away. He still eating very poorly. Edentulous. Coarse upper airway sounds but no respiratory distress and he is comfortable sitting at 35 degrees in bed speaking to his son and to me. Irregular rate and rhythm with a murmur Abdomen is soft, nontender hypoactive bowel sounds. Last bowel movement was right second. Neurologically alert, oriented. Generalized weakness where he can barely sit up on his own and transition to a sitting position. His metabolic encephalopathy from admission has resolved. Assessment/plan 1. Pneumonia that presented his tachypnea and increasing white cell count on August 16. Chest x-ray showed right-sided infiltrate. Completed 5 days of antibiotics on August 20 2. Pneumothorax after fall at home with rib fractures Chest tube removed by surgeon on August 15. August 16 he has a possible small right apical pneumothorax but not clinically significant and patient is not symptomatic. We are focusing on comfort measures at this time. 3. Metastatic head and neck cancer to liver. Patient is not requesting therapy. He is discharged to a fdc tomorrow. And hospice will open them up tomorrow. They are asking for a comfort kit to be delivered. I will call it into would be community pharmacy.
--- NOTE | 2022-08-22 19:51 | DISCHARGE SUMMARY ---
"Discharge Summary Admit Date: 08/12/22 Discharge Date: 08/23/22 Discharging Provider: Janneth Segura MD Primary Care Provider: Suhas Barboza MD Code Status: Do Not Attempt Resuscitation Condition at Discharge: Fair Discharge Disposition: 50 Hospice/Home DC/Xfer - DIAGNOSES Discharge Diagnoses with Status of Each Condition: 1. Multiple rib fractures on the right 2. Pneumothorax right lung 3. Fall at home 4. History of head and neck cancer 5. Metastatic head and neck cancer to the liver 6. Failure to thrive 7. Severe protein calorie malnutrition 8. Left lung pneumonia 9. Anemia of chronic disease - HPI History of Present Illness: frail 71 year old gentlemen. lives alone. history tobacco use, home O2, head and neck cancer. ground level fall with right ptx and 2 broken ribs by cxr. ct chest pending. feeling better after chest tube placement. has been very weak for a long time. he has been losing weight for 2 years and it was atributed to his grief at the of his 2 years ago and dentures didn't fit so didn't want to eat. [id number] lives in adjacent apartment. she is on dialysis. no other support at home for him. Sister in law states He was seen by his primary care provider on approximately August 11. Patient collapsed on August 12. In evaluating him for the pneumothorax and broken ribs, the CAT scan shows multiple, multiple metastatic lesions to the liver. This is in a gentleman who had a treatment for head and neck cancer in the past. History - Past Medical History Cardiovascular: reports: Hypertension, High cholesterol, Peripheral Vascular Disease Respiratory: reports: Emphysema Neuro: reports: None Endocrine/Autoimmune: reports: None GI: reports: GERD : reports: Benign prostate hypertrophy HEENT: reports: None Psych: reports: None Musculoskeletal: reports: Chronic back pain Derm: reports: Other MRSA Hx?: No - Past Surgical History Ortho: reports: Other Cardiovascular: reports: Angioplasty HEENT: reports: Other Derm: reports: Skin grafts - CONSULTS | PROCEDURES Procedures: Multiple chest x-rays done. Preliminary chest x-ray showed pneumothorax and right ninth, 10th, 11th rib fractures. Once chest tube was placed, pneumothorax resolved. Final chest x-ray on August 16 showed a small right apical pneumothorax that was asymptomatic. Chest tube was placed Chest CT confirmed interval placement of the right-sided chest tube with a 25% residual pneumothorax on the right, fractures of the ribs as above. Extensive subcutaneous emphysema over the right chest wall. Left lung well aerated. C-spine CT showed no acute traumatic abnormality of the C-spine Abdomen pelvis CT was done because of trauma. He had innumerable hypodensities in the liver consistent with metastatic disease. Gallbladder not distinctly identified. Spleen normal. Adrenal glands were normal without nodules. The kidneys had no solid or cystic masses. Bowel loops normal. - ALLERGIES Allergies/Adverse Reactions: Allergies Allergy/AdvReac Type Severity Reaction Status Date / Time No Known Drug Allergies Allergy Verified 12/23/20 17:20 - MEDICATIONS Home Medications: Ambulatory Orders Medication Instructions Recorded Confirmed Aspirin [Adult Aspirin Regimen] 81 mg PO DAILY 03/08/20 08/13/22 Omeprazole 20 mg PO DAILY 03/08/20 08/12/22 Tamsulosin [Flomax] 0.4 mg PO DAILY 03/08/20 08/12/22 Senna [Senokot] 1 tab PO DAILY 12/23/20 08/13/22 Buprenorphine HCl/Naloxone HCl 0.5 film SL TID 08/12/22 08/13/22 [Buprenorphine-Nalox 8-2Mg Film] Budesonide/Formoterol Fumarate 1 - 2 puffs INH Q4H PRN 08/13/22 08/13/22 [Symbicort 160-4.5 Mcg Inhaler] diphenhydrAMINE [Benadryl] 25 mg PO DAILY PRN 08/13/22 08/13/22 Amox/Clav 500/125 [Augmentin 1 tablet PO Q12H #6 tablet 08/21/22 500/125] Acetaminophen [Pain Relief] 650 mg PO Q6H PRN #12 tab 08/22/22 Bisacodyl Supp [Dulcolax Supp] 10 mg [place] DAILY PRN #3 supp 08/22/22 Haloperidol Oral Soln [Haldol Oral 1 mg PO Q6H PRN #15 ml 08/22/22 Soln] Hyoscyamine [Levsin] 0.125 mg SL Q4H PRN #12 tablet 08/22/22 LORazepam [Lorazepam INTENSOL] 1 mg PO Q6H PRN #5 ml 08/22/22 Morphine Oral Soln [Roxanol] 5 mg PO Q4H PRN #30 ml 08/22/22 Sennosides/Docusate Sodium 1 each PO BID PRN #10 tablet 08/22/22 [Senna-S Tablet] - LABS Result Diagrams: 08/18/22 04:24 08/18/22 04:24"
[2022-08-23] MEDS: BUPRENORPHINE/NALOXONE 8-2 MG TAB SL SCH ×2 (00:24→08:28)
[2022-08-23] MEDS: PIPERACILLIN/TAZOBACTAM 3.375 GM in SODIUM CHLORIDE 0.9% MINIBAG 100 ML IV SCH ×2 (00:24→08:30)
[2022-08-23] MEDS: SODIUM CHLORIDE FLUSH 0.9% 10 ML SYRINGE IVP SCH ×2 (00:27→08:41)
--- NOTE | 2022-08-23 07:24 | Discharge Plan ---
Discharge Plan Problem Reviewed?: Yes Disposition: 50 Hospice/Home DC/Xfer Condition: Poor Prescriptions: Bisacodyl Supp [Dulcolax Supp] 10 mg DE DAILY PRN #3 supp PRN Reason: Constipation Haloperidol Oral Soln [Haldol Oral Soln] 1 mg PO Q6H PRN #15 ml PRN Reason: Nausea / Vomiting Hyoscyamine [Levsin] 0.125 mg SL Q4H PRN #12 tablet PRN Reason: secretions LORazepam [Lorazepam INTENSOL] 1 mg PO Q6H PRN #5 ml PRN Reason: Anxiety Acetaminophen [Pain Relief] 650 mg PO Q6H PRN #12 tab PRN Reason: fever, pain, headache Morphine Oral Soln [Roxanol] 5 mg PO Q4H PRN #30 ml PRN Reason: pain or breathlessness Sennosides/Docusate Sodium [Senna-S Tablet] 1 each PO BID PRN #10 tablet PRN Reason: Constipation Diet: Regular (soft mechanical) Activity Restrictions: Activity as Tolerated Shower Restrictions: No Driving Restrictions: No Health Concerns: You have been losing weight for 2 years and getting gradually weaker and weaker. This finally resulted in you see your PCP on Saturday, August 13. It is a private practice we do not have access to those records. Then you collapsed on Saturday were brought to the hospital August 14. Because of your collapse, you broke several ribs, and also needed a chest tube for inflating a collapsed lung. You finally recovered from the collapsed lung and the chest tube was pulled. We found to be profoundly malnourished gentleman who has a history of head and neck cancer. Unfortunately one of the CT scans for your rib fractures showed your cancer has come back and has spread to multiple lesions in your liver. You and your family have decided you will transition to hospice. Plan of Treatment: During your stay, our plan of treatment consisted of mainly inflating your lung, taking care of your rib cage pain. You did develop a touch of pneumonia because you could not take a deep breath. Discharge plan is to: 1. Hospice will take over and start processing you on August 23. They have all the equipment you would need such as a hospital bed, medications, etc. 2. Because you cannot take care of yourself due to weakness, you will be discharged to a [facility] and will be living there. You and your son have made arrangements for this. Paperwork was signed 08/22/22. 3. You have completed & days antibiotics for a small pneumonia seen on chest xray and do not need any more treatment. 4. Please let your primary care provider office, Dr. Barboza, know that you are at home with hospice Care Goals: To have your pain and discomfort managed adequately so that you have comfort and peace being at home. Your goal is to pass away at home. Assessment: Patient is alert, aware that he is going home with hospice, and his main worry is where his "bed will be" Follow-Up Care: Hospice No Smoking: If you smoke, Please STOP! Call for help. Follow-up with: Maggie Chao MD [Provider Admit Priv/Credential] -
[2022-08-23 08:09] VITALS: BP 155/77
[2022-08-23] MEDS: SENNA 8.6 MG TABLET PO SCH (08:28)
[2022-08-23] MEDS: DOCUSATE SODIUM 250 MG CAPSULE PO SCH (08:29)
[2022-08-23] MEDS: polyethylene glycoL 3350 17 GM PACKET PO SCH (08:29)
[2022-08-23] MEDS: ENOXAPARIN 40 MG/0.4 ML SYRINGE SUBQ SCH ×2 (08:41→09:35)
[2022-08-23] MEDS ORDERED: LORazepam 1 MG TABLET PO PRN (09:22)
== END 2022-08-23 11:40 | disposition hospice, home (50) | DRG 199 ==
LOC: EDUNIT# → ED 12:31 → MS2 14:22
PROVIDERS: ADMIT Surgery; ATTEND Specialist
DX: S27.0XXA Traumatic pneumothorax, initial encounter (principal); E43 Unspecified severe protein-calorie malnutrition; J18.9 Pneumonia, unspecified organism; S22.41XA Multiple fractures of ribs, right side, initial encounter for closed fracture; R64 Cachexia; Z68.1 Body mass index [BMI] 19.9 or less, adult; C78.7 Secondary malignant neoplasm of liver and intrahepatic bile duct; W19.XXXA Unspecified fall, initial encounter; Y92.009 Unspecified place in unspecified non-institutional (private) residence as the place of occurrence of the external cause; F10.21 Alcohol dependence, in remission; I10 Essential (primary) hypertension; I73.9 Peripheral vascular disease, unspecified; E78.00 Pure hypercholesterolemia, unspecified; J43.9 Emphysema, unspecified; K08.109 Complete loss of teeth, unspecified cause, unspecified class; K21.9 Gastro-esophageal reflux disease without esophagitis; N40.0 Benign prostatic hyperplasia without lower urinary tract symptoms; G89.29 Other chronic pain; M54.9 Dorsalgia, unspecified; C76.0 Malignant neoplasm of head, face and neck; D63.8 Anemia in other chronic diseases classified elsewhere; R40.0 Somnolence; R62.7 Adult failure to thrive; R63.8 Other symptoms and signs concerning food and fluid intake; Z63.8 Other specified problems related to primary support group; Z66 Do not resuscitate; Z74.01 Bed confinement status; Z79.82 Long term (current) use of aspirin; Z79.899 Other long term (current) drug therapy; Z97.2 Presence of dental prosthetic device (complete) (partial)
CPT/HCPCS: 32551; 36415; 70450; 71045; 71260; 72125; 74177; 80048; 80053; 83735; 85025; 85610; 86850; 86900; 86901; 93005; 96374; 96375; 99152; 99285; 99291; A9270; J0131; J1170; J1650; J8499; Q9967

== ENCOUNTER 2022-08-23 11:48 | Outpatient (CLI) | payer MEDICARE, OTHER | END 2022-08-23 23:59 | disposition hospice, home (50) | LOC: EMS 11:48 | PROVIDERS: ATTEND Specialist | DX: Z51.5 Encounter for palliative care (principal); R53.1 Weakness; Z74.01 Bed confinement status | CPT/HCPCS: A0425; A0428 ==